=== PATIENT | female | born 1930 | race Caucasian/White ===

== ENCOUNTER 2017-12-16 20:01 | Inpatient (IN) | payer OTHER, MEDICARE ==
[~2017-12-16] VITALS: Ht 157.5 cm; Wt 76.9 kg
--- NOTE | 2017-12-16 20:19 | ED GENERAL ADULT ---
History of Present Illness General Chief Complaint: General Adult Stated Complaint: BIBA WEAKNESS Source: patient, family, EMS Exam Limitations: no limitations Vital Signs & Intake/Output Vital Signs & Intake/Output Vital Signs Date Time Temp Pulse Resp B/P B/P Pulse O2 O2 Flow FiO2 Mean Ox Delivery Rate 12/16 2130 62 113/60 12/16 2021 97 Room Air 12/16 2010 98.1 62 18 119/56 97 Room Air Allergies Coded Allergies: No Known Allergies (12/16/17) Triage Note: 87F BIBA FOR GENERAL MALAISE AND WEAKNESS MOSTLY TO LEGS. FAMILY REPORTS PT HAD A HEADACHE THIS MORNING AND WAS OBSERVED USING WALKING AND WEAK TO RIGHT SIDE WITH DRIFTING. PT STATES BOTH LEGS FELT WEAK AND IF THEY DIDN'T WANT TO WORK. ON ARRIVAL STRENGTH 5/5 AND NIHSS 0. SPEECH CLEAR, NO FACIAL DROOP AND AAOX4. ABLE TO FOLLOW COMMANDS. FOCAL NEUROS INTACT AND EOM INTACT. FTN INTACT. ACCUCHECK 193 ON ARRIVAL. SLIGHT FOOT TREMOR TO RIGHT. CONTINUES TO ENDORSE HEADACHE TO OCCIPUT AREA AND NECK. STATES "EVERYTHING HURTS" BUT DENIES SIGNIFICANT CP/SOB/PALPITATIONS Triage Nurses Notes Reviewed? yes HPI: Shortly after waking up this morning patient noticed a pressure sensation in the upper portion of her neck and lower portion of her head. Throughout the day the pain has waxed and waned in intensity but has not gone away entirely. Patient states his times a day feels like that area is very heavy and other times it feels like it is very light. Patient cannot rate the pain other than to say if it is moderate at worst and mild at best. There are no aggravating or mitigating factors. There is no radiation. This evening after dinner she got up to walk to the bathroom when all of a sudden in both of her legs felt very weak and she began to lean towards the right. Patient ambulates with a walker. Her family was able to catch her before she fell on a chair oh for her to sit in. After a few minutes patient was able to finish getting to the bathroom and with her daughter's health was able to use the facilities. Her daughter noticed that she was very shaky and appeared weak all over so she helped her in the bathroom. While walking out of the bathroom again she began to lean towards the right and was very weak and her family at her and again Sunday chair. EMS was contacted. Patient is currently feeling better from a weakness standpoint however she still has that pressure sensation in the back of her head. Past History Medical History Any Pertinent Medical History? see below for history Cardiovascular: CAD, hypertension, hyperlipidemia, mitral regurgitation Endocrine: diabetes Surgical History Surgical History: PACEMAKER Psychosocial History What is your primary language Guyanese Tobacco Use: Quit >30 days ago ETOH Use: denies use Illicit Drug Use: denies illicit drug use Family History Hx Contributory? No Review of Systems Review of Systems Constitutional: Reports: no symptoms. EENTM: Reports: no symptoms. Respiratory: Reports: no symptoms. Cardiovascular: Reports: no symptoms. GI: Reports: no symptoms. Genitourinary: Reports: no symptoms. Musculoskeletal: Reports: no symptoms. Skin: Reports: no symptoms. Neurological/Psychological: Reports: see HPI. Hematologic/Endocrine: Reports: no symptoms. Immunologic/Allergic: Reports: no symptoms. All Other Systems: Reviewed and Negative Physical Exam Physical Exam General Appearance: well developed/nourished, alert, awake, anxious, mild distress Head: atraumatic, normal appearance Eyes: Bilateral: PERRL, EOMI. Ears, Nose, Throat: normal pharynx, normal ENT inspection, hearing grossly normal, NO FACIAL DROOP Neck: normal inspection, supple, full range of motion, no midline tenderness Respiratory: normal breath sounds, chest non-tender, no respiratory distress, lungs clear Cardiovascular: regular rate/rhythm, normal peripheral pulses Gastrointestinal: normal bowel sounds, soft, non-tender, no organomegaly Back: normal inspection, normal range of motion Extremities: normal inspection, normal capillary refill, normal range of motion, no edema Neurologic/Psych: no motor/sensory deficits, awake, alert, oriented x 3, normal mood/affect, clinical administrative coordinator II-XII nml as tested Skin: intact, normal color, warm/dry Comments: NO PRONATOR DRIFT MOTOR 5/5 B/L AND SYMETRICAL NORMAL FINGER TO NOSE VISUAL MACK INTACT NORMAL SPEECH Core Measures ACS in differential dx? No CVA/TIA Diagnosis: No Sepsis Present: No Sepsis Focused Exam Completed? No Progress Differential Diagnoses I considered the following diagnoses in my evaluation of the patient: [CVA, ICH, CERVICAL INJURY, ELECTROLYTE ABNOMALITY, AMI, UTI, PNEUMONIA] Plan of Care: Orders Procedure Date/time Status Heart Healthy Diet 12/17 B Active ED Holding Orders 12/17 2207 Active Admit to inpatient 12/17 2207 Active Vital Signs 12/17 2207 Active Desouza, Insertion/Removal/Asses 12/17 2207 Active CULTURE,URINE 12/17 2207 Active Code Status 12/17 2207 Active Telemetry/Elevator Dispatcher 12/17 2011 Active URINALYSIS 12/17 2011 Active TROPONIN LEVEL 12/17 2011 Complete PARTIAL THROMBOPLASTIN TIME 12/17 2011 Complete PROTHROMBIN TIME 12/17 2011 Complete COMPREHENSIVE METABOLIC PANEL 12/17 2011 Complete CBC WITHOUT DIFFERENTIAL 12/17 2011 Complete EKG 12/17 2007 Active Current Medications Sig/Lucia Start time Last Medication Dose Stop Time Status Admin Aspirin 325 MG ONCE ONE 12/16 2144 UNVr 12/16 (Aspirin) 12/16 Sodium Chloride 1,000 ML Q6H 12/16 2044 AC 12/16 (Normal Saline 0.9%) 2034 Laboratory Tests 12/16/172021: Anion Gap 15, Estimated GFR 25 L, BUN/Creatinine Ratio 23.7, Glucose 178 H, Calcium 9.5, Total Bilirubin 0.8, AST 23, ALT 34, Alkaline Phosphatase 62, Troponin I 0.12 *H, Total Protein 7.3, Albumin 4.2, Globulin 3.1, Albumin/ Globulin Ratio 1.4, PT 13.0 H, INR 1.19, APTT 28, CBC w Diff NO MAN DIFF REQ, RBC 4.18 L, MCV 90.2, MCH 30.4, MCHC 33.7, RDW 13.1, MPV 8.7, Gran % 83.8 H, Lymphocytes % 8.9 L, Monocytes % 6.2, Eosinophils % 1.0, Basophils % 0.1, Absolute Granulocytes 7.9 H, Absolute Lymphocytes 0.8 L, Absolute Monocytes 0.6, Absolute Eosinophils 0.1, Absolute Basophils 0 Microbiology 12/17 2207 URINE ROUT: Urine Culture - ORD Diagnostic Imaging: Viewed by Me: Radiology Read, CT Scan. Discussed w/RAD: Radiology Read, CT Scan. Radiology Impression: PATIENT: EROS MCGOWAN PRESENT AGE : 87 PATIENT ACCOUNT NO: [id number] : [birth year] LOCATION: [facility] ORDERING PHYSICIAN: Andreas Villanueva MD SERVICE DATE: 12/16/17 EXAM TYPE: CAT - CT CERV SPINE WO IV CONTRAST; CT HEAD WO IV CONTRAST EXAMINATION: CT HEAD WITHOUT CONTRAST CT CERVICAL SPINE WITHOUT CONTRAST CLINICAL INFORMATION: Bilateral lower extremity weakness which has resolved. Posterior scalp headache all day. Neck pain all day. COMPARISON: Head and cervical spine CT 10/10/2008. TECHNIQUE: Axial images of the head and cervical spine were obtained without contrast. Reformatted images were reviewed. DLP 903. FINDINGS: Head CT: No intracranial hemorrhage or territorial infarction. No extra-axial fluid collection. No mass effect or midline shift. There is periventricular and subcortical white matter hypoattenuation which is consistent with sequela of ischemic microangiopathy. Ventricles and sulcal spaces are proportionate without hydrocephalus. No subgaleal hematoma. No calvarial fracture. Mastoid air cells and paranasal sinuses are aerated. Cervical spine CT: No fracture or dislocation. There is chronic appearing grade 1 anterolisthesis of C7 on T1. No other spondylolisthesis. No prevertebral soft tissue swelling. No widening of the atlantoaxial interval. There is a crowned dens appearance. Multilevel degenerative endplate changes and disc space narrowing with anterior and posterior osteophyte formation. There is a degree of ossification along the anterior and posterior longitudinal ligaments. Multilevel facet arthropathy. There is mild multilevel canal stenosis. Partially visualized left pectoral cardiac device. IMPRESSION: 1. No acute intracranial pathology. Chronic changes as above. 2. No acute cervical spine pathology. At least moderate multilevel degenerative changes of the cervical spine, which have progressed since 2007. DICTATED BY: Fausto Templeton MD DATE/TIME DICTATED:12/16/172034 CORPORATE MEETING PLANNER:JERRY DATE/TIME TRANSCRIBED:12/16/172034 CONFIDENTIAL, DO NOT COPY WITHOUT APPROPRIATE AUTHORIZATION. <Electronically signed in Other Vendor System> SIGNED BY: Fausto Templeton MD 12/16/172045 CXR Impression: PATIENT: EROS MCGOWAN PRESENT AGE: 87 PATIENT ACCOUNT NO: [id number] : [birth year] LOCATION: [facility] ORDERING PHYSICIAN: Andreas Villanueva MD SERVICE DATE: 12/16/17 EXAM TYPE: RAD - XRY- PORTABLE CHEST XRAY EXAMINATION: XR PORTABLE CHEST CLINICAL INFORMATION: Weakness and pneumonia. COMPARISON: None TECHNIQUE: Portable frontal view of the chest was obtained. FINDINGS: Left pectoral cardiac device with leads terminating over the right atrium and right ventricle. The lungs are well expanded. There is mild left midlung opacification. The right lung is clear. No overt pulmonary edema or pleural effusion. The cardiac contour is mildly enlarged. No acute osseous abnormalities. IMPRESSION: Mild left midlung opacification, consider subtle pneumonia or atelectasis. DICTATED BY: Fausto Templeton MD DATE/TIME DICTATED:12/16/172050 CORPORATE MEETING PLANNER:JERRY DATE/TIME TRANSCRIBED:12/16/172050 CONFIDENTIAL, DO NOT COPY WITHOUT APPROPRIATE AUTHORIZATION. <Electronically signed in Other Vendor System> SIGNED BY: Fausto Templeton MD 12/16/172056 Initial ED EKG: pacemaker rhythm Rhythm Strip: PACED Comments: Family states that the patient had very similar symptoms approximately 1 year ago when she had a urinary tract infection and her symptoms resolved after she received antibiotics. No fevers, chills or coughing. No signs of pneumonia. Unknown what her baseline creatinine is however family states that they have not heard that she has had any kidney problems. Departure Departure Disposition: STILL A PATIENT Condition: Fair Clinical Impression Primary Impression: Acute renal injury Secondary Impressions: Elevated troponin Referrals: Patient Has No Primary Care Dr Departure Forms: Customer Survey General Discharge Information Admission Note [facility]: [facility] Documentation of Exam: Documentation of any treatments & extenuating circumstances including Concerns Regarding Discharge (functional status, medication knowledge or non-compliance, living conditions, etc.) that warrant an admission rather than observation: [IV FLUIDS, ASA, CARDIOLOGY CONSULTATION, NEPHROLOGY CONSULTATION, STRICT I&O'S, FOLLOW UP UA FOR POSSIBLE UTI REQUIRING IV ABX.] Critical Care Note Critical Care Note Critical Care Time: non-applicable
[2017-12-16 20:37] LABS: ABSOLUTE BASOPHIL COUNT 0 /CUMM (0.0-0.2); ABSOLUTE EOSINOPHIL COUNT 0.1 /CUMM (0.0-0.7); ABSOLUTE GRANULOCYTE CT 7.9 /CUMM (1.4-6.5); ABSOLUTE LYMPH COUNT 0.8 /CUMM (1.2-3.4); ABSOLUTE MONOCYTE COUNT 0.6 /CUMM (0.10-0.60); BASOPHIL % 0.1 % (0.0-2.0); GRANULOCYTE % 83.8 % (42.2-75.2); HEMATOCRIT 37.7 % (37-47); MEAN CORPUSCULAR HGB 30.4 PG (27.0-31.0); MEAN CORPUSCULAR HGB CONC 33.7 G/DL (33.0-37.0); MEAN CORPUSCULAR VOLUME 90.2 FL (81.0-99.0); MEAN PLATELET VOLUME 8.7 FL (7.4-10.4); PLATELET COUNT 175 /CUMM (130-400); RBC DISTRIBUTION WIDTH 13.1 % (11.5-14.5); RED BLOOD CELL CT 4.18 /CUMM (4.20-5.40); WHITE BLOOD CELL COUNT 9.4 /CUMM (4.8-10.8)
[2017-12-16 20:42] LABS: PTT 28 SEC (25-37)
--- NOTE | 2017-12-16 20:46 | CT SCAN REPORT ---
EXAMINATION: CT HEAD WITHOUT CONTRAST CT CERVICAL SPINE WITHOUT CONTRAST CLINICAL INFORMATION: Bilateral lower extremity weakness which has resolved. Posterior scalp headache all day. Neck pain all day. COMPARISON: Head and cervical spine CT 10/10/2008. TECHNIQUE: Axial images of the head and cervical spine were obtained without contrast. Reformatted images were reviewed. DLP 903. FINDINGS: Head CT: No intracranial hemorrhage or territorial infarction. No extra-axial fluid collection. No mass effect or midline shift. There is periventricular and subcortical white matter hypoattenuation which is consistent with sequela of ischemic microangiopathy. Ventricles and sulcal spaces are proportionate without hydrocephalus. No subgaleal hematoma. No calvarial fracture. Mastoid air cells and paranasal sinuses are aerated. Cervical spine CT: No fracture or dislocation. There is chronic appearing grade 1 anterolisthesis of C7 on T1. No other spondylolisthesis. No prevertebral soft tissue swelling. No widening of the atlantoaxial interval. There is a crowned dens appearance. Multilevel degenerative endplate changes and disc space narrowing with anterior and posterior osteophyte formation. There is a degree of ossification along the anterior and posterior longitudinal ligaments. Multilevel facet arthropathy. There is mild multilevel canal stenosis. Partially visualized left pectoral cardiac device. IMPRESSION: 1. No acute intracranial pathology. Chronic changes as above. 2. No acute cervical spine pathology. At least moderate multilevel degenerative changes of the cervical spine, which have progressed since 2007.
--- NOTE | 2017-12-16 20:57 | RADIOLOGY REPORT ---
EXAMINATION: XR PORTABLE CHEST CLINICAL INFORMATION: Weakness and pneumonia. COMPARISON: None TECHNIQUE: Portable frontal view of the chest was obtained. FINDINGS: Left pectoral cardiac device with leads terminating over the right atrium and right ventricle. The lungs are well expanded. There is mild left midlung opacification. The right lung is clear. No overt pulmonary edema or pleural effusion. The cardiac contour is mildly enlarged. No acute osseous abnormalities. IMPRESSION: Mild left midlung opacification, consider subtle pneumonia or atelectasis.
--- NOTE | 2017-12-16 22:14 | History & Physical ---
Eriberto Harper MD 12/16/17 6884: General Information and HPI MD Statement: I have seen and personally examined EROS SANFORD and documented this H&P. The patient is a 87 year old F who presented with a patient stated chief complaint of [malaise and weakness]. Source of Information: patient, family History of Present Illness: Patient is 87-year-old female with past medical history of CAD status post CO and stent in 2009, status post pacemaker, mitral regurgitation hyperlipidemia, hypertension, diabetes presenting this admission after being brought in by ambulance due to generalized weakness mostly in the lower extremities. Patient's son and [id number] were at bedside and supplied much of the history. Reported that patient has been feeling weak over the past few days. Patient reports that her legs have been hurting and she occasionally feels numbness in both her legs. Patient's family reports that the reason for this admission is that the patient had eaten dinner at approximately 7 PM. At which point patient tried to stand up and walk with her walker however within a few minutes the patient started to collapse towards the floor favoring her right side. This was witnessed by the family will report that they were able to catch the patient before she could fall or hit her head. Patient denies any dizziness , lightheadedness, chest pain, palpitations, feeling of warmth, or numbness and tingling at the time of this event. Patient reports seeing white blotches prior to the event. Patient denies any physical trauma or loss of consciousness. Patient reports a decrease in appetite and reports trouble swallowing due to a fear of choking and reports feeling as though she has food stuck in her throat. Patient also reports early satiety. Denies odynophagia, abdominal pain, nausea/ vomitting, diarrhea/constipation, melena or hematochezia, fever/chills, or cough. Patient reports occasional burning on urination. Has urinary incontinence. Denies increased frequency. Denies hematuria. Patient reports dyspnea on exertion and orthopnea. Denies dyspnea at rest or bilateral lower extremity edema. Patient also reports headache around her occipital region, neck pain and shoulder pain for the past few days. Denies any decrease in range of motion. Denies any recent trauma or falls. Patient has had similar symptoms in the past. At that time she was admitted to [facility] and treated for a UTI. Deny any sick contacts or recent travel. Patient's PCP is Dr. Kyle and mixer operator raw salt is Dr. Ramirez ([place]). PMH: as above PSH: Angioplasty with stent placement, left sided knee replacement, carpal tunnel syndrome, back surgery, hysterectomy SH: Denies alochol, illicit drug or tobacco use. Lives with family (son and [id number]). Uses a rolling walker to assist in ambulation FH: Dad at age 91 of natural causes, mother at age 43 ( is unsure of reason, however denies cardiac problems) Allergies: Denies any drug allergies Allergies/Medications Allergies: Coded Allergies: No Known Allergies (12/16/17) Past History Travel History Traveled to [facility] past 21 day No Medical History Neurological: NONE EENT: NONE Cardiovascular: CAD, hypertension, hyperlipidemia, mitral regurgitation Respiratory: NONE Gastrointestinal: NONE Hepatic: NONE Renal: NONE Musculoskeletal: NONE Psychiatric: NONE Endocrine: diabetes Blood Disorders: NONE Surgical History Surgical History: PACEMAKER Past Family/Social History Psychosocial History ETOH Use: denies use Illicit Drug Use: denies illicit drug use Review of Systems Review of Systems Constitutional: Reports: see HPI. Cardiovascular: Reports: see HPI. Respiratory: Reports: see HPI. GI: Reports: no symptoms. Genitourinary: Reports: see HPI. Musculoskeletal: Reports: see HPI. Skin: Reports: no symptoms. Neurological/Psychological: Reports: see HPI, anxiety. Hematologic/Endocrine: Reports: no symptoms. Immunologic/Allergic: Reports: no symptoms. All Other Systems: Reviewed and Negative Exam & Diagnostic Data Last 24 Hrs of Vital Signs/I&O Vital Signs Date Time Temp Pulse Resp B/P B/P Pulse O2 O2 Flow FiO2 Mean Ox Delivery Rate 12/17 1151 61 110/60 03/05 1149 61 110/60 /05 0641 97.8 65 20 104/58 98 Room Air /05 0001 Room Air / 0001 98.2 66 18 104/56 96 Room Air /6 98.0 71 18 118/64 98 Room Air / 2131 62 113/60 /2021 97 Room Air 12/16 2010 98.1 62 18 119/56 97 Room Air Intake & Output / 1600 /05 0800 03/ 0000 Intake Total 1120 300 Output Total 500 100 Balance 620 200 Intake, IV 1000 300 Intake, Oral 120 Output, Urine 500 100 Patient 165 lb Weight Weight Bed scale Measurement Method Physical Exam General Appearance Alert, Oriented X3, Cooperative, No Acute Distress Skin Temp/Moisture Exam: Warm/Dry HEENT Atraumatic, PERRLA, EOMI, Mucous Membr. moist/pink Cardiovascular Regular Rate, Normal S1, Normal S2 Lungs Clear to Auscultation, Normal Air Movement Abdomen Normal Bowel Sounds, Soft, No Tenderness Neurological Normal Speech, Normal Tone, Sensation Intact, Cranial Nerves 3-12 NL, Reflexes 2+, strength decreased on left lower extremtiy 4/5, pronator drift of RUE Extremities No Clubbing, No Cyanosis, No Edema, Normal Pulses, No Tenderness/ Swelling Last 24 Hrs of Labs/Jose Juan: Laboratory Tests 12/16/172222: Urinalysis LIGHT H, Urine Color YEL, Urine Clarity HAZY H, Urine pH 6.0, Ur Specific [place] 1.015, Urine Protein TRACE H, Urine Ketones NEG, Urine Nitrite POS H, Urine Bilirubin NEG, Urine Urobilinogen 0.2, Ur Leukocyte Esterase NEG, Ur Microscopic SEDIMENT EXAMINED, Ur Epithelial Cells FEW, Urine Bacteria MANY H, Urine Hemoglobin TRACE-INTACT, Urine Glucose NEG 12/16/172021: Anion Gap 15, Estimated GFR 25 L, BUN/Creatinine Ratio 23.7, Glucose 178 H, Calcium 9.5, Total Bilirubin 0.8, AST 23, ALT 34, Alkaline Phosphatase 62, Creatine Kinase Pending, Troponin I 0.12 *H, Total Protein 7.3, Albumin 4.2, Globulin 3.1, Albumin/Globulin Ratio 1.4, PT 13.0 H, INR 1.19, APTT 28, CBC w Diff NO MAN DIFF REQ, RBC 4.18 L, MCV 90.2, MCH 30.4, MCHC 33.7, RDW 13.1, MPV 8.7, Gran % 83.8 H, Lymphocytes % 8.9 L, Monocytes % 6.2, Eosinophils % 1.0, Basophils % 0.1, Absolute Granulocytes 7.9 H, Absolute Lymphocytes 0.8 L, Absolute Monocytes 0.6, Absolute Eosinophils 0.1, Absolute Basophils 0 12/16/172011: Ur Random Creatinine 59.9, Ur Random Sodium 75, Ur Random Potassium 45.0, Fraction Sodium Excret 1.6 H Microbiology 12/16 2316 BLOOD: Blood Culture - CAN Cancelled: Cancelled via OE: Error 12/16 2316 BLOOD: Blood Culture - CAN Cancelled: Cancelled via OE: Error 12/16 2255 BLOOD: Blood Culture - RES 12/16 2222 URINE ROUT: Urine Culture - RES GRAM NEGATIVE RODS Assessment/Plan Assessment: Patient is 87-year-old female with past medical history of CAD status post CO and stent in 2009, status post pacemaker, mitral regurgitation hyperlipidemia, hypertension, diabetes presenting this admission after being brought in by ambulance due to generalized weakness mostly in the lower extremities. Assessment and Plan: Patient is an 87 y/o female with signficant cardiac history presenting with generalized weakness and signs of focal neurologic deficits with pronator drift and lower extremity weakness greater on the left side. Patient reports dysuria and on UA patient has nitrites and bacteria. Patient's weakness may be attributed to UTI however due to neurologic deficits patient should be further evaluated for possible stroke. Patient's CXR shows mid left lung opacification which may be indicative of pneumonia vs atelectasis however with no fever, respiratory distress, or leukocytosis it is unlikely that patient has pneumonia. Patient's creatinine was 1.9. Patient reports decreased appetite. Per records from [place] patient's creatinine is around 1.5. Patient's acute renal failure is likey prerenal due to poor oral intake. Patient's head, neck and shoulder pain is likely secondary to arthritic changes seen on cervical spine CT. No acute finds seen on cervical spine CT or head CT. Patient also had elevated troponin with no EKG changes. Due to patient's signficant cardiac history and mildly elevated trops she will be admitted to telemetry. Patient's elevated troponin is likley secondary to demand ischemia, however will need to rule out ACS. Problems: 1. Generalized weakness 2. Rule out stroke 3. UTI 4. Elevated Troponin 5. OTILIO on CKD 6. CAD s/p pacemaker and stent Plan: Admit to telemetry Neurochecks q4h Serial EKG and troponin ECHO Cardiology consult placed with Dr. Epperson MRI (if compatible with stent and pacemaker) Aspirin Continue Plavix Atorvastatin Ceftriaxone for UTI Follow up urine culture and blood cultures x 2 Repeat CBC and BEP in AM Consider pacemaker interrogation Obtain records from [place] mixer operator raw salt and [facility] PT/OT consult Insulin SS with Accuchecks Gentle IV hydration Avoid nephrotoxic agents Hold lasix and losartan at this time Continue pepcid ac Code: Full code Diet: Diabetic diet DVT PPx: ALPS, Heparin SC As Ranked By This Provider Problem List: 1. Acute renal injury 2. Elevated troponin Core Measures/Misc (07/01) Acute Coronary Syndrome ACS Diagnosis: No Congestive Heart Failure Congestive Heart Failure Diagnosis No Cerebrovascular Accident CVA/TIA Diagnosis: Yes VTE (View Protocol) VTE Risk Factors Age>40 No Mechanical VTE Prophylaxis d/t N/A MechProphylax Ordered No VTE Pharm Prophylaxis d/t NA PharmProphylax ordered Sepsis (View protocol) Sepsis Present: No Caleb Connoroswaldo 12/17/17 0223: General Information and HPI Allergies/Medications Home Med list Carvedilol 6.25 MG TABLET 1 TAB PO BID HEART (Reported) Clopidogrel Bisulfate (Clopidogrel) 75 MG TABLET 1 TAB PO DAILY HEART ( Reported) Furosemide 40 MG TABLET 1 TAB PO DAILY HEART (Reported) Linagliptin (Tradjenta) 5 MG TABLET 1 TAB PO DAILY DIABETES (Reported) Losartan Potassium 100 MG TABLET 1 TAB PO DAILY HEART (Reported) Potassium Chloride 10 MEQ TAB.ER.PRT 1 TAB PO DAILY HEART (Reported) Rosuvastatin Calcium (Crestor) 40 MG TABLET 1 TAB PO DAILY HEART (Reported) Resident Review Statement Resident Statement: examined this patient, discussed with accounting intern, agreed with accounting intern, amended to note Other Findings: Ms Sanford is an 87 year old woman w/ a PMHx of CAD s/p PCI ( LAD stent, type unclear ), ishcemic dilated cardiomyopathy, HFrEF, bradyarrythmis s/p pacemaker ( follows w/ Dr. Ramirez ), MR who was brought in w/ a chief concern of occipital headache, bilateral lower extremity weakness, difficulty in ambulation with drifting to right side while walking 1 day. She started having occipital headache after she woke up which was not relieved, and felt weak in her lower extremities after she sat in a chair for a few hours. After she got out of her chair, she had difficulty ambulating and was drifting to the right side upon walking. She did not have any neurological weakness, tingling numbness sensation, loss of bladder bowel function, seizures, loss of consciousness, vision changes. She did not have any chest pain, palpitations, shortness of breath. No nausea vomiting or diarrhea. Reported occasional dysuria. She also reported difficulty swallowing occasionally, but did not have any odynophagia. She was not evaluated by gold leaf laborer so far. At the time of admission, vitals-temperature 98.1, pulse rate 62, respiration 18 , blood pressure 119/56, pulse ox 97% on room air. On examination, she appeared euvolemic. And she was alert oriented 3. No pallor, lymphadenopathy noted. Heart and lung examination were within normal limits. Neurological examination- cranial nerve examination within normal limits, strength 4/5 right upper and lower extremities, reflexes 5/5 bilaterally, no sensory deficits. Pedal edema 2 +. Pertinent lab findings: WBC 9.4, hemoglobin 12.7 Sodium 140, potassium 4.8, carbonate 26 BUN 45, creatinine 1.9 (baseline unknown, history of chronic kidney disease) Troponin 0.16 Urinalysis revealed urine nitrite positive, leukocyte esterase negative. CT scan head revealed no acute pathology, or have any radiological signs suggestive of infarction or hemorrhage. Multilevel degenerative changes of cervical spine were noted. Chest x-ray revealed mild left mid lung opacification seen. Etiology in her case was likely multifactorial, with decreased by mouth intake causing increased weakness or lethargy. She also had UA suggestive of urinary tract infection which could have led to her weakness. Considering her history of bradycardia arrhythmias and pacemaker, TIA/CVA needs to be ruled out. Plan: 1. Weakness-likely multifactorial. - For UTI, she needs to be treated w/ ceftriaxone pending culture results. - In regards to dehydration, would replenish with IV fluids 1 bag. - For ruling out stroke, MRI could be obtained in the a.m. after evaluating the compatibility of pacemakers. 2. Elevated cardiac enzymes - Treat with aspirin, and trend EKG and cardiac enzymes. - Cardiac consult to be obtained - Defer the decision to the mixer operator raw salt, if a cardiac damage be done. -Continue beta donna and statin. 3. Hypertension -Would continue Coreg. 4. AKA on CKD - Unsure about the baseline of serum creatinine. - Obtain records from [facility] - Strict ins and outs - Hold Lasix and losartan for now. - Recheck BP in the a.m., and restart Lasix after serum creatinine is drifting down. 5. Rule out CVA/TIA - Was given statin, aspirin. - Continue Plavix. - MRI in the a.m. If it is abnormal, neurological evaluation to be obtained. - Check carotid Dopplers. - Swallow evaluation for history of difficulty swallowing. 6. Diabetes -Old all hypoglycemic drugs - Continue insulin sliding scale, Accu-Cheks for now. Housekeepin. DVT prophylaxis-heparin subcutaneous 2. GI prophylaxis-Pepcid 3. Lites-peripheral lines. 4. CODE STATUS-full code. Guilherme WALKER, [facility] 12/17/17 0353: Attending MD Review Statement Attending Statement Attending MD Statement: examined this patient, discuss w/resident/PA/WAREHOUSE INCENTIVE SELECTOR, agreed w/resident/PA/WAREHOUSE INCENTIVE SELECTOR, discussed with family, reviewed images, amended to note Attending Assessment/Plan: 87 yo F with h/o T2DM, HTN, CAD s/p LAD stent, ischemic dilated CMP, chronic systolic CHF, bradyarrhythmia s/p PPM, mitral regurgitation, who follows with Dr. Ramirez (Cardiology) and all specialists out of [facility], is brought in by family for evaluation of occipital headache, neck pain, generalized weakness, bilateral lower extremity weakness, difficulty ambulating with leaning towards the right side that occurred on the day of admission. Family was able to catch her preventing a fall. Patient states that her legs gave away and she felt as thought the legs were not there. She did need assistance to use the bathroom and was noticebly weak. At baseline, she ambulates with a walker. Patient does report intermittent dysuria, but no urinary frequency or hematuria. Her appetite is good, she keeps herself hydrated. She denies nausea, vomiting, abdominal pain , diarrhea. Her symptoms are similar to her last admission to [facility] (2017 ) for a UTI. She has no previous h/o TIA or stroke. She reports 3-4 week h/o food getting stuck in her chest, c/o early satiety. She has to give it some time or has to burp before she can take the next bite. She denies dysphagia or odynophagia. She has never seen a GI specialist or undergone an EGD. She takes pepcid for GERD. Vitals stable. Exam: AAO, lethargic but arousable and answer questions appropriately, PERRL, Neck supple, mucous membranes moist, Chest b/l clear, Neuro: no facial droop, speech clear, cranial nerves intact, plantar unequivocal on the left foot, pronator drift slightly to the right, power 4/5 right side, sensation intact. Abd soft, left lower quadrant tenderness on deep palpation, BS+. LE: 1+ edema. Labs: no leukocytosis, INR 1.19, BUN 45, creat 1.9 (no baseline known), glucose 178, trop 0.12. UA hazy, trace proteinuria, nitrite positive, many bacteria, no WBC. CT head/ cervical spine: no acute pathology, chronic multilevel degenerative changes of cervical spine that have progressed. CXR: mild left midlung opacification, ?atelectasis or pneumonia. EKG: paced, Qtc 492. Assessment and plan: 1. Weakness, lethargy, headache 2. Acute kidney injury vs. OTILIO on CKD 3. Symptomatic acute UTI 4. Rule out TIA/ stroke 5. Elevated troponin likely demand ischemia vs reduced clearance by kidneys 6. Chronic systolic heart failure, CAD 7. Type 2 diabetes - Admit to Telemetry - Neurochecks Q4 - Fall precautions - Hold lasix and losartan - Check urine lytes - Gentle hydration, follow renal functions in AM - Strict I/O's, guerrero placed in ER - Serial EKG and troponin - Obtain echo and Cardio consult - Continue aspirin, plavix, coreg and statin - Follow urine culture, treat with Ceftriaxone. If cultures are negative, can discontinue ceftriaxone. - Obtain records from patient's mixer operator raw salt and PCP baseline renal functions - Obtain MRI brain (if pacemaker and stent compatible) - PT/OT eval - Consider Neuro consult if no clinical improvement - Passed bedside swallow eval - Check carotid dopplers - Diabetes management check HbA1c, novolog SS, hold tradjenta DVT ppx Hep SC. Full code.
--- NOTE | 2017-12-16 22:42 | Admission Certification ---
Admission Certification Certification Statement - As attending physician, I certify that at the time of - admission, based on clinical presentation, severity of - symptoms, need for further diagnostic testing and - therapeutic interventions, and risk of adverse outcomes - without in-hospital treatment, in my clinical assessment, - this patient requires an acute hospital stay for a minimum - of two nights or longer. I have also considered psychsocial - factors such as support system, advanced age, financial - issues, cognitive issues, and failed out-patient treatments, - past re-admission history, safety of patient, and lack of - compliance as applicable. Specific rationale supporting this admission is: OTILIO, elevated troponin, lethargy, weakness, rule out TIA/ stroke.
[2017-12-16] MEDS ORDERED: TRADJENTA5 M1 PO (23:41)
[2017-12-16] MEDS ORDERED: FUROSEMIDE40 M1 PO (23:41)
[2017-12-16] MEDS ORDERED: CARVEDILOL6.25 M1 PO (23:41)
[2017-12-16] MEDS ORDERED: LOSARTAN POTAS100 M1 PO (23:41)
[2017-12-16] MEDS ORDERED: CLOPIDOGREL75 M1 PO (23:42)
[2017-12-16] MEDS ORDERED: CRESTOR40 M2 PO (23:42)
[2017-12-16] MEDS ORDERED: POTASSIUM CHLO10 ME5 PO (23:42)
[2017-12-17 00:01] VITALS: BP 104/56; BP 194/56
[2017-12-17 06:01] LABS: ABSOLUTE BASOPHIL COUNT 0 /CUMM (0.0-0.2); ABSOLUTE EOSINOPHIL COUNT 0.1 /CUMM (0.0-0.7); ABSOLUTE GRANULOCYTE CT 5.8 /CUMM (1.4-6.5); ABSOLUTE LYMPH COUNT 1.4 /CUMM (1.2-3.4); ABSOLUTE MONOCYTE COUNT 0.8 /CUMM (0.10-0.60); BASOPHIL % 0.2 % (0.0-2.0); EOSINOPHIL % 1.1 % (0-5); MEAN CORPUSCULAR HGB 30.5 PG (27.0-31.0); MEAN CORPUSCULAR HGB CONC 33.8 G/DL (33.0-37.0); MEAN CORPUSCULAR VOLUME 90.2 FL (81.0-99.0); MEAN PLATELET VOLUME 9.1 FL (7.4-10.4); PLATELET COUNT 149 /CUMM (130-400); RED BLOOD CELL CT 3.49 /CUMM (4.20-5.40); WHITE BLOOD CELL COUNT 8.2 /CUMM (4.8-10.8)
[2017-12-17 06:19] LABS: HEMATOCRIT 31.5 % (37-47)
[2017-12-17 06:41] VITALS: BP 104/58
--- NOTE | 2017-12-17 07:36 | PN- Housestaff ---
Hilton WALKER,[facility] 12/17/17 0735: Subjective Follow-up For: Headache and Bilateral leg weakness worse on left Right pronator drift concerning for TIA versus stroke Symptomatic UTI Elevated troponin Chronic systolic heart failure Complaints: bilateral leg weakness Tele-Events Since Last Visit: Sinus rhythm. Paced. Heart rate 60-61 bpm. Subjective: Patient complains of bilateral leg weakness worse on the left. She denies headaches, blurring of vision, neck stiffness. She denies weakness or numbness in any other part of the body. She however complains of intermittent burning on urination for the last few days but denies hematuria. She denies fevers, chills , nausea or vomiting or abdominal pain. She denies shortness of breath or cough. She denies chest pains, palpitations or lightheadedness. Review of Systems Constitutional: Reports: see HPI. Denies: chills, fever. Objective Last 24 Hrs of Vital Signs/I&O Vital Signs Date Time Temp Pulse Resp B/P B/P Pulse O2 O2 Flow FiO2 Mean Ox Delivery Rate 12/17 0641 97.8 65 20 104/58 98 Room Air 12/17 0001 Room Air 12/17 0001 98.2 66 18 104/56 96 Room Air 12/16 2226 98.0 71 18 118/64 98 Room Air 12/16 2131 62 113/60 12/16 2021 97 Room Air 12/16 2010 98.1 62 18 119/56 97 Room Air Intake & Output / 1600 /05 0800 03/ 0000 Intake Total 1120 300 Output Total 500 100 Balance 620 200 Intake, IV 1000 300 Intake, Oral 120 Output, Urine 500 100 Patient 165 lb Weight Weight Bed scale Measurement Method Physical Exam General Appearance: Alert, Oriented X3, Cooperative, No Acute Distress Skin: No Rashes Skin Temp/Moisture Exam: Warm/Dry Sepsis Skin Exam (color): Normal for Ethnicity HEENT: Atraumatic, PERRLA, EOMI, Mucous Membr. moist/pink Neck: Supple, No JVD, No thryomegaly, +2 Carotid Pulse wo Bruit Lymphatic: Cervical nl Cardiovascular: Regular Rate, Normal S1, Normal S2, No Murmurs Lungs: Clear to Auscultation, Normal Air Movement Abdomen: Normal Bowel Sounds, Soft, No Tenderness, No Hepatospenomegaly, No Masses Neurological: Normal Speech, Normal Tone, Sensation Intact, Cranial Nerves 3-12 NL, bilateral lower limb weakness with quadriceps: right 4+/5 strength, left 4/5 strength., no facial droop. Extremities: No Edema, Normal Pulses, No Tenderness/Swelling, Small right groin, abscess Vascular: Normal Pulses Current Medications: Current Medications Sig/Lucia Start time Last Medication Dose Route Stop Time Status Admin Acetaminophen 650 MG Q8P PRN 12/16 2345 AC PO Acetaminophen 0 .STK-MED ONE 12/16 2133 DC PO Acetaminophen 650 MG ONCE ONE 12/16 2129 DC 12/16 PO 12/16 Aspirin 81 MG DAILY 12/17 1000 AC PO Aspirin 0 .STK-MED ONE 12/16 2200 DC PO Aspirin 325 MG ONCE ONE 12/16 2144 DC 12/16 PO 12/16 Atorvastatin Calcium 80 MG 1700 12/17 1700 AC PO Carvedilol 6.25 MG BID 12/17 1000 AC PO Ceftriaxone Sodium 1,000 MG 2300 12/17 2300 AC IV Ceftriaxone Sodium 1,000 MG ONCE ONE 12/16 2315 DC 12/17 IV 12/16 2316 0310 Clopidogrel Bisulfate 75 MG DAILY 12/17 1000 AC PO Famotidine 20 MG DAILY 12/17 1000 AC PO Heparin Sodium 5,000 UNIT Q8 12/17 0600 AC 12/17 (Porcine) SC 0559 Insulin Aspart 0 TIDAC 12/17 0800 AC SC Morphine Sulfate 2 MG Q8P PRN 12/17 0430 DC IV Senna/Docusate Sodium 1 TAB AT BEDTIME 12/17 2200 AC PO Sodium Chloride 1,000 ML Q6H 12/16 2045 DC 12/17 IV 12/17 0244 0312 Tramadol HCl 50 MG Q8P PRN 12/17 0430 AC PO Last 24 Hrs of Lab/Jose Juan Results Last 24 Hrs of Labs/Mics: Laboratory Tests 12/17/17 0400: Troponin I 0.16 *H, Triglycerides 48, Cholesterol 83, LDL Cholesterol, Calc 22 L, HDL Cholesterol 52, Cholesterol/HDL Ratio 2 12/17/17 0400: Anion Gap 12, Estimated GFR 28 L, BUN/Creatinine Ratio 25.3 H, CBC w Diff NO MAN DIFF REQ, RBC 3.49 L, MCV 90.2, MCH 30.5, MCHC 33.8, RDW 13.0, MPV 9.1, Gran % 71.0, Lymphocytes % 17.6 L, Monocytes % 10.1 H, Eosinophils % 1.1, Basophils % 0.2, Absolute Granulocytes 5.8, Absolute Lymphocytes 1.4, Absolute Monocytes 0.8 H, Absolute Eosinophils 0.1, Absolute Basophils 0 12/16/172313: Lactic Acid Cancelled 12/16/172222: Urinalysis LIGHT H, Urine Color YEL, Urine Clarity HAZY H, Urine pH 6.0, Ur Specific [place] 1.015, Urine Protein TRACE H, Urine Ketones NEG, Urine Nitrite POS H, Urine Bilirubin NEG, Urine Urobilinogen 0.2, Ur Leukocyte Esterase NEG, Ur Microscopic SEDIMENT EXAMINED, Ur Epithelial Cells FEW, Urine Bacteria MANY H, Urine Hemoglobin TRACE-INTACT, Urine Glucose NEG 12/16/172021: Anion Gap 15, Estimated GFR 25 L, BUN/Creatinine Ratio 23.7, Glucose 178 H, Calcium 9.5, Total Bilirubin 0.8, AST 23, ALT 34, Alkaline Phosphatase 62, Troponin I 0.12 *H, Total Protein 7.3, Albumin 4.2, Globulin 3.1, Albumin/ Globulin Ratio 1.4, PT 13.0 H, INR 1.19, APTT 28, CBC w Diff NO MAN DIFF REQ, RBC 4.18 L, MCV 90.2, MCH 30.4, MCHC 33.7, RDW 13.1, MPV 8.7, Gran % 83.8 H, Lymphocytes % 8.9 L, Monocytes % 6.2, Eosinophils % 1.0, Basophils % 0.1, Absolute Granulocytes 7.9 H, Absolute Lymphocytes 0.8 L, Absolute Monocytes 0.6, Absolute Eosinophils 0.1, Absolute Basophils 0 12/16/172011: Ur Random Creatinine 59.9, Ur Random Sodium 75, Ur Random Potassium 45.0, Fraction Sodium Excret 1.6 H Microbiology 12/17 2315 BLOOD: Blood Culture - CAN Cancelled: Cancelled via OE: Error 12/17 2315 BLOOD: Blood Culture - CAN Cancelled: Cancelled via OE: Error 12/16 2254 BLOOD: Blood Culture - RECD 12/16 2222 URINE ROUT: Urine Culture - RES GRAM NEGATIVE RODS Assessment/Plan Assessment: Ms Sanford is an 87 year old woman w/ a PMHx of CAD s/p PCI ( LAD stent, type unclear ), ishcemic dilated cardiomyopathy, HFrEF, bradyarrythmis s/p pacemaker ( follows w/ Dr. Ramirez ), mitral regurgitation who presented with a chief concern of occipital headache, bilateral lower extremity weakness, difficulty in ambulation with drifting to right side while walking on the day of presentation. She does have some dysphagia with feeling of food stuck in her chest for the past month along with intermittent dysuria this week. She has had a similar presentation with weakness at [facility] when she had a UTI in 2017. CT of her head is negative for any acute intracranial lesion or bleed. And the CT cervical spine showed no acute lesion of the cervical spine. Chest x-ray showed midlung opacification on the left suspicious for subtle pneumonia or atelectasis. However she has no pulmonary symptoms. She is being evaluated for left leg weakness with concerns for evolving stroke, UTI and elevated troponin in setting of acute on chronic CKD. Problem 1. Left leg weakness, lethargy and headache, possible TIA or stroke * Neurology consult this morning * Obtain MRI if patient stents and pacer are compatible with MRI * Neurochecks with NIH stroke scale every 4 hours * Lipid panel this morning within acceptable limits with LDL 22 and HDL 52 * Continue Lipitor 80 mg daily and aspirin 81 mg daily * Patient already on Plavix 75 mg daily for CAD 2. Acute kidney injury on CKD * Patient had a prior creatinine of 1.44 in February 2017-from review of records from [place] * Creatinine has improved from 1.9 to 1.7 today after hydration with 1 L of normal saline * Discontinue IV fluids on account of her history of systolic heart failure * Urine lites shows Fena of 1.6 consistent with CKD * Continue to hold losartan and lasix * Follow nephrology recommendations 3. Symptomatic acute UTI * Urinalysis shows positive nitrites with no WBC * Urine culture is growing gram-negative rods * We'll continue IV ceftriaxone 1 g daily for total of 3 days 4. Elevated troponin likely demand ischemia vs reduced clearance by kidneys * Troponin trended from 0.12 on admission to 0.16, likely due to demand ischemia with no EKG changes * Continued monitoring serial EKGs and and trend troponin until peak * Cardiology consult * Echocardiogram 6. Chronic systolic heart failure, CAD * Continue albuterol 6.25 mg twice a day 7. Type 2 diabetes * Continue NovoLog sliding scale * Accu-Cheks 3 times a day before meals 8. Left groin abscess near vulva * Consult to general surgery for Incision and drainage 9. DVT prophylaxis Subcutaneous heparin 5000 units every 8 hours Status: Full code Problem List: 1. Elevated troponin 2. Acute renal injury Pain Ratin Pain Location: None Pain Goal: Remain pain free Pain Plan: Tylenol as needed Tomorrow's Labs & Rationales: CBC for anemia, BEP for electrolytes and creatinine monitoring. DVT/Prophylaxis: pharmacological Venkat Calix MD 12/17/17 1118: Attending MD Review Statement Attending Statement Attending MD Statement: examined this patient, discuss w/resident/PA/OUTBOUND SALES EXECUTIVE, agreed w/resident/PA/[employer] SALES EXECUTIVE, reviewed EMR data (avail), discussed with nursing, discussed with case mgmt, amended to note Attending Assessment/Plan: Patient seen and examined. Lying in bed and not in acute distress. Complains of lethargy. Denies chest pain or palpitations. Denies shortness of breath. On examination she is not in any acute distress. Heart sounds are regular. Lungs are clear bilaterally. Abdomen is soft and nontender. She has no peripheral edema. Power in the bilateral upper extremities is 5/5. In her lower extremities power is 3/5 in the left lower extremity. Cranial nerves II through XII are intact. Speech is intact. Patient reports that her weakness in her left lower extremity is chronic and has been going on for several months. She reports that because of this she ambulates with use of walker. She denies knowledge of any prior workup done to evaluate the weakness. Recommendations: -Obtain records from [facility] to determine a baseline renal function.-Also obtain records from her primary care provider. -Neurology consultation for her left lower extremity weakness. Chest x-ray raises concern for left -Lung pneumonia. Patient however has no respiratory symptoms. She is afebrile and hemodynamically stable. She has no leukocytosis. -Patient did have a drop in her hemoglobin compared to presentation. She denies any bright red blood per rectum. Repeat hemoglobin level this afternoon. Check stool guaiac. Check iron profile. Check baseline labs. -Troponin is rising up slowly. She has no cardiac complaints. No events of on telemetry monitoring. Please obtain cardiology consultation. Obtain echocardiogram. -Lasix and losartan are on hold pending review of her baseline labs. Monitor daily weight. Blood pressure and volume status closely.
--- NOTE | 2017-12-17 11:42 | Cons- Nephrology ---
General Information and HPI Consulting Request Date of Consult: 12/17/17 Requested By: Venkat Calix MD Reason for Consult: ?OTILIO vs CKD Source of Information: patient, old records Exam Limitations: no limitations History of Present Illness: The patient is an 87-year-old woman with a past medical history most significant for stage III chronic kidney disease with baseline creatinine approximately 1.2- 1.6, one-year history of diabetes, 50 year history of hypertension, ICM with LVEF 35% with moderate/severe MR with mildly reduced RV function who presents with a fall. Patient was in her usual state of health when she had a mechanical fall at home. No presyncopal symptoms. No loss of consciousness. In speaking with the patient, she said she had been having poor by mouth intake last couple weeks. She been combining of some dysphagia. Some nausea but no vomiting. No diarrhea. No fevers or chills. Continue to take her medications which include furosemide 40 mg daily and losartan 100 mg daily. Presentation, blood pressure 119/56 which is currently 104/58 - afebrile. Notable for white blood cell count 9.4, creatinine 1.9, troponin 0.12. Chest x- ray suggestive of subtle pneumonia or atelectasis in the left midlung without pulmonary edema. UA with positive nitrate, neg leuk esterase, many bacteria - trace protein. FENa 1.6%. Should note that the patient denies any NSAID use. She denies urinary urgency, difficulties, or gross hematuria. She does however note intermittent dysuria over the last couple weeks. Allergies/Medications Allergies: Coded Allergies: No Known Allergies (12/16/17) Home Med List: Carvedilol 6.25 MG TABLET 1 TAB PO BID HEART (Reported) Clopidogrel Bisulfate (Clopidogrel) 75 MG TABLET 1 TAB PO DAILY HEART ( Reported) Furosemide 40 MG TABLET 1 TAB PO DAILY HEART (Reported) Linagliptin (Tradjenta) 5 MG TABLET 1 TAB PO DAILY DIABETES (Reported) Losartan Potassium 100 MG TABLET 1 TAB PO DAILY HEART (Reported) Potassium Chloride 10 MEQ TAB.ER.PRT 1 TAB PO DAILY HEART (Reported) Rosuvastatin Calcium (Crestor) 40 MG TABLET 1 TAB PO DAILY HEART (Reported) Current Medications: Current Medications Sig/Lucia Start time Last Medication Dose Route Stop Time Status Admin Acetaminophen 650 MG Q8P PRN 12/16 2345 AC PO Acetaminophen 0 .STK-MED ONE 12/16 2133 DC PO Acetaminophen 650 MG ONCE ONE 12/16 2129 DC 12/16 PO 12/16 Aspirin 81 MG DAILY 12/17 1000 AC PO Aspirin 0 .STK-MED ONE 12/16 2200 DC PO Aspirin 325 MG ONCE ONE 12/16 2144 DC 12/16 PO 12/16 2145 2158 Atorvastatin Calcium 80 MG 1700 12/17 1700 AC PO Carvedilol 6.25 MG BID 12/17 1000 AC PO Ceftriaxone Sodium 1,000 MG 2300 12/17 2300 AC IV Ceftriaxone Sodium 1,000 MG ONCE ONE 12/16 2315 DC 12/17 IV 12/16 2316 0310 Clopidogrel Bisulfate 75 MG DAILY 12/17 1000 AC PO Famotidine 20 MG DAILY 12/17 1000 AC PO Heparin Sodium 5,000 UNIT Q8 12/17 06 AC 12/17 (Porcine) SC 0559 Insulin Aspart 0 TIDAC 12/17 0800 AC SC Morphine Sulfate 2 MG Q8P PRN 12/17 0430 DC IV Senna/Docusate Sodium 1 TAB AT BEDTIME 12/17 2199 AC PO Sodium Chloride 1,000 ML Q6H 12/16 2044 DC 12/17 IV 12/17 0244 0312 Tramadol HCl 50 MG Q8P PRN 12/17 0430 AC PO Review of Systems Review of Systems: Complete 14 point ROS neg except as per HPI. Past History Travel History Traveled to [place] past 21 day No Medical History Neurological: NONE EENT: NONE Cardiovascular: CAD, hypertension, hyperlipidemia, mitral regurgitation Respiratory: NONE Gastrointestinal: NONE Hepatic: NONE Renal: NONE Musculoskeletal: NONE Psychiatric: NONE Endocrine: diabetes Blood Disorders: NONE Surgical History Surgical History: PACEMAKER Psychosocial History Smoking Status: Never Smoked ETOH Use: denies use Illicit Drug Use: denies illicit drug use Exam & Diagnostic Data Vital Signs and I&O Vital Signs Date Time Temp Pulse Resp B/P B/P Pulse O2 O2 Flow FiO2 Mean Ox Delivery Rate 12/17 640 97.8 65 20 104/58 98 Room Air 12/17 2225 Room Air 12/17 2225 98.2 66 18 104/56 96 Room Air 12/16 2225 98.0 71 18 118/64 98 Room Air 12/16 2130 62 113/60 12/16 2021 97 Room Air 12/16 2010 98.1 62 18 119/56 97 Room Air Intake & Output 12/17 0400 Intake Total 1120 300 Output Total 500 100 Balance 620 200 Intake, IV 1000 300 Intake, Oral 120 Output, Urine 500 100 Patient 165 lb Weight Weight Bed scale Measurement Method Physical Exam: Gen - ok appearing, NAD Head - NCAT Eyes - anicteric sclera, EOMI Neck - supple, JVP up CV - RRR, no m/r/g Chest - L basilar crackles, no wheezes/rhonchi Abd - soft, NTND Upper ext - warm, no edema Lower ext- warm, no edema Skin - no rash or jaundice Neuro - AOX3, grossly nonfocal Results Pertinent Lab Results: Laboratory Tests 12/17 12/17 12/17 1100 0400 0400 Chemistry Sodium (137 - 145 mmol/L) 139 Potassium (3.5 - 5.1 mmol/L) 4.2 Chloride (98 - 107 mmol/L) 105 Carbon Dioxide (22 - 30 mmol/L) 22 Anion Gap (5 - 16) 12 BUN (7 - 17 mg/dL) 43 H Creatinine (0.5 - 1.0 mg/dL) 1.7 H Estimated GFR (>60 ml/min) 28 L BUN/Creatinine Ratio (7 - 25 %) 25.3 H Troponin I (< 0.11 ng/ml) Pending 0.16 *H Triglycerides (<150 mg/dL) 48 Cholesterol (<200 MG/DL) 83 LDL Cholesterol, Calc (65 - 129 mg/dL) 22 L HDL Cholesterol (40 - 60 mg/dL) 52 Cholesterol/HDL Ratio (0.00 - 4.23 %) 2 Hematology CBC w Diff NO MAN DIFF REQ WBC (4.8 - 10.8 /CUMM) 8.2 RBC (4.20 - 5.40 /CUMM) 3.49 L Hgb (12.0 - 16.0 G/DL) 10.7 L Hct (37 - 47 %) 31.5 L MCV (81.0 - 99.0 FL) 90.2 MCH (27.0 - 31.0 PG) 30.5 MCHC (33.0 - 37.0 G/DL) 33.8 RDW (11.5 - 14.5 %) 13.0 Plt Count (130 - 400 /CUMM) 149 MPV (7.4 - 10.4 FL) 9.1 Gran % (42.2 - 75.2 %) 71.0 Lymphocytes % (20.5 - 51.1 %) 17.6 L Monocytes % (1.7 - 9.3 %) 10.1 H Eosinophils % (0 - 5 %) 1.1 Basophils % (0.0 - 2.0 %) 0.2 Absolute Granulocytes (1.4 - 6.5 /CUMM) 5.8 Absolute Lymphocytes (1.2 - 3.4 /CUMM) 1.4 Absolute Monocytes (0.10 - 0.60 /CUMM) 0.8 H Absolute Eosinophils (0.0 - 0.7 /CUMM) 0.1 Absolute Basophils (0.0 - 0.2 /CUMM) 0 12/16 12/16 2314 2223 Chemistry Lactic Acid Cancelled Urines Urinalysis LIGHT H Urine Color (YEL,AMB,STR) YEL Urine Clarity (CLEAR) HAZY H Urine pH (5.0 - 8.0) 6.0 Ur Specific [place] (1.001 - 1.035) 1.015 Urine Protein (NEG,<30 MG/DL) TRACE H Urine Ketones (NEG) NEG Urine Nitrite (NEG) POS H Urine Bilirubin (NEG) NEG Urine Urobilinogen (0.1 - 1.0 EU/dl) 0.2 Ur Leukocyte Esterase (NEG) NEG Ur Microscopic SEDIMENT EXAMINED Ur Epithelial Cells (NONE,FEW) FEW Urine Bacteria (NEG/NONE) MANY H Urine Hemoglobin (NEG) TRACE-INTACT Urine Glucose (N MG/DL) NEG 12/16 Chemistry Sodium (137 - 145 mmol/L) 140 Potassium (3.5 - 5.1 mmol/L) 4.8 Chloride (98 - 107 mmol/L) 99 Carbon Dioxide (22 - 30 mmol/L) 26 Anion Gap (5 - 16) 15 BUN (7 - 17 mg/dL) 45 H Creatinine (0.5 - 1.0 mg/dL) 1.9 H Estimated GFR (>60 ml/min) 25 L BUN/Creatinine Ratio (7 - 25 %) 23.7 Glucose (65 - 99 mg/dL) 178 H Calcium (8.4 - 10.2 mg/dL) 9.5 Total Bilirubin (0.2 - 1.3 mg/dL) 0.8 AST (14 - 36 U/L) 23 ALT (9 - 52 U/L) 34 Alkaline Phosphatase (<127 U/L) 62 Troponin I (< 0.11 ng/ml) 0.12 *H Total Protein (6.3 - 8.2 g/dL) 7.3 Albumin (3.5 - 5.0 g/dL) 4.2 Globulin (1.9 - 4.2 gm/dL) 3.1 Albumin/Globulin Ratio (1.1 - 2.2 %) 1.4 Coagulation PT (9.4 - 12.5 SEC) 13.0 H INR (0.90 - 1.19) 1.19 APTT (25 - 37 SEC) 28 Hematology CBC w Diff NO MAN DIFF REQ WBC (4.8 - 10.8 /CUMM) 9.4 RBC (4.20 - 5.40 /CUMM) 4.18 L Hgb (12.0 - 16.0 G/DL) 12.7 Hct (37 - 47 %) 37.7 MCV (81.0 - 99.0 FL) 90.2 MCH (27.0 - 31.0 PG) 30.4 MCHC (33.0 - 37.0 G/DL) 33.7 RDW (11.5 - 14.5 %) 13.1 Plt Count (130 - 400 /CUMM) 175 MPV (7.4 - 10.4 FL) 8.7 Gran % (42.2 - 75.2 %) 83.8 H Lymphocytes % (20.5 - 51.1 %) 8.9 L Monocytes % (1.7 - 9.3 %) 6.2 Eosinophils % (0 - 5 %) 1.0 Basophils % (0.0 - 2.0 %) 0.1 Absolute Granulocytes (1.4 - 6.5 /CUMM) 7.9 H Absolute Lymphocytes (1.2 - 3.4 /CUMM) 0.8 L Absolute Monocytes (0.10 - 0.60 /CUMM) 0.6 Absolute Eosinophils (0.0 - 0.7 /CUMM) 0.1 Absolute Basophils (0.0 - 0.2 /CUMM) 0 Urines Ur Random Creatinine (mg/dL) 59.9 Ur Random Sodium (30 - 90 mmol/L) 75 Ur Random Potassium (mmol/L) 45.0 Fraction Sodium Excret (<1% %) 1.6 H Imaging/Other Studies: TTE 2016 reviewed Chest x-ray reviewed Assessment/Plan Assessment/Recommendations Assessment: Stage III CKD - Pt slightly above her baseline which has been approx 1.2-1.6. 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 Can screen for nonalbumin protein as well. OTILIO on CKD - ?2/2 pre-renal azotemia in the setting of taking diuretics while having poor PO intake. Perhaps some mild ATN compounded by relative hypotension while on RAAS inhibition. Has a guerrero catheter but should get renal imaging to rule out high grade urinary obstruction. No systemic s/s of sepsis (nor is there any leuk esterase to suggest a true urinary tract infection). CHF - Records in [facility] with Dr. Vera reviewed. Given cardiac disease, volume status appears relatively euvolemic (after reviewing chest x-ray). Recommendations: -Cont to hold lasix and losartan -Would check UProt, UCr - if >1g, would check SPEP, UPEP, KLFLC -Check CK level -Renal US -f/u UCx - ?colonization Please call [phone] with ?'s
[2017-12-17 11:49] VITALS: BP 110/60
--- NOTE | 2017-12-17 12:42 | Cons- Cardiology ---
General Information and HPI Consulting Request Date of Consult: 12/17/17 Requested By: Venkat Calix MD Reason for Consult: Weakness, elevated troponin isoenzymes Source of Information: patient, old records Exam Limitations: no limitations History of Present Illness: The patient is an 87-year-old woman with a past medical history of coronary artery disease (non-ST segment elevation myocardial infarction in 2010, status post bare metal stent to the LAD), mitral regurgitation, and ischemic, dilated cardiomyopathy (LVEF 35%), hyperlipidemia and chronic congestive heart failure secondary to systolic dysfunction she has well has a known [employer]tr[employer] pacemaker implant. She presented to our hospital with symptoms of weakness, difficulty ambulating and headache. The patient states having a sensation of pressure in the upper portion of her neck and head. Symptoms were waxing and waning throughout the day, and had no clear association with physical activity. She had a sudden onset of lower extremity weakness when attempting to ambulate following dinner however without symptoms of vertigo or other palpitations. The patient otherwise denied symptoms of chest pain nor pressure while at rest or with physical activity. She describes performing a proximally 4 METs of physical activity on a regular basis without difficulty. An initial head CT demonstrated no acute events. She subsequently however was demonstrated to have a UTI, and troponin isoenzymes were overall positive, albeit with low levels and an overall plateau fashion. An initial EKG demonstrated no acute changes. Allergies/Medications Allergies: Coded Allergies: No Known Allergies (12/16/17) Home Med List: Carvedilol 6.25 MG TABLET 1 TAB PO BID HEART (Reported) Clopidogrel Bisulfate (Clopidogrel) 75 MG TABLET 1 TAB PO DAILY HEART ( Reported) Furosemide 40 MG TABLET 1 TAB PO DAILY HEART (Reported) Linagliptin (Tradjenta) 5 MG TABLET 1 TAB PO DAILY DIABETES (Reported) Losartan Potassium 100 MG TABLET 1 TAB PO DAILY HEART (Reported) Potassium Chloride 10 MEQ TAB.ER.PRT 1 TAB PO DAILY HEART (Reported) Rosuvastatin Calcium (Crestor) 40 MG TABLET 1 TAB PO DAILY HEART (Reported) Current Medications: Current Medications Sig/Lucia Start time Last Medication Dose Route Stop Time Status Admin Acetaminophen 650 MG Q8P PRN 12/16 2345 AC PO Acetaminophen 0 .STK-MED ONE 12/16 2133 DC PO Acetaminophen 650 MG ONCE ONE 12/16 2129 DC 12/16 PO 03/04 2131 2133 Aspirin 81 MG DAILY 12/17 1000 AC 12/17 PO 1151 Aspirin 0 .STK-MED ONE 12/16 2200 DC PO Aspirin 325 MG ONCE ONE 12/16 2144 DC 12/16 PO 12/16 2145 215 Atorvastatin Calcium 80 MG 1700 12/17 1700 AC PO Carvedilol 6.25 MG BID 12/17 1000 AC 12/17 PO 1151 Ceftriaxone Sodium 1,000 MG 2300 12/17 2300 AC IV Ceftriaxone Sodium 1,000 MG ONCE ONE 12/16 2315 DC 12/17 IV 12/16 2316 0310 Clopidogrel Bisulfate 75 MG DAILY 12/17 1000 AC 12/17 PO 1151 Famotidine 20 MG DAILY 12/17 1000 AC 12/17 PO 1151 Heparin Sodium 5,000 UNIT Q8 12/17 06 AC 12/17 (Porcine) SC 0559 Insulin Aspart 0 TIDAC 12/17 0800 AC SC Morphine Sulfate 2 MG Q8P PRN 12/17 0430 DC IV Senna/Docusate Sodium 1 TAB AT BEDTIME 12/17 2199 AC PO Sodium Chloride 1,000 ML Q6H 12/16 2044 DC 12/17 IV 12/17 0244 0312 Tramadol HCl 50 MG Q8P PRN 12/17 0430 AC PO Review of Systems Review of Systems: The review of systems is negative for chest pains, palpitations nor lightheadedness. The remainder of the 14 point review of systems is noncontributory with the exception of above. Past History Travel History Traveled to [place] past 21 day No Medical History Neurological: NONE EENT: NONE Cardiovascular: CAD, hypertension, hyperlipidemia, mitral regurgitation Respiratory: NONE Gastrointestinal: NONE Hepatic: NONE Renal: NONE Musculoskeletal: NONE Psychiatric: NONE Endocrine: diabetes Blood Disorders: NONE Surgical History Surgical History: PACEMAKER Psychosocial History Smoking Status: Never Smoked ETOH Use: denies use Illicit Drug Use: denies illicit drug use Exam & Diagnostic Data Vital Signs and I&O Vital Signs Date Time Temp Pulse Resp B/P B/P Pulse O2 O2 Flow FiO2 Mean Ox Delivery Rate 12/17 1151 61 110/60 12/17 1149 61 110/60 12/17 0641 97.8 65 20 104/58 98 Room Air 12/17 0001 Room Air 12/17 0001 98.2 66 18 104/56 96 Room Air 12/166 98.0 71 18 118/64 98 Room Air 12/161 62 113/60 12/16 2021 97 Room Air 12/16 2010 98.1 62 18 119/56 97 Room Air Intake & Output 12/17 0812/17 0000 12/16 0812/16 0000 Intake Total 1120 300 Output Total 500 100 Balance 620 200 Intake, IV 1000 300 Intake, Oral 120 Output, Urine 500 100 Patient 165 lb Weight Weight Bed scale Measurement Method Physical Exam: General: Nontoxic, no apparent distress. HEENT: Sclera and conjunctiva within normal limits, without xanthelasmas. Neck: Carotids 2+ without bruits. Respiratory: Scattered rhonchi, air movement is good, without accessory respiratory muscle use. Heart: Regular rate and rhythm, 2/6 systolic ejection murmur at left sternal border, without JVD. Abdomen: Soft, nontender, no masses, normoactive bowel sounds. Extremities: Without clubbing, cyanosis, without edema. Neuro: Nonfocal exam, strength, 5 out of 5 Skin: Within normal limits without lesions. Psych: Mood and affect: Normal Labs/Jose Juan Results: Laboratory Tests 12/17 12/17 12/17 1100 0400 0400 Chemistry Sodium (137 - 145 mmol/L) 139 Potassium (3.5 - 5.1 mmol/L) 4.2 Chloride (98 - 107 mmol/L) 105 Carbon Dioxide (22 - 30 mmol/L) 22 Anion Gap (5 - 16) 12 BUN (7 - 17 mg/dL) 43 H Creatinine (0.5 - 1.0 mg/dL) 1.7 H Estimated GFR (>60 ml/min) 28 L BUN/Creatinine Ratio (7 - 25 %) 25.3 H Troponin I (< 0.11 ng/ml) 0.15 *H 0.16 *H Triglycerides (<150 mg/dL) 48 Cholesterol (<200 MG/DL) 83 LDL Cholesterol, Calc (65 - 129 mg/dL) 22 L HDL Cholesterol (40 - 60 mg/dL) 52 Cholesterol/HDL Ratio (0.00 - 4.23 %) 2 Hematology CBC w Diff NO MAN DIFF REQ WBC (4.8 - 10.8 /CUMM) 8.2 RBC (4.20 - 5.40 /CUMM) 3.49 L Hgb (12.0 - 16.0 G/DL) 10.7 L Hct (37 - 47 %) 31.5 L MCV (81.0 - 99.0 FL) 90.2 MCH (27.0 - 31.0 PG) 30.5 MCHC (33.0 - 37.0 G/DL) 33.8 RDW (11.5 - 14.5 %) 13.0 Plt Count (130 - 400 /CUMM) 149 MPV (7.4 - 10.4 FL) 9.1 Gran % (42.2 - 75.2 %) 71.0 Lymphocytes % (20.5 - 51.1 %) 17.6 L Monocytes % (1.7 - 9.3 %) 10.1 H Eosinophils % (0 - 5 %) 1.1 Basophils % (0.0 - 2.0 %) 0.2 Absolute Granulocytes (1.4 - 6.5 /CUMM) 5.8 Absolute Lymphocytes (1.2 - 3.4 /CUMM) 1.4 Absolute Monocytes (0.10 - 0.60 /CUMM) 0.8 H Absolute Eosinophils (0.0 - 0.7 /CUMM) 0.1 Absolute Basophils (0.0 - 0.2 /CUMM) 0 12/164 3 Chemistry Lactic Acid Cancelled Urines Urinalysis LIGHT H Urine Color (YEL,AMB,STR) YEL Urine Clarity (CLEAR) HAZY H Urine pH (5.0 - 8.0) 6.0 Ur Specific [place] (1.001 - 1.035) 1.015 Urine Protein (NEG,<30 MG/DL) TRACE H Urine Ketones (NEG) NEG Urine Nitrite (NEG) POS H Urine Bilirubin (NEG) NEG Urine Urobilinogen (0.1 - 1.0 EU/dl) 0.2 Ur Leukocyte Esterase (NEG) NEG Ur Microscopic SEDIMENT EXAMINED Ur Epithelial Cells (NONE,FEW) FEW Urine Bacteria (NEG/NONE) MANY H Urine Hemoglobin (NEG) TRACE-INTACT Urine Glucose (N MG/DL) NEG 12/16 Chemistry Sodium (137 - 145 mmol/L) 140 Potassium (3.5 - 5.1 mmol/L) 4.8 Chloride (98 - 107 mmol/L) 99 Carbon Dioxide (22 - 30 mmol/L) 26 Anion Gap (5 - 16) 15 BUN (7 - 17 mg/dL) 45 H Creatinine (0.5 - 1.0 mg/dL) 1.9 H Estimated GFR (>60 ml/min) 25 L BUN/Creatinine Ratio (7 - 25 %) 23.7 Glucose (65 - 99 mg/dL) 178 H Calcium (8.4 - 10.2 mg/dL) 9.5 Total Bilirubin (0.2 - 1.3 mg/dL) 0.8 AST (14 - 36 U/L) 23 ALT (9 - 52 U/L) 34 Alkaline Phosphatase (<127 U/L) 62 Creatine Kinase (30 - 135 U/L) Pending Troponin I (< 0.11 ng/ml) 0.12 *H Total Protein (6.3 - 8.2 g/dL) 7.3 Albumin (3.5 - 5.0 g/dL) 4.2 Globulin (1.9 - 4.2 gm/dL) 3.1 Albumin/Globulin Ratio (1.1 - 2.2 %) 1.4 Coagulation PT (9.4 - 12.5 SEC) 13.0 H INR (0.90 - 1.19) 1.19 APTT (25 - 37 SEC) 28 Hematology CBC w Diff NO MAN DIFF REQ WBC (4.8 - 10.8 /CUMM) 9.4 RBC (4.20 - 5.40 /CUMM) 4.18 L Hgb (12.0 - 16.0 G/DL) 12.7 Hct (37 - 47 %) 37.7 MCV (81.0 - 99.0 FL) 90.2 MCH (27.0 - 31.0 PG) 30.4 MCHC (33.0 - 37.0 G/DL) 33.7 RDW (11.5 - 14.5 %) 13.1 Plt Count (130 - 400 /CUMM) 175 MPV (7.4 - 10.4 FL) 8.7 Gran % (42.2 - 75.2 %) 83.8 H Lymphocytes % (20.5 - 51.1 %) 8.9 L Monocytes % (1.7 - 9.3 %) 6.2 Eosinophils % (0 - 5 %) 1.0 Basophils % (0.0 - 2.0 %) 0.1 Absolute Granulocytes (1.4 - 6.5 /CUMM) 7.9 H Absolute Lymphocytes (1.2 - 3.4 /CUMM) 0.8 L Absolute Monocytes (0.10 - 0.60 /CUMM) 0.6 Absolute Eosinophils (0.0 - 0.7 /CUMM) 0.1 Absolute Basophils (0.0 - 0.2 /CUMM) 0 Urines Ur Random Creatinine (mg/dL) 59.9 Ur Random Sodium (30 - 90 mmol/L) 75 Ur Random Potassium (mmol/L) 45.0 Fraction Sodium Excret (<1% %) 1.6 H Assessment/Plan Assessment/Plan 87-year-old woman with a past medical history of coronary artery disease (non-ST segment elevation myocardial infarction in 2010, status post bare metal stent to the LAD), mitral regurgitation, and ischemic, dilated cardiomyopathy (LVEF 35%), hyperlipidemia and chronic congestive heart failure secondary to systolic dysfunction she has well has a known [employer]tr[employer] pacemaker implant. She presented to our hospital with symptoms of weakness, difficulty ambulating and headache. She subsequently noted to have a UTI as well as elevated troponin isoenzymes. Elevated troponin isoenzymes: The patient presents with minimal enzyme elevation and a plateau fashion. This is not consistent with an acute coronary syndrome; rather, likely exacerbated by her underlying renal dysfunction. We will continue an overall conservative approach to management. Aspirin and carvedilol will be continued. We will consider evaluating an underlying burden of ischemia as an outpatient. Acute UTI: Continue treatment as per the medical team Acute on chronic kidney disease: Appreciated nephrology input. We will continue to follow and hold diuretics as well as losartan. Lower extremity weakness: The patient will continue on dual antiplatelet therapy at this point. Pacemaker checks do not demonstrate small atrial fibrillation. Neurology input will be appreciated. Thank you for allowing us to participate in the care of your patient. Please do not hesitate to contact us further with any questions. Sincerely, Kodi Singh MD [facility] Consult Acknowledgment - Thank you for your consult request.
--- NOTE | 2017-12-17 13:44 | Cons- General Surgery ---
General Information and HPI Consulting Request Date of Consult: 12/17/17 Requested By: Venkat Calix MD Reason for Consult: perineal abscess History of Present Illness: Patient admitted to hospital for unrelated issue. Noted to have pain and drainage in perineum over the past three weeks. Allergies/Medications Allergies: Coded Allergies: No Known Allergies (12/16/17) Home Med List: Carvedilol 6.25 MG TABLET 1 TAB PO BID HEART (Reported) Clopidogrel Bisulfate (Clopidogrel) 75 MG TABLET 1 TAB PO DAILY HEART ( Reported) Furosemide 40 MG TABLET 1 TAB PO DAILY HEART (Reported) Linagliptin (Tradjenta) 5 MG TABLET 1 TAB PO DAILY DIABETES (Reported) Losartan Potassium 100 MG TABLET 1 TAB PO DAILY HEART (Reported) Potassium Chloride 10 MEQ TAB.ER.PRT 1 TAB PO DAILY HEART (Reported) Rosuvastatin Calcium (Crestor) 40 MG TABLET 1 TAB PO DAILY HEART (Reported) Current Medications: Current Medications Sig/Lucia Start time Last Medication Dose Route Stop Time Status Admin Acetaminophen 650 MG Q8P PRN 12/16 2345 AC PO Acetaminophen 0 .STK-MED ONE 12/164 DC PO Acetaminophen 650 MG ONCE ONE 12/16 2130 DC 12/16 PO 12/16 2131 2133 Aspirin 81 MG DAILY 12/17 1000 AC 12/17 PO 1151 Aspirin 0 .STK-MED ONE 12/16 2201 DC PO Aspirin 325 MG ONCE ONE 12/16 2145 DC 12/16 PO 12/16 2146 2158 Atorvastatin Calcium 80 MG 1700 12/17 1700 AC PO Carvedilol 6.25 MG BID 12/17 1000 AC 12/17 PO 1151 Ceftriaxone Sodium 1,000 MG 2300 12/17 2300 AC IV Ceftriaxone Sodium 1,000 MG ONCE ONE 12/16 2315 DC 12/17 IV 12/16 2316 0310 Clopidogrel Bisulfate 75 MG DAILY 12/17 1000 AC 12/17 PO 1151 Famotidine 20 MG DAILY 12/17 1000 AC 12/17 PO 1151 Heparin Sodium 5,000 UNIT Q8 12/17 0600 AC 12/17 (Porcine) SC 1332 Insulin Aspart 0 TIDAC 12/17 0800 AC SC Morphine Sulfate 2 MG Q8P PRN 12/17 0430 DC IV Senna/Docusate Sodium 1 TAB AT BEDTIME 12/17 2200 AC PO Sodium Chloride 1,000 ML Q6H 12/16 2044 DC 12/17 IV 12/17 0244 0312 Tramadol HCl 50 MG Q8P PRN 12/17 0430 AC PO Past History Medical History Neurological: NONE EENT: NONE Cardiovascular: CAD, hypertension, hyperlipidemia, mitral regurgitation Respiratory: NONE Gastrointestinal: NONE Hepatic: NONE Renal: NONE Musculoskeletal: NONE Psychiatric: NONE Endocrine: diabetes Blood Disorders: NONE Surgical History Pertinent Surgical History: hysterectomy, PACEMAKER Psychosocial History Smoking Status: Never Smoked ETOH Use: denies use Illicit Drug Use: denies illicit drug use Review of Systems Review of Systems: perineal pain. no dysuria, no change in bowel funciton. +LE weakness. remainder 6 points neg Exam & Diagnostic Data Vital Signs and I&O Vital Signs Date Time Temp Pulse Resp B/P B/P Pulse O2 O2 Flow FiO2 Mean Ox Delivery Rate 12/17 1151 61 110/60 12/17 1149 61 110/60 12/17 0641 97.8 65 20 104/58 98 Room Air 12/17 0001 Room Air 12/17 0001 98.2 66 18 104/56 96 Room Air 12/16 2225 98.0 71 18 118/64 98 Room Air 12/16 2131 62 113/60 12/16 2021 97 Room Air 12/16 2010 98.1 62 18 119/56 97 Room Air Intake & Output 12/17 1600 12/17 0800 12/17 0000 12/16 1600 12/16 0800 12/16 0000 Intake Total 1120 300 Output Total 500 100 Balance 620 200 Intake, IV 1000 300 Intake, Oral 120 Output, Urine 500 100 Patient 165 lb Weight Weight Bed scale Measurement Method Physical Exam: gen; looks age. temporal wasting. nad. abd; soft, nt, nd vulva with scant drainage. open area deep crease right side without active drainage. Last 24 Hours of Labs: Laboratory Tests 12/17 12/17 12/17 1100 0400 0400 Chemistry Sodium (137 - 145 mmol/L) 139 Potassium (3.5 - 5.1 mmol/L) 4.2 Chloride (98 - 107 mmol/L) 105 Carbon Dioxide (22 - 30 mmol/L) 22 Anion Gap (5 - 16) 12 BUN (7 - 17 mg/dL) 43 H Creatinine (0.5 - 1.0 mg/dL) 1.7 H Estimated GFR (>60 ml/min) 28 L BUN/Creatinine Ratio (7 - 25 %) 25.3 H Iron (37 - 170 ug/dL) 34 L TIBC (265 - 497 ug/dL) 242 L Ferritin (11.1 - 264 ng/mL) Pending Troponin I (< 0.11 ng/ml) 0.15 *H 0.16 *H Triglycerides (<150 mg/dL) 48 Cholesterol (<200 MG/DL) 83 LDL Cholesterol, Calc (65 - 129 mg/dL) 22 L HDL Cholesterol (40 - 60 mg/dL) 52 Cholesterol/HDL Ratio (0.00 - 4.23 %) 2 Hematology CBC w Diff NO MAN DIFF REQ WBC (4.8 - 10.8 /CUMM) 8.2 RBC (4.20 - 5.40 /CUMM) 3.49 L Hgb (12.0 - 16.0 G/DL) 10.7 L Hct (37 - 47 %) 31.5 L MCV (81.0 - 99.0 FL) 90.2 MCH (27.0 - 31.0 PG) 30.5 MCHC (33.0 - 37.0 G/DL) 33.8 RDW (11.5 - 14.5 %) 13.0 Plt Count (130 - 400 /CUMM) 149 MPV (7.4 - 10.4 FL) 9.1 Gran % (42.2 - 75.2 %) 71.0 Lymphocytes % (20.5 - 51.1 %) 17.6 L Monocytes % (1.7 - 9.3 %) 10.1 H Eosinophils % (0 - 5 %) 1.1 Basophils % (0.0 - 2.0 %) 0.2 Absolute Granulocytes (1.4 - 6.5 /CUMM) 5.8 Absolute Lymphocytes (1.2 - 3.4 /CUMM) 1.4 Absolute Monocytes (0.10 - 0.60 /CUMM) 0.8 H Absolute Eosinophils (0.0 - 0.7 /CUMM) 0.1 Absolute Basophils (0.0 - 0.2 /CUMM) 0 /12/16 4648 2223 Chemistry Lactic Acid Cancelled Urines Urinalysis LIGHT H Urine Color (YEL,AMB,STR) YEL Urine Clarity (CLEAR) HAZY H Urine pH (5.0 - 8.0) 6.0 Ur Specific [place] (1.001 - 1.035) 1.015 Urine Protein (NEG,<30 MG/DL) TRACE H Urine Ketones (NEG) NEG Urine Nitrite (NEG) POS H Urine Bilirubin (NEG) NEG Urine Urobilinogen (0.1 - 1.0 EU/dl) 0.2 Ur Leukocyte Esterase (NEG) NEG Ur Microscopic SEDIMENT EXAMINED Ur Epithelial Cells (NONE,FEW) FEW Urine Bacteria (NEG/NONE) MANY H Urine Hemoglobin (NEG) TRACE-INTACT Urine Glucose (N MG/DL) NEG 12/16 Chemistry Sodium (137 - 145 mmol/L) 140 Potassium (3.5 - 5.1 mmol/L) 4.8 Chloride (98 - 107 mmol/L) 99 Carbon Dioxide (22 - 30 mmol/L) 26 Anion Gap (5 - 16) 15 BUN (7 - 17 mg/dL) 45 H Creatinine (0.5 - 1.0 mg/dL) 1.9 H Estimated GFR (>60 ml/min) 25 L BUN/Creatinine Ratio (7 - 25 %) 23.7 Glucose (65 - 99 mg/dL) 178 H Calcium (8.4 - 10.2 mg/dL) 9.5 Total Bilirubin (0.2 - 1.3 mg/dL) 0.8 AST (14 - 36 U/L) 23 ALT (9 - 52 U/L) 34 Alkaline Phosphatase (<127 U/L) 62 Creatine Kinase (30 - 135 U/L) Pending Troponin I (< 0.11 ng/ml) 0.12 *H Total Protein (6.3 - 8.2 g/dL) 7.3 Albumin (3.5 - 5.0 g/dL) 4.2 Globulin (1.9 - 4.2 gm/dL) 3.1 Albumin/Globulin Ratio (1.1 - 2.2 %) 1.4 Coagulation PT (9.4 - 12.5 SEC) 13.0 H INR (0.90 - 1.19) 1.19 APTT (25 - 37 SEC) 28 Hematology CBC w Diff NO MAN DIFF REQ WBC (4.8 - 10.8 /CUMM) 9.4 RBC (4.20 - 5.40 /CUMM) 4.18 L Hgb (12.0 - 16.0 G/DL) 12.7 Hct (37 - 47 %) 37.7 MCV (81.0 - 99.0 FL) 90.2 MCH (27.0 - 31.0 PG) 30.4 MCHC (33.0 - 37.0 G/DL) 33.7 RDW (11.5 - 14.5 %) 13.1 Plt Count (130 - 400 /CUMM) 175 MPV (7.4 - 10.4 FL) 8.7 Gran % (42.2 - 75.2 %) 83.8 H Lymphocytes % (20.5 - 51.1 %) 8.9 L Monocytes % (1.7 - 9.3 %) 6.2 Eosinophils % (0 - 5 %) 1.0 Basophils % (0.0 - 2.0 %) 0.1 Absolute Granulocytes (1.4 - 6.5 /CUMM) 7.9 H Absolute Lymphocytes (1.2 - 3.4 /CUMM) 0.8 L Absolute Monocytes (0.10 - 0.60 /CUMM) 0.6 Absolute Eosinophils (0.0 - 0.7 /CUMM) 0.1 Absolute Basophils (0.0 - 0.2 /CUMM) 0 Urines Ur Random Creatinine (mg/dL) 59.9 Ur Random Sodium (30 - 90 mmol/L) 75 Ur Random Potassium (mmol/L) 45.0 Fraction Sodium Excret (<1% %) 1.6 H Assessment/Plan Assessment/Plan folliculitis with abscess. it is draining spontaneously now. No need for incision and drainage. Recommend warm compresses and abx. Patient currently on Cefriaxone. Keflex will suffice. Consult Acknowledgment - Thank you for your consult request.
[2017-12-17 14:10] VITALS: BP 92/46
--- NOTE | 2017-12-17 14:54 | Patient Discharge Instructions ---
Discharge Instructions General Discharge Information You were seen/treated for: Leg weakness, urinary tract infection Watch for these problems: Lightheadedness, fainting, chest discomfort, fevers or chills Special Instructions: 1. Follow up with your primary care provider within 1 week of discharge. 2. Follow up with your hay rake operator, Dr. Guevara within 1 week of discharge. 3. Follow up with your english language learner tutor, Dr. Singh within 1 week of discharge. 4. Follow up with your neurologist, Dr. Napier within 1 week of discharge 5. Complete 5 more days of antibiotics for your urinary tract infection 6. Apply warm compress to your right groin abscess/boil daily Diet Continue normal diet: No Recommended Diet: Heart Healthy Activity Full Activity/No Limits: No Activity Self Limited: Yes Acute Coronary Syndrome Inclusion Criteria At DC or during hospital stay patient has or had the following: ACS DIAGNOSIS No Discharge Core Measures Meds if any: Prescribed or Continued at Discharge Meds if any: NOT Prescribed or Continued at Discharge Congestive Heart Failure Inclusion Criteria At DC or during hospital stay patient has or had the following: CHF DIAGNOSIS No Discharge Core Measures Meds if any: Prescribed or Continued at Discharge Meds if any: NOT Prescribed or Continued at Discharge Cerebrovascular accident Inclusion Criteria At DC or during hospital stay patient has or had the following: CVA/TIA Diagnosis No Discharge Core Measures Meds if any: Prescribed or Continued at Discharge Antithrombotic Yes Statin (required if LDL =>70) Yes Anticoagulant No Meds if any: NOT Prescribed or Continued at Discharge Venous thromboembolism Inclusion Criteria VTE Diagnosis No VTE Type NONE VTE Confirmed by (Test) NONE Discharge Core Measures - Per Current guidelines, there needs to be overlap - treatment for the first 5 days of Warfarin therapy. - If discharged on Warfarin prior to 5 days of - overlap therapy, the patient will need to be - assessed for post discharge needs including - *Post discharge parental anticoagulation - *Warfarin and/or parental anticoagulation education - *Follow up date to check INR post discharge At least 5 days overlap therapy as Inpatient No Meds if any: Prescribed or Continued at Discharge Note: Overlap Therapy is Warfarin and Anticoagulant Meds if any: NOT Prescribed or Continued at Discharge
--- NOTE | 2017-12-17 16:18 | ULTRASOUND REPORT ---
EXAMINATION: US DUPLEX CAROTID AND VERTEBRAL CLINICAL INFORMATION: 87-year-old female with lower extremity weakness and possible CVA. COMPARISON: None TECHNIQUE: Real-time ultrasound and Doppler techniques (integrating B-mode 2D vascular images, Doppler spectral analysis and color flow Doppler imaging) were utilized to interrogate the extracranial carotid and vertebral arteries bilaterally. The degree of stenosis determined by criteria similar to NASCET. FINDINGS: 1. On the right: Small amount of plaque is present at the carotid bifurcation but velocity measurements are normal and do not suggest a stenosis of greater than 50% diameter reduction in the right ICA. The vertebral artery is patent demonstrating antegrade flow. The common carotid artery velocity is 63 cm/s. The internal carotid artery velocities are 50 cm/s systolic and 11 cm/s diastolic. The external carotid artery velocity is 85 cm/s. 2. On the left: Small amount of plaque is present at the carotid bifurcation but velocity measurements are normal and do not suggest a stenosis of greater than 50% diameter reduction in the left ICA. The vertebral artery is patent demonstrating antegrade flow. The common carotid artery velocity is 66 cm/s. The internal carotid artery velocities are 74 cm/s systolic and 18 cm/s diastolic. The external carotid artery velocity is 94 cm/s. The external carotid arteries appear unremarkable. IMPRESSION: Plaque is present in the internal carotid arteries but velocity measurements are normal and there is no evidence to suggest a hemodynamically significant stenosis of greater than 50% diameter reduction.
[2017-12-17 16:43] LABS: ABSOLUTE BASOPHIL COUNT 0.1 /CUMM (0.0-0.2); ABSOLUTE EOSINOPHIL COUNT 0.2 /CUMM (0.0-0.7); ABSOLUTE GRANULOCYTE CT 4.6 /CUMM (1.4-6.5); ABSOLUTE LYMPH COUNT 1.1 /CUMM (1.2-3.4); ABSOLUTE MONOCYTE COUNT 0.6 /CUMM (0.10-0.60); BASOPHIL % 0.8 % (0.0-2.0); GRANULOCYTE % 70.9 % (42.2-75.2); HEMATOCRIT 31.5 % (37-47); MEAN CORPUSCULAR HGB 30.9 PG (27.0-31.0); MEAN CORPUSCULAR HGB CONC 34.4 G/DL (33.0-37.0); MEAN CORPUSCULAR VOLUME 89.8 FL (81.0-99.0); MEAN PLATELET VOLUME 8.9 FL (7.4-10.4); PLATELET COUNT 149 /CUMM (130-400); RBC DISTRIBUTION WIDTH 13.2 % (11.5-14.5); RED BLOOD CELL CT 3.52 /CUMM (4.20-5.40); WHITE BLOOD CELL COUNT 6.5 /CUMM (4.8-10.8)
--- NOTE | 2017-12-17 16:49 | ULTRASOUND REPORT ---
EXAMINATION: US RETROPERITONEAL COMPLETE (RENAL) CLINICAL INFORMATION: Acute kidney injury on chronic kidney disease. Assess for ureteral obstruction or hydronephrosis. COMPARISON: None TECHNIQUE: Real-time imaging of the kidneys and bladder. FINDINGS: RIGHT KIDNEY: 9.2 x 4.5 x 4.5 cm (SAG x AP x TRV). The kidney is normal in size, contour, and echogenicity. Renal cortical thickness is normal. No calculi or focal parenchymal lesions. No hydronephrosis. LEFT KIDNEY: 9.7 x 4.8 x 4.3 cm (SAG x AP x TRV). The kidney is normal in size, contour, and echogenicity. Renal cortical thickness is normal. No calculi or focal parenchymal lesions. No hydronephrosis. BLADDER: Completely decompressed by a Desouza catheter and not visualized. IMPRESSION: 1. Kidneys bilaterally are unremarkable with no evidence of hydronephrosis, nephrolithiasis or focal renal lesion seen. 2. Bladder completely decompressed by a Desouza catheter and not visualized.
--- NOTE | 2017-12-17 17:09 | Cons- Neurology ---
General Information and HPI Consulting Request Date of Consult: 12/17/17 Requested By: Venkat Calix MD Reason for Consult: Bilateral leg weakness Source of Information: patient Exam Limitations: no limitations History of Present Illness: 87 year old right handed woman who at baseline admits to bilateral leg issues ( walks with walker), who the other day tried to get out of a chair and struggled. Family members helped her up but as she was getting up she felt that her legs "were not there" and that they were very weak. In fact she felt achy throughout her body and weak. She was therefore helped to sitting and brought to the hospital. In the hospital she had mildly elevated troponins that Dr. Singh had felt were related to poor clearance, and a flaring UTI for which she got Ceftriaxone. She denies ever having a stroke but has had an UT before. On exam she has trouble raising her right arm as it is "stiff" and she attributes it to a rotator cuff issues. Denies significant neck pain at any point. Point to the fact that she had right knee surgery that failed and that her right ankle is twisted. Also, has had sciatic pain in her left leg that bothers her even when she is supine. Allergies/Medications Allergies: Coded Allergies: No Known Allergies (12/16/17) Home Med List: Carvedilol 6.25 MG TABLET 1 TAB PO BID HEART (Reported) Clopidogrel Bisulfate (Clopidogrel) 75 MG TABLET 1 TAB PO DAILY HEART ( Reported) Furosemide 40 MG TABLET 1 TAB PO DAILY HEART (Reported) Linagliptin (Tradjenta) 5 MG TABLET 1 TAB PO DAILY DIABETES (Reported) Losartan Potassium 100 MG TABLET 1 TAB PO DAILY HEART (Reported) Potassium Chloride 10 MEQ TAB.ER.PRT 1 TAB PO DAILY HEART (Reported) Rosuvastatin Calcium (Crestor) 40 MG TABLET 1 TAB PO DAILY HEART (Reported) Current Medications: Current Medications Sig/Lucia Start time Last Medication Dose Route Stop Time Status Admin Acetaminophen 650 MG Q8P PRN 12/16 2345 AC PO Acetaminophen 0 .STK-MED ONE 12/164 DC PO Acetaminophen 650 MG ONCE ONE 12/16 2129 DC 12/16 PO 12/16 2130 213 Aspirin 81 MG DAILY 12/17 1000 AC 12/17 PO 1151 Aspirin 0 .STK-MED ONE 12/161 DC PO Aspirin 325 MG ONCE ONE 12/16 2144 DC 12/16 PO 12/16 2146 2158 Atorvastatin Calcium 80 MG 1700 12/17 1700 AC PO Carvedilol 6.25 MG BID 12/17 1000 AC 12/17 PO 1151 Ceftriaxone Sodium 1,000 MG 2300 12/17 2300 AC IV Ceftriaxone Sodium 1,000 MG ONCE ONE 12/16 2315 DC 12/17 IV 12/16 2316 0310 Clopidogrel Bisulfate 75 MG DAILY 12/17 1000 AC 12/17 PO 1151 Famotidine 20 MG DAILY 12/17 1000 AC 12/17 PO 1151 Heparin Sodium 5,000 UNIT Q8 12/17 0600 AC 12/17 (Porcine) SC 1332 Insulin Aspart 0 TIDAC 12/17 0800 AC SC Morphine Sulfate 2 MG Q8P PRN 12/17 0430 DC IV Patient Medication 1 ED ONE ONE 12/17 1415 DC Teaching ED 12/17 1416 Senna/Docusate Sodium 1 TAB AT BEDTIME 12/17 2200 AC PO Sodium Chloride 1,000 ML Q6H 12/16 2045 DC 12/17 IV 12/17 0244 0312 Tramadol HCl 50 MG Q8P PRN 12/17 0430 AC PO Review of Systems Review of Systems: As per HPI. Past History Travel History Traveled to [place] past 21 day No Medical History Neurological: NONE EENT: NONE Cardiovascular: CAD, hypertension, hyperlipidemia, mitral regurgitation Respiratory: NONE Gastrointestinal: NONE Hepatic: NONE Renal: NONE Musculoskeletal: NONE Psychiatric: NONE Endocrine: diabetes Blood Disorders: NONE Surgical History Surgical History: hysterectomy, PACEMAKER Psychosocial History Smoking Status: Never Smoked ETOH Use: denies use Illicit Drug Use: denies illicit drug use Exam & Diagnostic Data Vital Signs and I&O Vital Signs Date Time Temp Pulse Resp B/P B/P Pulse O2 O2 Flow FiO2 Mean Ox Delivery Rate 12/17 1410 98.0 61 20 92/46 91 Room Air 12/17 1151 61 110/60 12/17 1149 61 110/60 12/17 0641 97.8 65 20 104/58 98 Room Air 12/17 0001 Room Air 12/17 0001 98.2 66 18 104/56 96 Room Air 12/16 2225 98.0 71 18 118/64 98 Room Air 12/16 2130 62 113/60 12/16 2021 97 Room Air 12/16 2010 98.1 62 18 119/56 97 Room Air Intake & Output 12/17 1600 12/17 0800 12/17 0000 Intake Total 1120 300 Output Total 400 500 100 Balance -400 620 200 Intake, IV 1000 300 Intake, Oral 120 Output, Urine 400 500 100 Patient 165 lb Weight Weight Bed scale Measurement Method Physical Exam: Alert and oriented x 3 S1 and S2 normal, RRR EOMI, YADY, no nystagmus. Tongue midline. Uvula midline. V1-V3 normal. TPZ strong. VF - patchy field cut on the right side?? Strength exam- limited ROM in right arm, although when arm raised passively she can sustain it. No pain. Weak tap on right>left. HF +4/5, distal portions strong. Left TOE UP. FNF normal.Gait deferred. Last 48 Hours of Lab Results: Laboratory Tests 12/17 12/17 12/17 12/17 1614 1100 UNK 0400 Chemistry Iron (37 - 170 ug/dL) 34 L TIBC (265 - 497 ug/dL) 242 L Ferritin (11.1 - 264 ng/mL) 172.0 Troponin I (< 0.11 ng/ml) 0.15 *H 0.16 *H Triglycerides (<150 mg/dL) 48 Cholesterol (<200 MG/DL) 83 LDL Cholesterol, Calc (65 - 129 mg/dL) 22 L HDL Cholesterol (40 - 60 mg/dL) 52 Cholesterol/HDL Ratio (0.00 - 4.23 %) 2 Hematology CBC w Diff Pending WBC Pending RBC Pending Hgb Pending Hct Pending MCV Pending MCH Pending MCHC Pending RDW Pending Plt Count Pending MPV Pending Urines Urine Total Volume Cancelled Ur Total Protein 24 Hr Cancelled 12/17 12/16 0400 2314 Chemistry Sodium (137 - 145 mmol/L) 139 Potassium (3.5 - 5.1 mmol/L) 4.2 Chloride (98 - 107 mmol/L) 105 Carbon Dioxide (22 - 30 mmol/L) 22 Anion Gap (5 - 16) 12 BUN (7 - 17 mg/dL) 43 H Creatinine (0.5 - 1.0 mg/dL) 1.7 H Estimated GFR (>60 ml/min) 28 L BUN/Creatinine Ratio (7 - 25 %) 25.3 H Lactic Acid Cancelled Hematology CBC w Diff NO MAN DIFF REQ WBC (4.8 - 10.8 /CUMM) 8.2 RBC (4.20 - 5.40 /CUMM) 3.49 L Hgb (12.0 - 16.0 G/DL) 10.7 L Hct (37 - 47 %) 31.5 L MCV (81.0 - 99.0 FL) 90.2 MCH (27.0 - 31.0 PG) 30.5 MCHC (33.0 - 37.0 G/DL) 33.8 RDW (11.5 - 14.5 %) 13.0 Plt Count (130 - 400 /CUMM) 149 MPV (7.4 - 10.4 FL) 9.1 Gran % (42.2 - 75.2 %) 71.0 Lymphocytes % (20.5 - 51.1 %) 17.6 L Monocytes % (1.7 - 9.3 %) 10.1 H Eosinophils % (0 - 5 %) 1.1 Basophils % (0.0 - 2.0 %) 0.2 Absolute Granulocytes (1.4 - 6.5 /CUMM) 5.8 Absolute Lymphocytes (1.2 - 3.4 /CUMM) 1.4 Absolute Monocytes (0.10 - 0.60 /CUMM) 0.8 H Absolute Eosinophils (0.0 - 0.7 /CUMM) 0.1 Absolute Basophils (0.0 - 0.2 /CUMM) 0 03/04 /2222 Chemistry Sodium (137 - 145 mmol/L) 140 Potassium (3.5 - 5.1 mmol/L) 4.8 Chloride (98 - 107 mmol/L) 99 Carbon Dioxide (22 - 30 mmol/L) 26 Anion Gap (5 - 16) 15 BUN (7 - 17 mg/dL) 45 H Creatinine (0.5 - 1.0 mg/dL) 1.9 H Estimated GFR (>60 ml/min) 25 L BUN/Creatinine Ratio (7 - 25 %) 23.7 Glucose (65 - 99 mg/dL) 178 H Calcium (8.4 - 10.2 mg/dL) 9.5 Total Bilirubin (0.2 - 1.3 mg/dL) 0.8 AST (14 - 36 U/L) 23 ALT (9 - 52 U/L) 34 Alkaline Phosphatase (<127 U/L) 62 Creatine Kinase (30 - 135 U/L) 46 Troponin I (< 0.11 ng/ml) 0.12 *H Total Protein (6.3 - 8.2 g/dL) 7.3 Albumin (3.5 - 5.0 g/dL) 4.2 Globulin (1.9 - 4.2 gm/dL) 3.1 Albumin/Globulin Ratio (1.1 - 2.2 %) 1.4 Coagulation PT (9.4 - 12.5 SEC) 13.0 H INR (0.90 - 1.19) 1.19 APTT (25 - 37 SEC) 28 Hematology CBC w Diff NO MAN DIFF REQ WBC (4.8 - 10.8 /CUMM) 9.4 RBC (4.20 - 5.40 /CUMM) 4.18 L Hgb (12.0 - 16.0 G/DL) 12.7 Hct (37 - 47 %) 37.7 MCV (81.0 - 99.0 FL) 90.2 MCH (27.0 - 31.0 PG) 30.4 MCHC (33.0 - 37.0 G/DL) 33.7 RDW (11.5 - 14.5 %) 13.1 Plt Count (130 - 400 /CUMM) 175 MPV (7.4 - 10.4 FL) 8.7 Gran % (42.2 - 75.2 %) 83.8 H Lymphocytes % (20.5 - 51.1 %) 8.9 L Monocytes % (1.7 - 9.3 %) 6.2 Eosinophils % (0 - 5 %) 1.0 Basophils % (0.0 - 2.0 %) 0.1 Absolute Granulocytes (1.4 - 6.5 /CUMM) 7.9 H Absolute Lymphocytes (1.2 - 3.4 /CUMM) 0.8 L Absolute Monocytes (0.10 - 0.60 /CUMM) 0.6 Absolute Eosinophils (0.0 - 0.7 /CUMM) 0.1 Absolute Basophils (0.0 - 0.2 /CUMM) 0 Urines Urinalysis LIGHT H Urine Color (YEL,AMB,STR) YEL Urine Clarity (CLEAR) HAZY H Urine pH (5.0 - 8.0) 6.0 Ur Specific [place] (1.001 - 1.035) 1.015 Urine Protein (NEG,<30 MG/DL) TRACE H Urine Ketones (NEG) NEG Urine Nitrite (NEG) POS H Urine Bilirubin (NEG) NEG Urine Urobilinogen (0.1 - 1.0 EU/dl) 0.2 Ur Leukocyte Esterase (NEG) NEG Ur Microscopic SEDIMENT EXAMINED Ur Epithelial Cells (NONE,FEW) FEW Urine Bacteria (NEG/NONE) MANY H Urine Hemoglobin (NEG) TRACE-INTACT Urine Glucose (N MG/DL) NEG 12/17 2011 Urines Ur Random Creatinine (mg/dL) 59.9 Ur Random Sodium (30 - 90 mmol/L) 75 Ur Random Potassium (mmol/L) 45.0 Fraction Sodium Excret (<1% %) 1.6 H Imaging/Other Studies: FINDINGS: Head CT: No intracranial hemorrhage or territorial infarction. No extra-axial fluid collection. No mass effect or midline shift. There is periventricular and subcortical white matter hypoattenuation which is consistent with sequela of ischemic microangiopathy. Ventricles and sulcal spaces are proportionate without hydrocephalus. No subgaleal hematoma. No calvarial fracture. Mastoid air cells and paranasal sinuses are aerated. Cervical spine CT: No fracture or dislocation. There is chronic appearing grade 1 anterolisthesis of C7 on T1. No other spondylolisthesis. No prevertebral soft tissue swelling. No widening of the atlantoaxial interval. There is a crowned dens appearance. Multilevel degenerative endplate changes and disc space narrowing with anterior and posterior osteophyte formation. There is a degree of ossification along the anterior and posterior longitudinal ligaments. Multilevel facet arthropathy. There is mild multilevel canal stenosis. Partially visualized left pectoral cardiac device. IMPRESSION: 1. No acute intracranial pathology. Chronic changes as above. 2. No acute cervical spine pathology. At least moderate multilevel degenerative changes of the cervical spine, which have progressed since 2008. Assessment/Plan Assessment: This is an 87 year old woman who has chronic bilateral leg issues including sciatica on the left and orhtopedic issues on the right and that ambulates at baseline with walker. 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 There was no focality to it. Most likely this is all due to the UTI. However, she does have right arm weakness that is poorly accounted for and an upgoing toe on the left. Without an MRI , which she cannot have it would be very hard to tease out whether there are tiny posterior circulation strokes or whether her canal stenosis is impinging on her cord. Although, she is 87, and I feel that if she can return to baseline after treating the UTI and with some home PT, that this is all that should be done in this case. Recommendations: 1. C/w treat UTI. 2. PT/OT for leg strengthening and to reduce sciatic pain.(and arrange home PT) 3. Consider small doses of gabapentin for her nocturnal sciatic pain. Cannot have MRIs due to PPM. 4. C/w baby aspirin, plavix and blood pressure control with an ARB. 5. Consider holding Rosuvastatin if proximal leg weakness continues, Consult Acknowledgment - Thank you for your consult request.
[2017-12-17 20:00] VITALS: BP 96/62
[2017-12-17 22:00] VITALS: BP 112/60
[2017-12-18 07:01] VITALS: BP 112/72
[2017-12-18 07:53] LABS: ABSOLUTE BASOPHIL COUNT 0 /CUMM (0.0-0.2); ABSOLUTE EOSINOPHIL COUNT 0.2 /CUMM (0.0-0.7); ABSOLUTE GRANULOCYTE CT 5.1 /CUMM (1.4-6.5); BASOPHIL % 0.5 % (0.0-2.0); GRANULOCYTE % 69.1 % (42.2-75.2); HEMATOCRIT 30.8 % (37-47); MEAN CORPUSCULAR HGB 30.3 PG (27.0-31.0); MEAN CORPUSCULAR HGB CONC 33.8 G/DL (33.0-37.0); MEAN CORPUSCULAR VOLUME 89.9 FL (81.0-99.0); MEAN PLATELET VOLUME 9.1 FL (7.4-10.4); PLATELET COUNT 155 /CUMM (130-400); RBC DISTRIBUTION WIDTH 13.1 % (11.5-14.5); RED BLOOD CELL CT 3.42 /CUMM (4.20-5.40); WHITE BLOOD CELL COUNT 7.3 /CUMM (4.8-10.8)
--- NOTE | 2017-12-18 10:14 | ECHOCARDIOGRAM REPORT ---
EROS MCGOWAN Age: 87 : 1930 Gender: F Exam Date: 12/17/2017 18:47 Exam Location: [facility] Ht (in): 62 Wt (lb): 165 BSA: 1.84 BP: 104 / 58 Ordering Physician: Charles Connor MD Referring Physician: Kodi Singh M.D. Technologist: Marya Scherer JEFFERY Room Number: [id number] Indications: HEART FAILURE Rhythm: Technical Quality: FINDINGS Left Ventricle Normal LV chamber size with moderate concentric LVH. The estimated LVEF is 45%. There is global hypokinesis. Right Ventricle Normal appearing right ventricle Right Atrium Normal appearing right atrium Left Atrium Normal appearing left atrium Mitral Valve Mildly calcified mitral valve leaflets and annulus. There is normal leaflet opening. There is mild to moderate mitral regurgitation without prolapse. Aortic Valve Mildly calcified trileaflet aortic valve with adequate leaflet opening. There is mild aortic insufficiency. Tricuspid Valve Grossly normal appearing tricuspid valvular leaflets. There is moderate tricuspid regurgitation. The estimated PA systolic pressure is 45 mmHg. Pulmonic Valve Normal appearing pulmonic valve Pericardium Normal pericardium without effusion Great Vessels Normal great vessels CONCLUSIONS Normal LV chamber size with moderate concentric LVH. The estimated LVEF is 45%. There is global hypokinesis. Mildly calcified mitral valve leaflets and annulus. There is normal leaflet opening. There is mild to moderate mitral regurgitation without prolapse. There is mild aortic insufficiency. There is moderate tricuspid regurgitation. The estimated PA systolic pressure is 45 mmHg. Kodi Singh M.D. (Electronically Signed) Final Date: 18 December 2017 10:14 MEASUREMENTS (Male / Female) Normal Values 2D ECHO LV Diastolic Diameter PLAX 4.6 cm 4.2 - 5.9 / 3.9 - 5.3 cm LV Systolic Diameter PLAX 3.3 cm 2.1 - 4.0 cm LV Fractional Shortening PLAX 28.3 % 25 - 46 % LV Ejection Fraction 2D Teich 54.7 % IVS Diastolic Thickness 1.7 cm LVPW Diastolic Thickness 1.7 cm LV Relative Wall Thickness 0.7 RV Internal Dim ED PLAX 3.4 cm 1.9 - 3.8 cm LVOT Diameter 2.0 cm Aortic Root Diameter 3.0 cm LA Systolic Diameter LX 4.1 cm 3.0 - 4.0 / 2.7 - 3.8 cm LA Volume 114.0 cm 18 - 58 / 22 - 52 cm Ascending Aorta Diameter 3.1 cm DOPPLER AV Peak Velocity 151.0 cm/s AV Peak Gradient 9.1 mmHg AV Mean Velocity 97.5 cm/s AV Mean Gradient 5.0 mmHg AV Velocity Time Integral 26.5 cm LVOT Peak Velocity 78.2 cm/s LVOT Peak Gradient 2.4 mmHg LVOT Mean Velocity 55.4 cm/s LVOT Mean Gradient 1.0 mmHg LVOT Velocity Time Integral 18.3 cm LVOT Stroke Volume 57.5 cm AV Area Cont Eq vti 2.2 cm AV Area Cont Eq pk 1.6 cm MV Peak Velocity 98.3 cm/s MV Peak Gradient 3.9 mmHg MV Mean Velocity 54.9 cm/s MV Mean Gradient 1.0 mmHg Mitral E Point Velocity 100.5 cm/s Mitral A Point Velocity 76.0 cm/s Mitral E to A Ratio 1.3 MV PHT Velocity 104.0 cm/s MV Deceleration [place] 511.0 cm/s MV Pressure Half Time 61.1 ms MV Area PHT 3.6 cm MV Deceleration Time 161.0 ms TR Peak Velocity 286.0 cm/s TR Peak Gradient 32.7 mmHg Right Atrial Pressure 10.0 mmHg Pulmonary Artery Systolic Pressu 42.7 mmHg Right Ventricular Systolic Press 42.7 mmHg PV Peak Velocity 95.1 cm/s PV Peak Gradient 3.6 mmHg PV Mean Velocity 64.5 cm/s PV Mean Gradient 2.0 mmHg PV Velocity Time Integral 19.5 cm LV E' Lateral Velocity 4.0 cm/s Mitral E to LV E' Lateral Ratio 25.1 LV E' Septal Velocity 2.9 cm/s Mitral E to LV E' Septal Ratio 34.4
--- NOTE | 2017-12-18 10:54 | PN- Cardiology ---
Subjective Subjective: The patient is awake, alert The events of the last 24 hours as well as telemetry were reviewed. Review of Systems: The review of systems is negative for chest pains, palpitations nor lightheadedness. The remainder of the 14 point review of systems is noncontributory with the exception of above. Objective Vital Signs and I&Os Vital Signs Date Time Temp Pulse Resp B/P B/P Pulse O2 O2 Flow FiO2 Mean Ox Delivery Rate 12/18 0955 68 112/72 / 0701 98.9 68 20 112/72 96 Room Air / 0000 Room Air /05 2200 112/60 / 2154 98.7 66 20 96 Room Air / 2141 67 112/60 /05 2000 67 96/62 /05 1600 Room Air / 1410 98.0 61 20 92/46 91 Room Air 03/05 1151 61 110/60 /05 1149 61 110/60 Intake & Output 12/18 1600 12/18 0800 / 0000 12/17 1600 12/17 0800 12/17 0000 Intake Total 349 955 9100 300 Output Total 450 400 500 100 Balance 110 30 -400 620 200 Intake, IV 10 0 1000 300 Intake, Oral 100 480 120 Number 3 Bowel Movements Output, Urine 450 400 500 100 Patient 170 lb 165 lb Weight Weight Bed scale Bed scale Measurement Method Physical Exam: General: Nontoxic, no apparent distress. HEENT: Sclera and conjunctiva within normal limits, without xanthelasmas. Neck: Carotids 2+ without bruits. Respiratory: Scattered rhonchi, air movement is good, without accessory respiratory muscle use. Heart: Regular rate and rhythm, without murmurs, without JVD. Abdomen: Soft, nontender, no masses, normoactive bowel sounds. Extremities: Without clubbing, cyanosis, without edema. Neuro: Nonfocal exam, strength, 5 out of 5 Skin: Within normal limits without lesions. Psych: Mood and affect: Normal Current Medications: Current Medications Sig/Lucia Start time Last Medication Dose Route Stop Time Status Admin Acetaminophen 650 MG Q8P PRN 12/16 2345 AC PO Aspirin 81 MG DAILY 12/17 1000 AC / PO 0955 Atorvastatin Calcium 80 MG 1700 12/17 1700 AC 12/17 PO 1702 Carvedilol 6.25 MG BID 12/17 1000 AC 12/18 PO 0955 Ceftriaxone Sodium 1,000 MG 2300 12/17 2300 AC 12/18 IV 0045 Clopidogrel Bisulfate 75 MG DAILY 12/17 1000 AC 12/18 PO 0956 Famotidine 20 MG DAILY 12/17 1000 AC 12/18 PO 0956 Heparin Sodium 5,000 UNIT Q8 12/17 0600 AC 12/18 (Porcine) SC 0608 Insulin Aspart 0 TIDAC 12/17 0800 AC SC Patient Medication 1 ED ONE ONE 12/17 1415 DC Teaching ED 12/17 1416 Senna/Docusate Sodium 1 TAB AT BEDTIME 12/17 2200 AC PO Tramadol HCl 50 MG Q8P PRN 12/17 0430 AC PO Results Last 48 Hrs of Labs/Mics: Laboratory Tests 12/18/17 0615: Anion Gap 12, Estimated GFR 35 L, BUN/Creatinine Ratio 25.7 H, CBC w Diff NO MAN DIFF REQ, RBC 3.42 L, MCV 89.9, MCH 30.3, MCHC 33.8, RDW 13.1, MPV 9.1, Gran % 69.1, Lymphocytes % 18.4 L, Monocytes % 9.0, Eosinophils % 3.0, Basophils % 0.5, Absolute Granulocytes 5.1, Absolute Eosinophils 0.2, Absolute Basophils 0 12/17/17 1614: CBC w Diff NO MAN DIFF REQ, RBC 3.52 L, MCV 89.8, MCH 30.9, MCHC 34.4, RDW 13.2 , MPV 8.9, Gran % 70.9, Lymphocytes % 16.5 L, Monocytes % 8.8, Eosinophils % 3.0, Basophils % 0.8, Absolute Granulocytes 4.6, Absolute Lymphocytes 1.1 L, Absolute Monocytes 0.6, Absolute Eosinophils 0.2, Absolute Basophils 0.1 12/17/17 1100: Iron 34 L, TIBC 242 L, Ferritin 172.0, Troponin I 0.15 *H 12/17/17 1000: Urine Total Volume Cancelled, Ur Total Protein 24 Hr Cancelled 12/17/17 0400: Troponin I 0.16 *H, Triglycerides 48, Cholesterol 83, LDL Cholesterol, Calc 22 L, HDL Cholesterol 52, Cholesterol/HDL Ratio 2 12/17/17 0400: Anion Gap 12, Estimated GFR 28 L, BUN/Creatinine Ratio 25.3 H, CBC w Diff NO MAN DIFF REQ, RBC 3.49 L, MCV 90.2, MCH 30.5, MCHC 33.8, RDW 13.0, MPV 9.1, Gran % 71.0, Lymphocytes % 17.6 L, Monocytes % 10.1 H, Eosinophils % 1.1, Basophils % 0.2, Absolute Granulocytes 5.8, Absolute Lymphocytes 1.4, Absolute Monocytes 0.8 H, Absolute Eosinophils 0.1, Absolute Basophils 0 12/16/172313: Lactic Acid Cancelled 12/16/172222: Urinalysis LIGHT H, Urine Color YEL, Urine Clarity HAZY H, Urine pH 6.0, Ur Specific [place] 1.015, Urine Protein TRACE H, Urine Ketones NEG, Urine Nitrite POS H, Urine Bilirubin NEG, Urine Urobilinogen 0.2, Ur Leukocyte Esterase NEG, Ur Microscopic SEDIMENT EXAMINED, Ur Epithelial Cells FEW, Urine Bacteria MANY H, Urine Hemoglobin TRACE-INTACT, Urine Glucose NEG 12/16/172021: Anion Gap 15, Estimated GFR 25 L, BUN/Creatinine Ratio 23.7, Glucose 178 H, Calcium 9.5, Total Bilirubin 0.8, AST 23, ALT 34, Alkaline Phosphatase 62, Creatine Kinase 46, Troponin I 0.12 *H, Total Protein 7.3, Albumin 4.2, Globulin 3.1, Albumin/Globulin Ratio 1.4, PT 13.0 H, INR 1.19, APTT 28, CBC w Diff NO MAN DIFF REQ, RBC 4.18 L, MCV 90.2, MCH 30.4, MCHC 33.7, RDW 13.1, MPV 8.7, Gran % 83.8 H, Lymphocytes % 8.9 L, Monocytes % 6.2, Eosinophils % 1.0, Basophils % 0.1, Absolute Granulocytes 7.9 H, Absolute Lymphocytes 0.8 L, Absolute Monocytes 0.6, Absolute Eosinophils 0.1, Absolute Basophils 0 12/16/172011: Ur Random Creatinine 59.9, Ur Random Sodium 75, Ur Random Potassium 45.0, Fraction Sodium Excret 1.6 H Microbiology 12/16 2222 URINE ROUT: Urine Culture - COMP CITROBACTER FREUNDII Assessment/Plan Assessment/Plan 87-year-old woman with a past medical history of coronary artery disease (non-ST segment elevation myocardial infarction in 2010, status post bare metal stent to the LAD), mitral regurgitation, and ischemic, dilated cardiomyopathy (LVEF 35%), hyperlipidemia and chronic congestive heart failure secondary to systolic dysfunction she has well has a known [employer] pacemaker implant. She presented to our hospital with symptoms of weakness, difficulty ambulating and headache. She subsequently noted to have a UTI as well as elevated troponin isoenzymes. Elevated troponin isoenzymes: The patient presents with minimal enzyme elevation (peak: 0.16), and a plateau fashion. This is not consistent with an acute coronary syndrome; rather, likely exacerbated by her underlying renal dysfunction. We will continue an overall conservative approach to management. Aspirin and carvedilol will be continued. We will consider evaluating an underlying burden of ischemia as an outpatient. Acute UTI: Continue treatment as per the medical team Acute on chronic kidney disease: Appreciated nephrology input. We will continue to follow and hold diuretics as well as losartan. Lower extremity weakness: The patient will continue on dual antiplatelet therapy at this point. Pacemaker checks do not demonstrate atrial fibrillation. Neurology input will be appreciated. Continue telemetry? No
--- NOTE | 2017-12-18 12:20 | PN- Nephrology ---
Assessment/Plan Nephrology Assessment: Stage III CKD - SCr back to baseline (1.2-1.6) - Likely 2/2 hypertensive nephrosclerosis and age related changes. Can screen for nonalbumin protein as well. OTILIO on CKD - ?2/2 pre-renal azotemia in the setting of taking diuretics while having poor PO intake. Perhaps some mild ATN compounded by relative hypotension while on RAAS inhibition. No evidence of obstruction on UA. Resolved. Was on a diuretic and ARB at home - BP is a bit low so not sure she necessarily needs the ARB unless her BP comes up (understanding that this was likely for afterload reduction given her MR). No fluid at all on chest x-ray done on 12/16 - seems like the lasix can be restarted on discharge when she is taking in adequate PO. CHF - Records in [facility] with Dr. Vera reviewed. Given cardiac disease, volume status appears relatively euvolemic (after reviewing chest x-ray) and no clear need today to restart diuretic. Suggestion: -Cont to hold lasix and losartan for now - may be able to restart diuretic on discharge once taking in PO; would hold off on restarting losartan until BP comes up (understanding that it's more for afterload reduction) -Would check UProt, UCr - if >1g, would check SPEP, UPEP, KLFLC Will see PRN Please call [phone] with ?'s Subjective Subjective: SCr down to 1.4 Renal US without hydro Citrobacter UTI Objective Vital Signs and I&Os Vital Signs Date Time Temp Pulse Resp B/P B/P Pulse O2 O2 Flow FiO2 Mean Ox Delivery Rate 12/18 0955 68 112/72 12/18 0701 98.9 68 20 112/72 96 Room Air / 0000 Room Air / 2200 112/60 / 2154 98.7 66 20 96 Room Air / 2141 67 112/60 03/05 2000 67 96/62 /05 1600 Room Air / 1410 98.0 61 20 92/46 91 Room Air Intake & Output 12/18 1600 12/18 0400 12/17 1600 12/17 0400 12/16 1600 12/16 0400 Intake Total 885 067 2948 300 Output Total 450 900 100 Balance 110 30 220 200 Intake, IV 10 0 1000 300 Intake, Oral 100 480 120 Number 3 Bowel Movements Output, Urine 450 900 100 Patient 170 lb 165 lb Weight Weight Bed scale Bed scale Measurement Method Physical Exam: Gen - OK appearing HEENT - supple CV - RRR, no m/r/g Chest - poor inspiratory effort - decreased BS throughout Abd - soft, NTND Ext - warm, no edema Neuro - confused Current Medications: Current Medications Sig/Lucia Start time Last Medication Dose Route Stop Time Status Admin Acetaminophen 650 MG Q8P PRN 12/16 2345 AC PO Aspirin 81 MG DAILY 12/17 1000 AC 12/18 PO 0955 Atorvastatin Calcium 80 MG 1700 12/17 1700 AC 12/17 PO 1702 Carvedilol 6.25 MG BID 12/17 1000 AC 12/18 PO 0955 Ceftriaxone Sodium 1,000 MG 2300 12/17 2300 AC 12/18 IV 0045 Clopidogrel Bisulfate 75 MG DAILY 12/17 1000 AC 12/18 PO 0956 Famotidine 20 MG DAILY 12/17 1000 AC 12/18 PO 0956 Heparin Sodium 5,000 UNIT Q8 12/17 0600 AC 12/18 (Porcine) SC 0608 Insulin Aspart 0 TIDAC 12/17 0800 AC MS Patient Medication 1 ED ONE ONE 12/17 1415 DC Teaching ED 12/17 1416 Senna/Docusate Sodium 1 TAB AT BEDTIME 12/17 2200 AC PO Tramadol HCl 50 MG Q8P PRN 12/17 0430 AC PO Results Pertinent Lab Results: Laboratory Tests 12/18 12/17 0615 1614 Chemistry Sodium (137 - 145 mmol/L) 142 Potassium (3.5 - 5.1 mmol/L) 4.4 Chloride (98 - 107 mmol/L) 109 H Carbon Dioxide (22 - 30 mmol/L) 21 L Anion Gap (5 - 16) 12 BUN (7 - 17 mg/dL) 36 H Creatinine (0.5 - 1.0 mg/dL) 1.4 H Estimated GFR (>60 ml/min) 35 L BUN/Creatinine Ratio (7 - 25 %) 25.7 H Hematology CBC w Diff NO MAN DIFF REQ NO MAN DIFF REQ WBC (4.8 - 10.8 /CUMM) 7.3 6.5 RBC (4.20 - 5.40 /CUMM) 3.42 L 3.52 L Hgb (12.0 - 16.0 G/DL) 10.4 L 10.8 L Hct (37 - 47 %) 30.8 L 31.5 L MCV (81.0 - 99.0 FL) 89.9 89.8 MCH (27.0 - 31.0 PG) 30.3 30.9 MCHC (33.0 - 37.0 G/DL) 33.8 34.4 RDW (11.5 - 14.5 %) 13.1 13.2 Plt Count (130 - 400 /CUMM) 155 149 MPV (7.4 - 10.4 FL) 9.1 8.9 Gran % (42.2 - 75.2 %) 69.1 70.9 Lymphocytes % (20.5 - 51.1 %) 18.4 L 16.5 L Monocytes % (1.7 - 9.3 %) 9.0 8.8 Eosinophils % (0 - 5 %) 3.0 3.0 Basophils % (0.0 - 2.0 %) 0.5 0.8 Absolute Granulocytes (1.4 - 6.5 /CUMM) 5.1 4.6 Absolute Lymphocytes (1.2 - 3.4 /CUMM) 1.1 L Absolute Monocytes (0.10 - 0.60 /CUMM) 0.6 Absolute Eosinophils (0.0 - 0.7 /CUMM) 0.2 0.2 Absolute Basophils (0.0 - 0.2 /CUMM) 0 0.1 12/17 12/17 12/17 1100 UNK 0400 Chemistry Iron (37 - 170 ug/dL) 34 L TIBC (265 - 497 ug/dL) 242 L Ferritin (11.1 - 264 ng/mL) 172.0 Troponin I (< 0.11 ng/ml) 0.15 *H 0.16 *H Triglycerides (<150 mg/dL) 48 Cholesterol (<200 MG/DL) 83 LDL Cholesterol, Calc (65 - 129 mg/dL) 22 L HDL Cholesterol (40 - 60 mg/dL) 52 Cholesterol/HDL Ratio (0.00 - 4.23 %) 2 Urines Urine Total Volume Cancelled Ur Total Protein 24 Hr Cancelled 12/17 12/16 0400 2314 Chemistry Sodium (137 - 145 mmol/L) 139 Potassium (3.5 - 5.1 mmol/L) 4.2 Chloride (98 - 107 mmol/L) 105 Carbon Dioxide (22 - 30 mmol/L) 22 Anion Gap (5 - 16) 12 BUN (7 - 17 mg/dL) 43 H Creatinine (0.5 - 1.0 mg/dL) 1.7 H Estimated GFR (>60 ml/min) 28 L BUN/Creatinine Ratio (7 - 25 %) 25.3 H Lactic Acid Cancelled Hematology CBC w Diff NO MAN DIFF REQ WBC (4.8 - 10.8 /CUMM) 8.2 RBC (4.20 - 5.40 /CUMM) 3.49 L Hgb (12.0 - 16.0 G/DL) 10.7 L Hct (37 - 47 %) 31.5 L MCV (81.0 - 99.0 FL) 90.2 MCH (27.0 - 31.0 PG) 30.5 MCHC (33.0 - 37.0 G/DL) 33.8 RDW (11.5 - 14.5 %) 13.0 Plt Count (130 - 400 /CUMM) 149 MPV (7.4 - 10.4 FL) 9.1 Gran % (42.2 - 75.2 %) 71.0 Lymphocytes % (20.5 - 51.1 %) 17.6 L Monocytes % (1.7 - 9.3 %) 10.1 H Eosinophils % (0 - 5 %) 1.1 Basophils % (0.0 - 2.0 %) 0.2 Absolute Granulocytes (1.4 - 6.5 /CUMM) 5.8 Absolute Lymphocytes (1.2 - 3.4 /CUMM) 1.4 Absolute Monocytes (0.10 - 0.60 /CUMM) 0.8 H Absolute Eosinophils (0.0 - 0.7 /CUMM) 0.1 Absolute Basophils (0.0 - 0.2 /CUMM) 0 03/04 12/16 Chemistry Sodium (137 - 145 mmol/L) 140 Potassium (3.5 - 5.1 mmol/L) 4.8 Chloride (98 - 107 mmol/L) 99 Carbon Dioxide (22 - 30 mmol/L) 26 Anion Gap (5 - 16) 15 BUN (7 - 17 mg/dL) 45 H Creatinine (0.5 - 1.0 mg/dL) 1.9 H Estimated GFR (>60 ml/min) 25 L BUN/Creatinine Ratio (7 - 25 %) 23.7 Glucose (65 - 99 mg/dL) 178 H Calcium (8.4 - 10.2 mg/dL) 9.5 Total Bilirubin (0.2 - 1.3 mg/dL) 0.8 AST (14 - 36 U/L) 23 ALT (9 - 52 U/L) 34 Alkaline Phosphatase (<127 U/L) 62 Creatine Kinase (30 - 135 U/L) 46 Troponin I (< 0.11 ng/ml) 0.12 *H Total Protein (6.3 - 8.2 g/dL) 7.3 Albumin (3.5 - 5.0 g/dL) 4.2 Globulin (1.9 - 4.2 gm/dL) 3.1 Albumin/Globulin Ratio (1.1 - 2.2 %) 1.4 Coagulation PT (9.4 - 12.5 SEC) 13.0 H INR (0.90 - 1.19) 1.19 APTT (25 - 37 SEC) 28 Hematology CBC w Diff NO MAN DIFF REQ WBC (4.8 - 10.8 /CUMM) 9.4 RBC (4.20 - 5.40 /CUMM) 4.18 L Hgb (12.0 - 16.0 G/DL) 12.7 Hct (37 - 47 %) 37.7 MCV (81.0 - 99.0 FL) 90.2 MCH (27.0 - 31.0 PG) 30.4 MCHC (33.0 - 37.0 G/DL) 33.7 RDW (11.5 - 14.5 %) 13.1 Plt Count (130 - 400 /CUMM) 175 MPV (7.4 - 10.4 FL) 8.7 Gran % (42.2 - 75.2 %) 83.8 H Lymphocytes % (20.5 - 51.1 %) 8.9 L Monocytes % (1.7 - 9.3 %) 6.2 Eosinophils % (0 - 5 %) 1.0 Basophils % (0.0 - 2.0 %) 0.1 Absolute Granulocytes (1.4 - 6.5 /CUMM) 7.9 H Absolute Lymphocytes (1.2 - 3.4 /CUMM) 0.8 L Absolute Monocytes (0.10 - 0.60 /CUMM) 0.6 Absolute Eosinophils (0.0 - 0.7 /CUMM) 0.1 Absolute Basophils (0.0 - 0.2 /CUMM) 0 Urines Urinalysis LIGHT H Urine Color (YEL,AMB,STR) YEL Urine Clarity (CLEAR) HAZY H Urine pH (5.0 - 8.0) 6.0 Ur Specific Acton (1.001 - 1.035) 1.015 Urine Protein (NEG,<30 MG/DL) TRACE H Urine Ketones (NEG) NEG Urine Nitrite (NEG) POS H Urine Bilirubin (NEG) NEG Urine Urobilinogen (0.1 - 1.0 EU/dl) 0.2 Ur Leukocyte Esterase (NEG) NEG Ur Microscopic SEDIMENT EXAMINED Ur Epithelial Cells (NONE,FEW) FEW Urine Bacteria (NEG/NONE) MANY H Urine Hemoglobin (NEG) TRACE-INTACT Urine Glucose (N MG/DL) NEG 12/17 2011 Urines Ur Random Creatinine (mg/dL) 59.9 Ur Random Sodium (30 - 90 mmol/L) 75 Ur Random Potassium (mmol/L) 45.0 Fraction Sodium Excret (<1% %) 1.6 H Imaging/Other Studies: EXAM TYPE: US - US-RENAL/KIDNEY EXAMINATION: US RETROPERITONEAL COMPLETE (RENAL) CLINICAL INFORMATION: Acute kidney injury on chronic kidney disease. Assess for ureteral obstruction or hydronephrosis. COMPARISON: None TECHNIQUE: Real-time imaging of the kidneys and bladder. FINDINGS: RIGHT KIDNEY: 9.2 x 4.5 x 4.5 cm (SAG x AP x TRV). The kidney is normal in size, contour, and echogenicity. Renal cortical thickness is normal. No calculi or focal parenchymal lesions. No hydronephrosis. LEFT KIDNEY: 9.7 x 4.8 x 4.3 cm (SAG x AP x TRV). The kidney is normal in size, contour, and echogenicity. Renal cortical thickness is normal. No calculi or focal parenchymal lesions. No hydronephrosis. BLADDER: Completely decompressed by a Desouza catheter and not visualized. IMPRESSION: 1. Kidneys bilaterally are unremarkable with no evidence of hydronephrosis, nephrolithiasis or focal renal lesion seen. 2. Bladder completely decompressed by a Desouza catheter and not visualized. TTE CONCLUSIONS Normal LV chamber size with moderate concentric LVH. The estimated LVEF is 45%. There is global hypokinesis. Mildly calcified mitral valve leaflets and annulus. There is normal leaflet opening. There is mild to moderate mitral regurgitation without prolapse. There is mild aortic insufficiency. There is moderate tricuspid regurgitation. The estimated PA systolic pressure is 45 mmHg.
--- NOTE | 2017-12-18 13:04 | PN- Housestaff ---
Hilton WALKER,[facility] 12/18/17 1303: Subjective Follow-up For: 1. Headache and Bilateral leg weakness Left > Right 2. Right pronator drift concerning for TIA 3. Symptomatic UTI 4. Elevated troponin 5. History of chronic systolic heart failure Complaints: Generalized weakness, Right groin pain Tele-Events Since Last Visit: Sinus rhythm. Paced. HR 61-72 BPM. No events overnight. Subjective: Patient still has bilateral leg weakness worse on the left. She was seen by physical therapy who recommend short term rehab but the patient does not want to do this and prefers to go home where her son is her 24 hour field care coordinator. She denies headaches, blurring of vision, neck stiffness. She denies numbness in any other part of the body. She denies fevers, chills, nausea or vomiting or abdominal pain. She denies shortness of breath or cough. She denies chest pains , palpitations or lightheadedness. Review of Systems Constitutional: Reports: see HPI. Denies: chills, fever. Objective Last 24 Hrs of Vital Signs/I&O Vital Signs Date Time Temp Pulse Resp B/P B/P Pulse O2 O2 Flow FiO2 Mean Ox Delivery Rate 12/18 1452 98.2 62 20 108/64 98 Room Air /06 0955 68 112/72 03/06 0701 98.9 68 20 112/72 96 Room Air 03/06 0000 Room Air 03/05 2200 112/60 03/05 2154 98.7 66 20 96 Room Air 03/05 2141 67 112/60 03/05 2000 67 96/62 Intake & Output /06 1600 /06 0800 03/06 0000 Intake Total 400 110 480 Output Total 450 450 Balance -50 110 30 Intake, IV 10 0 Intake, Oral 400 100 480 Number 1 3 Bowel Movements Output, Urine 450 450 Patient 170 lb 170 lb Weight Weight Bed scale Measurement Method Physical Exam General Appearance: Alert, Oriented X3, Cooperative, No Acute Distress Skin: Right groin abscess resolving Skin Temp/Moisture Exam: Warm/Dry Sepsis Skin Exam (color): Normal for Ethnicity HEENT: Atraumatic, PERRLA, EOMI, Mucous Membr. moist/pink Neck: Supple, No JVD, No thryomegaly, +2 Carotid Pulse wo Bruit Lymphatic: Cervical nl Cardiovascular: Regular Rate, Normal S1, Normal S2, No Murmurs Lungs: Clear to Auscultation, Normal Air Movement Abdomen: Normal Bowel Sounds, Soft, No Tenderness, No Hepatospenomegaly, No Masses, Stool guaiac is negative Neurological: Normal Speech, Normal Tone, Sensation Intact, Cranial Nerves 3-12 NL Extremities: No Edema, Normal Pulses Current Medications: Current Medications Sig/Lucia Start time Last Medication Dose Route Stop Time Status Admin Acetaminophen 650 MG Q8P PRN 12/16 2345 DCD PO Aspirin 81 MG DAILY 12/17 1000 DCD 03/ PO 0955 Atorvastatin Calcium 80 MG 1700 12/17 1700 DCD 03/ PO 1702 Carvedilol 6.25 MG BID 12/17 1000 DCD 12/18 PO 0955 Ceftriaxone Sodium 1,000 MG 2300 12/17 2300 DCD 12/18 IV 0045 Clopidogrel Bisulfate 75 MG DAILY 12/17 1000 DCD 12/18 PO 0956 Famotidine 20 MG DAILY 12/17 1000 DCD 12/18 PO 0956 Heparin Sodium 5,000 UNIT Q8 12/17 0600 DCD 12/18 (Porcine) SC 0608 Insulin Aspart 0 TIDAC 12/17 0800 DCD SC Patient Medication 1 ED ONE ONE 12/18 1515 DC Teaching ED 12/18 1516 Senna/Docusate Sodium 1 TAB AT BEDTIME 12/17 2200 DCD PO Tramadol HCl 50 MG Q8P PRN 12/17 0430 DCD PO Last 24 Hrs of Lab/Jose Juan Results Last 24 Hrs of Labs/Mics: Laboratory Tests 12/18/17 0615: Anion Gap 12, Estimated GFR 35 L, BUN/Creatinine Ratio 25.7 H, CBC w Diff NO MAN DIFF REQ, RBC 3.42 L, MCV 89.9, MCH 30.3, MCHC 33.8, RDW 13.1, MPV 9.1, Gran % 69.1, Lymphocytes % 18.4 L, Monocytes % 9.0, Eosinophils % 3.0, Basophils % 0.5, Absolute Granulocytes 5.1, Absolute Eosinophils 0.2, Absolute Basophils 0 Assessment/Plan Assessment: Ms Sanford is an 87 year old woman w/ a PMHx of CAD (non-ST segment elevation myocardial infarction in 2010, status post bare metal stent to the LAD), dilated cardiomyopathy (LVEF 35%), HFrEF, bradyarrythmisMedtronic pacemaker implantr ( follows w/ Dr. Vera ), mitral regurgitation who presented with a chief concern of occipital headache, bilateral lower extremity weakness, difficulty in ambulation with drifting to right side while walking on the day of presentation. She does have some intermittent dysuria of about 1 week duration. She has had a similar presentation with weakness at [facility] when she had a UTI in 2017. CT of her head was negative for an acute intracranial lesion or bleed. CT cervical spine showed no acute lesion of the cervical spine. Chest x-ray showed a midlung opacification on the left suspicious for subtle pneumonia or atelectasis. However she had no pulmonary symptoms. She was evaluated for left leg weakness with concerns for a TIA, UTI and elevated troponin in setting of acute on chronic CKD. Problem 1. Bilateral leg weakness, worse on the left, lethargy and headache * Neurology consultation appreciated * Bilateral leg weakness likely due to UTI rather than TIA or stroke * Carotid doppler shows no significant arterial stenosis * MRI brain could not be done as patient's bare metal stents and pacer are not compatible with MRI * Lipid panel this morning within acceptable limits * Can discharge on home crestor 40 mg daily and * Start aspirin 81 mg daily for 30 days * Patient already on Plavix 75 mg daily for CAD * Stool guaiac is negative 2. Acute kidney injury on CKD * Patient had a prior creatinine of 1.44 in February 2017-from review of records from [place] * Creatinine has improved from 1.9 to 1.4 today * Urine lites shows Fena of 1.6 consistent with CKD * Discontinue losartan on discharge as her blood pressure is normal * Restart PO lasix 40 mg daily * Follow up with nephrology on discharge 3. Symptomatic acute UTI * Urinalysis shows positive nitrites with no WBC * Urine culture is growing Citrobacter this morning * Switch IV ceftriaxone to PO ciprofloxacin 500 mg BID for additional 5 days 4. Elevated troponin likely demand ischemia plus reduced clearance by kidneys * Troponin trended from 0.12 on admission to 0.16, likely due to demand ischemia with no EKG changes * Echocardiogram shows normal LV chamber size with moderate concentric LVH. The estimated LVEF was 45% with global hypokinesia. 6. Chronic systolic heart failure, CAD * Continue carvedilol 6.25 mg twice a day 7. Type 2 diabetes * Continue NovoLog sliding scale * Accu-Cheks 3 times a day before meals * Change back to tradjenta on discharge 8. Left groin abscess near vulva * General surgery input appreciated * Apply daily warm compress 9. DVT prophylaxis Subcutaneous heparin 5000 units every 8 hours Code Status: Full code Problem List: 1. Leg weakness, bilateral 2. Generalized weakness 3. Acute renal injury Pain Ratin Pain Location: Right groin Pain Goal: Pain 4 or less Pain Plan: Tylenol prn Tomorrow's Labs & Rationales: None needed Discharge Plan Stable for Discharge? Yes Anticipated Discharge (Day): tomorrow Venkat Calix MD 12/18/17 1305: Attending MD Review Statement Attending Statement Attending MD Statement: examined this patient, discuss w/resident/PA/[employer] [facility], agreed w/resident/PA/[employer] [facility], reviewed EMR data (avail), discussed with nursing, discussed with case mgmt, amended to note Attending Assessment/Plan: Patient seen and examined. Resting comfortably not in any acute distress. No issues overnight on cafeteria monitor. Patient offers no new complaints today. Continues complain of generalized weakness. She was seen by the physical therapy service recommendations for discharge to halfway facility however patient and family are adamant about not going to a halfway facility. On examination patient has no neurologic deficits in her upper extremities. She continues to have weakness of her left lower extremity. According to the patient this is chronic. No acute pathology was noted on CT scan of the brain. She is unable to undergo MRI. Problems: 1. Left leg weakness 2. Acute kidney injury 3. Urinary tract infection 4. Elevated troponins Plan: -Unable to determine if her left leg weakness is due to cerebrovascular event. Head CT shows no evidence of stroke. She is unable to undergo MRI. Given her advanced age will focus on physical therapy as tolerated. Patient and family adamantly refused to go to halfway facility. She will be discharged home with home PT services. -She is currently growing Citrobacter in the urine. Patient admitted to burning urination on presentation. She remains afebrile. She remains without leukocytosis. Continue antibiotic therapy to complete 5 days of therapy for her cystitis. -Elevated troponins likely due to demand ischemia. Echo shows EF of 45% and global hypokinesis. Please follow-up with her primary care provider regarding baseline echocardiogram results. -Renal function has improved. Nephrology consultation appreciated. She is due to complete 24-hour urine collection today. -Anticipate discharge home tomorrow if patient remains clinically stable. She will continue to benefit from physical therapy services while in the hospital. She reports that she feels too weak to go home today but declines to go to a halfway facility.
--- NOTE | 2017-12-18 14:04 | Discharge Summary ---
Visit Information Visit Dates Admission Date: 12/16/17 Discharge Date: 12/18/17 Hospital Course Course Attending Physician: Venkat Calix MD Primary Care Physician: Melvin Kyle MD Consulting Request: 1 Consulting Specialty: Cardiology Consulting Physician: Dr. Singh Reason for Consult: Elevated troponins Consulting Request: 2 Consulting Specialty: Neurology Consulting Physician: Dr. Napier Reason for Consult: Bilateral leg weakness worse on left Consulting Request: 3 Consulting Specialty: Nephrology Consulting Physician: Dr. Johnson Reason for Consult: Acute kidney injury on CKD Consulting Request: 4 Consulting Specialty: General Surgery Consulting Physician: Dr. 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 She presented with a chief complaint of occipital headache, bilateral lower extremity weakness, and difficulty in ambulation with drifting to right side while walking on the day of presentation. In addition, she had been having intermittent dysuria for 1 week prior to presentation. She also reported difficulty swallowing occasionally, but did not have any odynophagia. She denied tingling, numbness, loss of bladder bowel function, seizures, loss of consciousness. At the time of admission, vitals-temperature 98.1, pulse rate 62, respiration 18 , blood pressure 119/56 mmhg, pulse ox 97% on room air. On examination, she appeared euvolemic. She was alert oriented 3. without pallor. Heart and lung examination were unremarkable. Neurological examination- cranial nerves were grossly normal. Strength 4/5 right upper and lower extremities, her left leg was slightly weaker than the right. Her reflexes were 5/5 bilaterally, with no sensory deficits. She had +2 pedal edema. Significant labs included a CBC with no leukocytosis, BUN 45, creatinine 1.9, glucose 178, troponins were 0.12. Urinalysis was hazy, with trace proteinuria, nitrite positive, many bacteria, but no WBC. CT of her head was negative for an acute intracranial lesion or bleed. CT cervical spine showed no acute lesion of the cervical spine. Chest x-ray showed a midlung opacification on the left suspicious for subtle pneumonia or atelectasis. However she had no pulmonary symptoms. She was admitted to the telemetry floor for management of a urinary tract infection, bilateral leg weakness and multifactorial gait disorder with concerns for a TIA, and elevated troponin in the setting of acute kidney injury on background CKD. She was started on IV ceftriaxone for a urinary tract infection. Her urine culture grew citrobacter and antibiotics were changed to PO ciprofloxacin 500 mg BID to complete 7 days of antibiotics. She was reviewed by owner manager Dr. lazo and her creatinine improved after gentle IV fluids hydration and returned to 1.4 mg/dl which was around her baseline. Her losartan home medication was stopped due to her elevated creatinine and the fact that her blood pressure was normal off this medication. Her serial troponins peaked at 0.16 and she had no EKG changes. She was reviewed by general passenger agent Dr. Singh and her troponin elevation was thought to be related to her chronic kidney disease. Echocardiogram showed normal LV chamber size with moderate concentric LVH. The estimated LVEF was 45%. There was global hypokinesis. A carotid doppler ultrasound small plaque in left carotid but no hemodynamically significant carotid stenosis. She was reviewed by neurologist Dr. Napier who felt that her symptoms were mainly due to a urinary tract infection. However, an MRI could not be done to conclusively rule out a posterior circulation stroke due to the patient's pacemaker and bare metal stents. However, he felt patient would benefit from physical therapy and recommended continuing the aspirin, plavix and ARB which were being given in the hospital. She was initially recommended to go to short-term rehabilitation, but the patient and her family refused. They strongly preferred her to go home with physical therapy where her son was her 24 hour care-medical social consultant. She was discharged home with physical therapy. She had a small right groin abscess which was already discharging while on admission. She was evaluated by the general surgeon and warm compress was recommended. Allergies: Coded Allergies: No Known Allergies (12/16/17) Disposition Summary Disposition Principal Diagnosis: 1. Bilateral leg weakness, worse on the left and lethargy 2. Multifactorial gait disorder 3. Acute kidney injury on CKD 4. Symptomatic acute UTI 5. Elevated troponin secondary to reduced clearance by kidneys Additional Diagnosis: 6. Chronic systolic heart failure, CAD 7. Type 2 diabetes 8. Left groin abscess near vulva Discharge Disposition: home health services Discharge Instructions General Discharge Information Code Status: Full Code Patient's Diet: Diabetic and heart healthy diet Patient's Activity: Self-limited activity Follow-Up Instructions/Appts: 1. Follow up with your primary care provider within 1 week of discharge. 2. Follow up with your owner manager, Dr. Johnson within 1 week of discharge. 3. Follow up with your general passenger agent, Dr. Singh within 1 week of discharge. 4. Follow up with your neurologist, Dr. Napier within 1 week of discharge 5. Complete 5 more days of antibiotics for your urinary tract infection Medications at Discharge Discharge Medications: Stop taking the following medications: Losartan Potassium (Losartan Potassium) 100 MG TABLET ORAL DAILY Qty = 30 Continue taking these medications: Furosemide (Furosemide) 40 MG TABLET 1 Tablet ORAL DAILY Qty = 30 Comments: NOT GIVEN IN HOSPITAL Carvedilol (Carvedilol) 6.25 MG TABLET 1 Tablet ORAL TWICE DAILY Qty = 60 Comments: Last Taken: 12/18/17 Time: 10:00 AM Linagliptin (Tradjenta) 5 MG TABLET 1 Tablet ORAL DAILY Qty = 30 Comments: NOT GIVEN IN HOSPITAL Potassium Chloride (Potassium Chloride) 10 MEQ TAB.ER.PRT 1 Tablet ORAL DAILY Qty = 30 Comments: NOT GIVEN IN HOSPITAL Rosuvastatin Calcium (Crestor) 40 MG TABLET 1 Tablet ORAL DAILY Qty = 90 Comments: Last Taken: 12/18/17 Time: 3:45 PM Clopidogrel Bisulfate (Clopidogrel) 75 MG TABLET 1 Tablet ORAL DAILY Qty = 90 Comments: Last Taken: 12/18/17 Time: 10:00 AM Start taking the following new medications: Ciprofloxacin HCl (Cipro) 500 MG TABLET 1 Tablet ORAL TWICE DAILY Qty = 10 No Refills Instructions: . Comments: NOT GIVEN IN HOSPITAL Aspirin (Ecotrin*) 81 MG TABLET. 1 Tablet ORAL DAILY Qty = 30 No Refills Instructions: . Comments: Last Taken: 12/18/17 Time: 10:00 AM Copies To: Alex WALKER,Andreas Hernandez; Quyen WALKER,Tee; Melvin Kyle MD; Francisco WALKER,Kodi Attending MD Review Statement Documenting Attending: Venkat Calix MD Other Findings: Discharged in stable condition.
[2017-12-18] MEDS ORDERED: CIPRO500 M1 PO ×2 (14:07→14:46)
[2017-12-18] MEDS ORDERED: ASPIRIN EC81 M1 PO ×2 (14:10→14:46)
[2017-12-18 14:52] VITALS: BP 108/64
== END 2017-12-18 16:05 | disposition home health service (06) | DRG 690 ==
LOC: ERH 20:01 → ERHI 22:08 → 1NO 22:08 → ENRESERV 22:58 → 1NO 23:53 → ENPENDDIS 12-18 15:54 → ENTRNSPT 12-18 15:57 → 1NO 12-18 16:05 → EDTRNSPTSTS 12-18 16:22 → CMPTRNSPT 12-18 16:23
PROVIDERS: Emergency Medicine; Internal Medicine; Internal Medicine Endocrinology, Diabetes & Metabolism
DX: N39.0 Urinary tract infection, site not specified (principal); N17.9 Acute kidney failure, unspecified; E11.22 Type 2 diabetes mellitus with diabetic chronic kidney disease; I24.8 Other forms of acute ischemic heart disease; I13.0 Hypertensive heart and chronic kidney disease with heart failure and stage 1 through stage 4 chronic kidney disease, or unspecified chronic kidney disease; I50.22 Chronic systolic (congestive) heart failure; L02.214 Cutaneous abscess of groin; N18.3 Chronic kidney disease, stage 3 (moderate); I25.5 Ischemic cardiomyopathy; I34.0 Nonrheumatic mitral (valve) insufficiency; L73.9 Follicular disorder, unspecified; I25.10 Atherosclerotic heart disease of native coronary artery without angina pectoris; E78.5 Hyperlipidemia, unspecified; I25.2 Old myocardial infarction; Z95.0 Presence of cardiac pacemaker; Z79.84 Long term (current) use of oral hypoglycemic drugs
CPT/HCPCS: 1NP; 84133; 84300; 36415; 36592; 71045; 76775; 81001; 82436; 82570; 87040; 87086; 93005; 93010; 93306; 97110-GO; 97161-GP; 97166-GO; 97530-GO; J0696; J1644; J3490

== ENCOUNTER 2018-02-03 19:27 | Emergency (ER) | payer OTHER, MEDICARE ==
[~2018-02-03] VITALS: Ht 160 cm; Wt 68.0 kg
[~2018-02-03 19:27] MED LIST: ASPIRIN EC81 M1 PO; CARVEDILOL6.25 M1 PO; CIPRO500 M1 PO; CLOPIDOGREL75 M1 PO; CRESTOR40 M2 PO; FUROSEMIDE40 M1 PO; LOSARTAN POTAS100 M1 PO; POTASSIUM CHLO10 ME5 PO; TRADJENTA5 M1 PO
--- NOTE | 2018-02-03 19:31 | ED DYSPNEA/ASTHMA COMPLAINT ---
History of Present Illness General Chief Complaint: Dyspnea (COPD, CHF, Other) Stated Complaint: BIBA SOB Source: patient, old records, EMS Exam Limitations: no limitations Vital Signs & Intake/Output Vital Signs & Intake/Output Vital Signs Date Time Temp Pulse Resp B/P B/P Pulse O2 O2 Flow FiO2 Mean Ox Delivery Rate 02/03 2225 98.5 57 18 134/66 95 Room Air Room Air 02/03 2025 98.2 61 18 136/68 97 Room Air Room Air 02/03 2006 96 Room Air Room Air 02/03 1949 98 02/03 1931 98.3 69 20 132/64 96 Room Air ED Intake and Output 02/04 0000 02/03 1200 Intake Total Output Total Balance Patient 150 lb Weight Weight Estimated Measurement Method Allergies Coded Allergies: No Known Allergies (12/16/17) Reconcile Medications Aspirin (Ecotrin*) 81 MG TABLET.DR 1 TAB PO DAILY STROKE PREVENTION . Carvedilol 6.25 MG TABLET 1 TAB PO BID HEART (Reported) Ciprofloxacin HCl (Cipro) 500 MG TABLET 1 TAB PO BID URINE INFECTION . Clopidogrel Bisulfate (Clopidogrel) 75 MG TABLET 1 TAB PO DAILY HEART ( Reported) Furosemide 40 MG TABLET 1 TAB PO DAILY HEART (Reported) Linagliptin (Tradjenta) 5 MG TABLET 1 TAB PO DAILY DIABETES (Reported) Potassium Chloride 10 MEQ TAB.ER.PRT 1 TAB PO DAILY HEART (Reported) Rosuvastatin Calcium (Crestor) 40 MG TABLET 1 TAB PO DAILY HEART (Reported) Triage Nurses Notes Reviewed? yes Onset: Gradual Duration: week(s):, waxing and waning Timing: recent history Severity: moderate Prior Episodes/Possible Cause: occasional episodes Associated Symptoms: cough HPI: 87 yo woman h/o cad, pacer, mitral valve disease presents with 2 weeks of cough, phlegm, weakness and fatigue. "I feel all this phlegm in my chest and I can't get it out." "I feel so weak... like I can't take care of myself." She notes mild chest pressure intermittent. She notes no syncopal type symptoms, nausea, vomiting, diarrhea. She is otherwise well. Past History Travel History Traveled to [place] past 21 day No Medical History Any Pertinent Medical History? see below for history Neurological: NONE EENT: NONE Cardiovascular: CAD, hypertension, hyperlipidemia, mitral regurgitation Respiratory: NONE Gastrointestinal: NONE Hepatic: NONE Renal: NONE Musculoskeletal: NONE Psychiatric: NONE Endocrine: diabetes Blood Disorders: NONE History of MRSA: No History of VRE: No History of CDIFF: No Influenza Vaccine: 07/15/17 Surgical History Surgical History: hysterectomy, PACEMAKER Psychosocial History Who do you live with Son What is your primary language [place] Family History Hx Contributory? No Review of Systems Review of Systems Constitutional: Reports: no symptoms. EENTM: Reports: no symptoms. Respiratory: Reports: no symptoms. Cardiovascular: Reports: no symptoms. GI: Reports: no symptoms. Genitourinary: Reports: no symptoms. Musculoskeletal: Reports: no symptoms. Skin: Reports: no symptoms. Neurological/Psychological: Reports: no symptoms. Hematologic/Endocrine: Reports: no symptoms. Immunologic/Allergic: Reports: no symptoms. All Other Systems: Reviewed and Negative Physical Exam Physical Exam General Appearance: well developed/nourished, mild distress Head: atraumatic, normal appearance Eyes: Bilateral: normal appearance. Ears, Nose, Throat: normal pharynx, normal ENT inspection Neck: normal inspection, supple, full range of motion Respiratory: rhonchi Cardiovascular: regular rate/rhythm Gastrointestinal: normal bowel sounds, soft, non-tender, no organomegaly Rectal: normal rectal tone, heme negative stool Extremities: trace edema bilaterally Neurologic/Psych: no motor/sensory deficits, awake, alert, oriented x 3 Skin: intact, normal color, warm/dry Core Measures ACS in differential dx? No CVA/TIA Diagnosis No Sepsis Present: No Sepsis Focused Exam Completed? No Progress Differential Diagnosis: asthma, bronchitis, CHF, COPD, pneumonia Plan of Care: Orders Procedure Date/time Status BLOOD CULTURE 02/03 1950 Active BLOOD CULTURE 02/03 1949 Active RAPID VIRAL INFLUENZA A 02/03 1943 Complete TROPONIN LEVEL 02/03 1931 Complete LIPASE 02/03 1931 Complete HEPATIC FUNCTION PANEL 02/03 1931 Complete D-DIMER 02/03 1931 Complete CBC WITHOUT DIFFERENTIAL 02/03 1931 Complete BASIC METABOLIC PANEL 02/03 1931 Complete AMYLASE 02/03 1931 Complete EKG 02/03 1929 Active Laboratory Tests 02/03/181958: Anion Gap 15, Estimated GFR 26 L, BUN/Creatinine Ratio 23.9, Glucose 111 H, Calcium 9.3, Total Bilirubin 0.8, Direct Bilirubin 0.6 H, AST 29, ALT 28, Alkaline Phosphatase 58, Troponin I 0.19 *H, Total Protein 7.7, Albumin 4.5, Amylase 71, Lipase 136, D-Dimer High Sensitivty 460 H, CBC w Diff NO MAN DIFF REQ, RBC 3.91 L, MCV 89.6, MCH 30.0, MCHC 33.5, RDW 14.2, MPV 8.8, Gran % 73.6, Lymphocytes % 13.9 L, Monocytes % 9.3, Eosinophils % 2.6, Basophils % 0.6, Absolute Granulocytes 4.6, Absolute Lymphocytes 0.9 L, Absolute Monocytes 0.6, Absolute Eosinophils 0.2, Absolute Basophils 0 Microbiology 02/03 2033 BLOOD: Blood Culture - RECD 02/03 2022 NASOPHARYN: Influenza Virus A & B Rapid Smear - COMP 02/04 2012 BLOOD: Blood Culture - RECD Diagnostic Imaging: Viewed by Me: Radiology Read. Discussed w/RAD: Radiology Read. CXR Impression: PATIENT: EROS MCGOWAN PRESENT AGE: 87 PATIENT ACCOUNT NO: [id number] : [birth year] LOCATION: [facility] ORDERING PHYSICIAN: Adilson Nelson MD SERVICE DATE: 02/03/18 EXAM TYPE: RAD - XRY- PORTABLE CHEST XRAY EXAMINATION: XR PORTABLE CHEST CLINICAL INFORMATION: Chest pain. COMPARISON: Chest radiograph 12/16/2017. TECHNIQUE: Portable frontal view of the chest was obtained. FINDINGS: Able dual-lead left-sided ICD with leads in the region of the right atrium and right ventricle. Stable cardiomegaly. Pulmonary vasculature is within normal limits. No focal airspace consolidation. No pleural effusion. Degenerative changes of both shoulders appear unchanged. IMPRESSION: Stable cardiomegaly. No focal airspace consolidation. DICTATED BY: Abilio Magdaleno MD DATE/TIME DICTATED:02/03/182106 JAVA LEAD:JERRY DATE/TIME TRANSCRIBED:02/03/182106 CONFIDENTIAL, DO NOT COPY WITHOUT APPROPRIATE AUTHORIZATION. <Electronically signed in Other Vendor System> SIGNED BY: Abilio Magdalneo MD 02/03/182110 Initial ED EKG: paced.no acute changes Departure Departure Disposition: STILL A PATIENT Condition: Stable Clinical Impression Primary Impression: Bronchitis Secondary Impressions: Dehydration, Elevated troponin, Generalized weakness Referrals: Melvin Kyle MD (PCP/Family) Departure Forms: Customer Survey General Discharge Information Comments 02/03/18, 21:51.... pt family request, pt wishes to go to [facility] where she receives her cardiac care with dr. hurst... discussed with dr. paredes, covering for dr. hurst, who accepts patient. 02/09/18, 22:06... Discussed with Dr. Harinder More, hospitalist, who accepts patient... pt to go to [facility] ED. Critical Care Note Critical Care Note Critical Care Time: 30-74 min
--- NOTE | 2018-02-03 19:31 | ED DYSPNEA/ASTHMA COMPLAINT ---
History of Present Illness General Chief Complaint: Dyspnea (COPD, CHF, Other) Stated Complaint: BIBA SOB Allergies Coded Allergies: No Known Allergies (12/16/17) Reconcile Medications Aspirin (Ecotrin*) 81 MG TABLET.DR 1 TAB PO DAILY STROKE PREVENTION . Carvedilol 6.25 MG TABLET 1 TAB PO BID HEART (Reported) Ciprofloxacin HCl (Cipro) 500 MG TABLET 1 TAB PO BID URINE INFECTION . Clopidogrel Bisulfate (Clopidogrel) 75 MG TABLET 1 TAB PO DAILY HEART ( Reported) Furosemide 40 MG TABLET 1 TAB PO DAILY HEART (Reported) Linagliptin (Tradjenta) 5 MG TABLET 1 TAB PO DAILY DIABETES (Reported) Potassium Chloride 10 MEQ TAB.ER.PRT 1 TAB PO DAILY HEART (Reported) Rosuvastatin Calcium (Crestor) 40 MG TABLET 1 TAB PO DAILY HEART (Reported) Triage Nurses Notes Reviewed? yes Past History Travel History Traveled to [place] past 21 day No Medical History Neurological: NONE EENT: NONE Cardiovascular: CAD, hypertension, hyperlipidemia, mitral regurgitation Respiratory: NONE Gastrointestinal: NONE Hepatic: NONE Renal: NONE Musculoskeletal: NONE Psychiatric: NONE Endocrine: diabetes Blood Disorders: NONE History of MRSA: No History of VRE: No History of CDIFF: No Influenza Vaccine: 07/15/17 Surgical History Surgical History: hysterectomy, PACEMAKER Psychosocial History Who do you live with Son What is your primary language Occitan Review of Systems Review of Systems Constitutional: Reports: no symptoms. EENTM: Reports: no symptoms. Respiratory: Reports: no symptoms. Cardiovascular: Reports: no symptoms. GI: Reports: no symptoms. Genitourinary: Reports: no symptoms. Musculoskeletal: Reports: no symptoms. Skin: Reports: no symptoms. Neurological/Psychological: Reports: no symptoms. Hematologic/Endocrine: Reports: no symptoms. Immunologic/Allergic: Reports: no symptoms. All Other Systems: Reviewed and Negative Progress Plan of Care: Orders Procedure Date/time Status EKG 02/03 1929 Active Departure Departure Condition: Stable Referrals: Saroj WALKER,Melvin Hernandez (PCP/Family) Departure Forms: Customer Survey General Discharge Information
[2018-02-03 20:06] LABS: ABSOLUTE BASOPHIL COUNT 0 /CUMM (0.0-0.2); ABSOLUTE EOSINOPHIL COUNT 0.2 /CUMM (0.0-0.7); ABSOLUTE GRANULOCYTE CT 4.6 /CUMM (1.4-6.5); ABSOLUTE LYMPH COUNT 0.9 /CUMM (1.2-3.4); ABSOLUTE MONOCYTE COUNT 0.6 /CUMM (0.10-0.60); BASOPHIL % 0.6 % (0.0-2.0); EOSINOPHIL % 2.6 % (0-5); GRANULOCYTE % 73.6 % (42.2-75.2); MEAN CORPUSCULAR HGB CONC 33.5 G/DL (33.0-37.0); MEAN CORPUSCULAR VOLUME 89.6 FL (81.0-99.0); MEAN PLATELET VOLUME 8.8 FL (7.4-10.4); PLATELET COUNT 184 /CUMM (130-400); RBC DISTRIBUTION WIDTH 14.2 % (11.5-14.5); RED BLOOD CELL CT 3.91 /CUMM (4.20-5.40); WHITE BLOOD CELL COUNT 6.3 /CUMM (4.8-10.8)
--- NOTE | 2018-02-03 21:11 | RADIOLOGY REPORT ---
EXAMINATION: XR PORTABLE CHEST CLINICAL INFORMATION: Chest pain. COMPARISON: Chest radiograph 12/16/2017. TECHNIQUE: Portable frontal view of the chest was obtained. FINDINGS: Able dual-lead left-sided ICD with leads in the region of the right atrium and right ventricle. Stable cardiomegaly. Pulmonary vasculature is within normal limits. No focal airspace consolidation. No pleural effusion. Degenerative changes of both shoulders appear unchanged. IMPRESSION: Stable cardiomegaly. No focal airspace consolidation.
[2018-02-03 22:25] VITALS: BP 134/66
== END 2018-02-03 22:48 | disposition short-term general hospital (02) ==
LOC: ERH 19:27
PROVIDERS: Pediatrics
DX: J40 Bronchitis, not specified as acute or chronic (principal); R07.89 Other chest pain; E86.0 Dehydration; R53.1 Weakness; R79.89 Other specified abnormal findings of blood chemistry; I25.10 Atherosclerotic heart disease of native coronary artery without angina pectoris; I10 Essential (primary) hypertension
CPT/HCPCS: 1263; 71045; 87040; 87804; 87804-59; 93005; 93010; 96374; 96375; 99291; J0696; J1644

== ENCOUNTER 2018-04-21 18:33 | Inpatient (IN) | payer OTHER, MEDICARE ==
[~2018-04-21] VITALS: Ht 157.5 cm; Wt 70.3 kg
[2018-04-21 18:55] LABS: ABSOLUTE BASOPHIL COUNT 0 /CUMM (0.0-0.2); ABSOLUTE EOSINOPHIL COUNT 0.1 /CUMM (0.0-0.7); ABSOLUTE GRANULOCYTE CT 3.8 /CUMM (1.4-6.5); ABSOLUTE LYMPH COUNT 0.9 /CUMM (1.2-3.4); ABSOLUTE MONOCYTE COUNT 0.7 /CUMM (0.10-0.60); BASOPHIL % 0.6 % (0.0-2.0); EOSINOPHIL % 2.1 % (0-5); GRANULOCYTE % 68.5 % (42.2-75.2); HEMATOCRIT 35.7 % (37-47); MEAN CORPUSCULAR HGB 29.3 PG (27.0-31.0); MEAN CORPUSCULAR HGB CONC 32.7 G/DL (33.0-37.0); MEAN CORPUSCULAR VOLUME 89.6 FL (81.0-99.0); MEAN PLATELET VOLUME 8.4 FL (7.4-10.4); PLATELET COUNT 194 /CUMM (130-400); RBC DISTRIBUTION WIDTH 16.8 % (11.5-14.5); RED BLOOD CELL CT 3.98 /CUMM (4.20-5.40); WHITE BLOOD CELL COUNT 5.6 /CUMM (4.8-10.8)
--- NOTE | 2018-04-21 19:14 | ED GENERAL ADULT ---
See Addendum History of Present Illness General Chief Complaint: Altered Mental Status Stated Complaint: BIBA FOR AMS Source: patient, family Exam Limitations: no limitations Vital Signs & Intake/Output Vital Signs & Intake/Output Vital Signs Date Time Temp Pulse Resp B/P B/P Pulse O2 O2 Flow FiO2 Mean Ox Delivery Rate 04/22 0047 Room Air 04/22 0000 93 Room Air 04/22 0000 98.2 70 22 123/60 93 Room Air 04/21 2312 98.3 68 18 130/74 98 Room Air 04/21 2135 96 Room Air Room Air 04/21 2135 98.0 67 18 132/72 98 Room Air Room Air 04/21 1838 97.8 67 18 130/74 97 Room Air ED Intake and Output 04/22 0000 04/21 1200 Intake Total Output Total 60 Balance -60 Output, Urine 60 Patient 170 lb Weight Weight Reported by Patient Measurement Method Allergies Coded Allergies: No Known Allergies (12/16/17) Triage Note: PT BIBA FROM HOME C/C CONFUSION X WEEKS. COUGH NOTED, STATES HAS HX OF ?BRONCHITIS. AFEBRILE. EMS REPORTS PT HAS BEEN HALLUCINATING. Triage Nurses Notes Reviewed? yes Onset: Abrupt Duration: week(s): (1), changing over time, continues in ED, getting worse Timing: single episode today Injury Environment: home Severity: moderate, severe No Modifying Factors: none LMP (ages 10-50): post menopausal : No Patient currently breastfeeds: No HPI: 87-year-old female history of coronary artery disease hypertension hyperlipidemia mitral regurgitation pacemaker present evaluation of altered mental status. According to the family over the past week patient has been confused and altered. She has been having conversations with people that aren't there. She's been hallucinating and seeing things that aren't there. Patient offers no complaints other than some cough and congestion. She has no pain. No chest pain or shortness of breath. Several weeks ago patient had fallen on her left knee and his been swollen ever since. No redness patient is able to move the knee. No numbness or tingling no hip pain. Patient does not walk. She hasn't walked since the past few months after she was admitted to the hospital and then a rehabilitation center. Spends most of her time in bed. Family reports patient has not been sleeping at night. She spends most of her time at night talking to herself. She has not been diagnosed with dementia previously. Patient is alert and oriented 2. History is limited secondary to mental status. Most of the history comes from family members (Jerel Farris) Reconcile Medications Aspirin (Ecotrin*) 81 MG TABLET.DR 1 TAB PO DAILY STROKE PREVENTION . Carvedilol 6.25 MG TABLET 1 TAB PO BID HEART (Reported) Clopidogrel Bisulfate (Clopidogrel) 75 MG TABLET 1 TAB PO DAILY HEART ( Reported) Furosemide 40 MG TABLET 1 TAB PO DAILY HEART (Reported) Linagliptin (Tradjenta) 5 MG TABLET 1 TAB PO DAILY DIABETES (Reported) Potassium Chloride 10 MEQ TAB.ER.PRT 1 TAB PO DAILY HEART (Reported) Rosuvastatin Calcium (Crestor) 40 MG TABLET 1 TAB PO DAILY HEART (Reported) (Omar WALKER,Adilson Orozco) Past History Travel History Traveled to [place] past 21 day No Medical History Any Pertinent Medical History? see below for history Neurological: NONE EENT: NONE Cardiovascular: CAD, hypertension, hyperlipidemia, mitral regurgitation Respiratory: NONE Gastrointestinal: NONE Hepatic: NONE Renal: NONE Musculoskeletal: NONE Psychiatric: NONE Endocrine: diabetes Blood Disorders: NONE History of MRSA: No History of VRE: No History of CDIFF: No Surgical History Surgical History: hysterectomy, PACEMAKER Psychosocial History Who do you live with Son What is your primary language Armenian Tobacco Use: Never used Family History Hx Contributory? No (Jerel Farris) Review of Systems Review of Systems Constitutional: Reports: no symptoms. EENTM: Reports: see HPI, nasal congestion. Respiratory: Reports: cough. Cardiovascular: Reports: no symptoms. GI: Reports: no symptoms. Genitourinary: Reports: no symptoms. Musculoskeletal: Reports: no symptoms. Skin: Reports: no symptoms. Neurological/Psychological: Reports: see HPI, anxiety, confusion. Hematologic/Endocrine: Reports: no symptoms. Immunologic/Allergic: Reports: no symptoms. All Other Systems: Reviewed and Negative (Jerel Farris) Physical Exam Physical Exam General Appearance: well developed/nourished, no apparent distress, alert, awake , obese Head: atraumatic, normal appearance Eyes: Bilateral: normal appearance, PERRL, EOMI. Ears, Nose, Throat: hearing grossly normal, nasal congestion Neck: normal inspection, supple, full range of motion Respiratory: normal breath sounds, chest non-tender, no respiratory distress, lungs clear Cardiovascular: regular rate/rhythm, normal peripheral pulses Peripheral Pulses: 2+ radial (R), 2+ radial (L) Gastrointestinal: soft, non-tender Back: normal inspection, normal range of motion, no vertebral tenderness Extremities: normal range of motion, no edema, THE RIGHT KNEE IS DIFFUSELY SWOLLEN. tHERE IS NO TENDERNESS TO PALPATION. tHERE IS SOME ANTERIOR ECCHYMOSIS. nO ERYTHEMA. fULL RANGE OF MOTION INTACT. Neurologic/Psych: no motor/sensory deficits, awake, alert, normal gait, PATIENT IS ALERT AND ORIENTED TO PERSON AND PLACE ONLY Skin: intact, normal color, warm/dry Lymphatic: no anterior cervical jose armando Core Measures ACS in differential dx? No CVA/TIA Diagnosis: No Sepsis Present: No Sepsis Focused Exam Completed? No (Vitaly WILSON,Jerel) Progress Differential Diagnoses I considered the following diagnoses in my evaluation of the patient: [Sepsis, UTI, pyelonephritis, pneumonia CHF, COPD, acute coronary syndrome, electrolyte abnormality, dehydration] Plan of Care: Orders Procedure Date/time Status Nothing by Mouth 04/22 B Active TROPONIN LEVEL 04/22 800 Active EKG 04/22 800 Active CBC WITHOUT DIFFERENTIAL 04/22 06 Active BASIC ELECTROLYTES PLUS BUN&CR 04/22 06 Active Wound Care/Dressing 04/22 015 Active Weight 04/22 015 Active VTE Mechanical Prophylaxis 04/22 015 Active Vital Signs 04/22 015 Active Turn and Reposition 04/22 015 Active Drains/Tubes 04/22 015 Active Teach/Educate 04/22 015 Active Skin Integrity Protocol 04/22 015 Active Skin/Pressure Ulcer Assess (Sk 04/22 155 Active Precautions 04/22 155 Active Pain Treatment and Response 04/22 155 Active Nutritional Intake, Monitor 04/22 155 Active Isolation 04/22 015 Active CIWA 04/22 015 Active Patient Care Conference 04/22 015 Active Activity/Ambulation 04/22 015 Active TROPONIN LEVEL 04/22 0100 Complete EKG 04/22 010 Active VRE ACTIVE SURVIELLANCE 04/21 2344 Active MRSA SCREENING 04/21 234 Active LOWER RESPIRATORY CULTURE 04/21 231 Active SWALLOW EVALUATION 04/21 2315 Active TRC EVALUATION (GEN) 04/21 2315 Active PT Evaluate & Treat 04/21 2315 Active Pathway - chart 04/21 2315 Active House Staff 07/08 2315 Active Code Status 07/08 2315 Active Add-on Test (ER Only) 04/21 2304 Active Patient Data 04/21 2157 Active Intake & Output 04/21 2135 Active Saline Lock 04/21 2133 Active Misc Message 04/21 2133 Active ED Holding Orders 04/21 2133 Active Admit to inpatient 04/21 2133 Active Vital Signs 04/21 2133 Active Code Status 04/21 2133 Complete URINE DRUGS OF ABUSE 04/21 2126 Complete Straight Cath 04/21 1949 Active Add-on Test (ER Only) 04/21 1938 Active Add-on Test (ER Only) 04/21 193 Active Add-on Test (ER Only) 04/21 185 Active URINALYSIS 04/21 185 Complete EKG 04/21 185 Active TROPONIN LEVEL 04/21 184 Complete PARTIAL THROMBOPLASTIN TIME 04/21 184 Complete PROTHROMBIN TIME 04/21 184 Complete LACTIC ACID 04/21 184 Complete B-TYPE NATRIURETIC PEP (BNP) 04/21 184 Complete COMPREHENSIVE METABOLIC PANEL 04/21 184 Complete CBC WITHOUT DIFFERENTIAL 04/21 184 Complete VTE Mechanical Prophylaxis 04/21 UNK Active Vital Signs 04/21 UNK Active Intake & Output 04/21 UNK Active Hemoccult 04/21 UNK Active FingerStick- Glucose 04/21 UNK Active Activity/Ambulation 04/21 UNK Active Current Medications Sig/Lucia Start time Last Medication Dose Stop Time Status Admin Atorvastatin Calcium 80 MG 1700 04/22 1700 AC (Lipitor) Aspirin Buffered 81 MG DAILY 04/22 900 AC (Ecotrin) Carvedilol 6.25 MG BID 04/22 900 AC (Coreg) Clopidogrel Bisulfate 75 MG DAILY 04/22 900 AC (Plavix) Furosemide 40 MG DAILY 04/22 900 CAN (Lasix) Furosemide 40 MG DAILY 04/22 900 UNVr (Lasix) Heparin Sodium 5,000 UNIT Q8 04/22 0600 AC (Porcine) Insulin Human Regular 0 Q6 04/21 2359 AC 04/22 (NovoLIN R) 0031 Laboratory Tests 04/22/18 0400: Sodium Pending, Potassium Pending, Chloride Pending, Carbon Dioxide Pending, Anion Gap Pending, BUN Pending, Creatinine Pending, BUN/Creatinine Ratio Pending , CBC w Diff Pending, WBC Pending, RBC Pending, Hgb Pending, Hct Pending, MCV Pending, MCH Pending, MCHC Pending, RDW Pending, Plt Count Pending, MPV Pending 04/22/18 0055: Troponin I 0.29 *H 04/21/18 2233: Methadone Screen Cancelled, Barbiturate Screen Cancelled, Ur Phencyclidine Scrn Cancelled, Amphetamines Screen Cancelled, U Benzodiazepines Scrn Cancelled, Urine Cocaine Screen Cancelled, Urine Cannabis Screen Cancelled 04/21/18 2126: Urine Opiates Screen > 4000.00 H, Methadone Screen 53, Barbiturate Screen < 60, Ur Phencyclidine Scrn 8.80, Amphetamines Screen < 100, U Benzodiazepines Scrn < 85, Urine Cocaine Screen < 50, Urine Cannabis Screen < 5.00, Urinalysis MANY H, Urine Color YEL, Urine Clarity CLDY H, Urine pH 6.0, Ur Specific [place] 1.025, Urine Protein 100 H, Urine Ketones NEG, Urine Nitrite NEG, Urine Bilirubin NEG, Urine Urobilinogen 0.2, Ur Leukocyte Esterase NEG, Ur Microscopic SEDIMENT EXAMINED, Urine RBC RARE, Urine WBC RARE, Ur Epithelial Cells FEW, Urine Bacteria FEW H, Hyaline Casts 1-3 H, Granular Casts 3-5 H, Urine Mucus FEW, Urine Hemoglobin TRACE-INTACT, Urine Glucose NEG 04/21/18 1846: Anion Gap 16, Estimated GFR 21 L, BUN/Creatinine Ratio 17.7, Glucose 127 H, Lactic Acid 1.2, Calcium 9.4, Total Bilirubin 0.6, AST 26, ALT 27, Alkaline Phosphatase 59, Troponin I 0.26 *H, Rqw-B-Prouaodhock Pept 56444 H, Total Protein 6.7, Albumin 3.9, Globulin 2.8, Albumin/Globulin Ratio 1.4, PT 15.9 H, INR 1.45 H, APTT 30, CBC w Diff NO MAN DIFF REQ, RBC 3.98 L, MCV 89.6, MCH 29.3, MCHC 32.7 L, RDW 16.8 H, MPV 8.4, Gran % 68.5, Lymphocytes % 16.5 L, Monocytes % 12.3 H, Eosinophils % 2.1, Basophils % 0.6, Absolute Granulocytes 3.8, Absolute Lymphocytes 0.9 L, Absolute Monocytes 0.7 H, Absolute Eosinophils 0.1, Absolute Basophils 0 Microbiology 07/08 2359 UPPER RESP: Surveillance Culture - RECD 04/21 2359 GI: Surveillance Culture - RECD 04/21 2319 LOWER RESP: Respiratory Culture - ORD 04/21 2319 LOWER RESP: Gram Stain - ORD Patient is here with altered mental status. According to the family she has been confused and hallucinating over the past week or so. Patient herself offers no complaints. She did report a fall with right knee strike. This occurred several weeks ago the knee is diffusely swollen. No signs of septic arthritis. Labs EKG head CT chest x-ray ordered. Patient has a positive troponin of 0.26. Her EKG shows a ventricular paced rhythm. There is not appear to be any acute changes on this EKG. Patient denies chest pain or shortness of breath. Chest x-ray is negative for pulmonary edema. Creatinine is 2.2 which is slightly higher than usual[place] [address]. Urine is not showing signs of infection but indicates the patient is very dry with hyaline casts and granular casts. A small fluid bolus was ordered. Family reports patient has not been eating or drinking. Attempted to call cardiology multiple times without a call back. Patient will be admitted to the hospital for further evaluation and treatment case discussed with Dr. Nelson he agrees. Dr. Nelson admitted the patient. Diagnostic Imaging: Viewed by Me: Radiology Read. Discussed w/RAD: Radiology Read. Radiology Impression: PATIENT: EROS MCGOWAN PRESENT AGE : 87 PATIENT ACCOUNT NO: [id number] : [birth year] LOCATION: [facility] ORDERING PHYSICIAN: Jerel WILSON SERVICE DATE: 04/21/18 EXAM TYPE: RAD - XRY- KNEE COMPLETE LEFT EXAMINATION: XR KNEE, LEFT CLINICAL INFORMATION: Left knee pain and swelling after fall. COMPARISON: None TECHNIQUE: Four views of the left knee. FINDINGS: There is severe narrowing of the medial and lateral knee joint spaces. Narrowing of the patellofemoral joint space. Chondrocalcinosis is noted. No evidence of subarticular cystic changes. Mild subarticular sclerosis. There is no evidence of acute fracture or dislocation. There is diffuse osseous demineralization is noted. There is small suprapatellar joint effusion. IMPRESSION: Diffuse osteopenia. No evidence of acute fracture or dislocation. Small suprapatellar joint effusion. 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 DICTATED BY: Jimenez Carpenter MD DATE/TIME DICTATED:04/21/182038 DRY KILN LOADER:JERRY DATE/TIME TRANSCRIBED:2038 CONFIDENTIAL, DO NOT COPY WITHOUT APPROPRIATE AUTHORIZATION. < Electronically signed in Other Vendor System> SIGNED BY: Jimenez Carpenter MD 06/01 CXR Impression: PATIENT: EROS MCGOWAN PRESENT AGE: 87 PATIENT ACCOUNT NO: [id number] : [birth year] LOCATION: [facility] ORDERING PHYSICIAN: Jerel WILSON SERVICE DATE: 04/21/18 EXAM TYPE: RAD - XRY-PORTABLE CHEST XRAY EXAMINATION: XR PORTABLE CHEST CLINICAL INFORMATION: Altered mental status. COMPARISON: 02/03/2018 TECHNIQUE: Portable frontal view of the chest was obtained. FINDINGS: Lung volumes are low. Pacemaker leads terminate in the right atrium and right ventricle. EKG leads overlie the chest. Cardiac silhouette remains enlarged. There is pulmonary venous congestion. Trace right pleural effusion No consolidation or pneumothorax are identified. No pulmonary edema. Osteoarthritis is present at the acromioclavicular and glenohumeral joints with chronic bilateral rotator cuff tears. IMPRESSION: Cardiomegaly with pulmonary venous congestion and trace right pleural effusion. No pulmonary edema. Low lung volumes. DICTATED BY: Frankie Cervantes MD DATE/TIME DICTATED:04/21/181957 DRY KILN LOADER:JERRY DATE/TIME TRANSCRIBED:04/21/181957 CONFIDENTIAL, DO NOT COPY WITHOUT APPROPRIATE AUTHORIZATION. Initial ED EKG: ventricle paced complexes, interventricular conduction delay minimal inferior ST depressions (Jerel Farris) Departure Departure Disposition: STILL A PATIENT Condition: Stable Clinical Impression Primary Impression: Elevated troponin Referrals: Melvin Kyle MD (PCP/Family) Departure Forms: Customer Survey General Discharge Information Admission Note Spoke With: Ish Funez MD Documentation of Exam: Documentation of any treatments & extenuating circumstances including Concerns Regarding Discharge (functional status, medication knowledge or non-compliance, living conditions, etc.) that warrant an admission rather than observation: [ Serial labs, still EKGs, cardiology, telemetry, critical care, gentle IV hydration/diuresis, echocardiogram] (Jerel Farris) PA/VICE PRESIDENT OF INSTRUCTION Co-Sign Statement Statement: ED Attending supervision documentation- [x] I saw and evaluated the patient. I have also reviewed all the pertinent lab results and diagnostic results. I agree with the findings and the plan of care as documented in the PA's/VICE PRESIDENT OF INSTRUCTION's documentation. 04/21/19, 20:43... pt with +troponin, persistent from prior studies.... no chest pain, but with recent onset of confusion/mental status change... pt presently comfortable. [] I have reviewed the ED Record and agree with the PA's/VICE PRESIDENT OF INSTRUCTION's documentation. [] Additions or exceptions (if any) to the PAs/VICE PRESIDENT OF INSTRUCTION's note and plan are summarized below: [] (Omar WALKER,Adilson Orozco) Critical Care Note Critical Care Note Critical Care Time: non-applicable (Jerel Farris)
--- NOTE | 2018-04-21 20:07 | RADIOLOGY REPORT ---
EXAMINATION: XR PORTABLE CHEST CLINICAL INFORMATION: Altered mental status. COMPARISON: 02/03/2018 TECHNIQUE: Portable frontal view of the chest was obtained. FINDINGS: Lung volumes are low. Pacemaker leads terminate in the right atrium and right ventricle. EKG leads overlie the chest. Cardiac silhouette remains enlarged. There is pulmonary venous congestion. Trace right pleural effusion No consolidation or pneumothorax are identified. No pulmonary edema. Osteoarthritis is present at the acromioclavicular and glenohumeral joints with chronic bilateral rotator cuff tears. IMPRESSION: Cardiomegaly with pulmonary venous congestion and trace right pleural effusion. No pulmonary edema. Low lung volumes.
[2018-04-21 20:08] LABS: PT 15.9 SEC (9.4-12.5); PTT 30 SEC (25-37)
--- NOTE | 2018-04-21 20:45 | RADIOLOGY REPORT ---
EXAMINATION: XR KNEE, LEFT CLINICAL INFORMATION: Left knee pain and swelling after fall. COMPARISON: None TECHNIQUE: Four views of the left knee. FINDINGS: There is severe narrowing of the medial and lateral knee joint spaces. Narrowing of the patellofemoral joint space. Chondrocalcinosis is noted. No evidence of subarticular cystic changes. Mild subarticular sclerosis. There is no evidence of acute fracture or dislocation. There is diffuse osseous demineralization is noted. There is small suprapatellar joint effusion. IMPRESSION: Diffuse osteopenia. No evidence of acute fracture or dislocation. Small suprapatellar joint effusion. 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
--- NOTE | 2018-04-21 22:18 | CT SCAN REPORT ---
EXAMINATION: CT HEAD WITHOUT CONTRAST CLINICAL INFORMATION: Altered mental status. Confusion. COMPARISON: CT head 12/16/2017 TECHNIQUE: Contiguous axial imaging was performed from the skull base to vertex without intravenous administration of contrast. DLP: 624.87 mGy-cm FINDINGS: There is no evidence of acute intracranial hemorrhage or territorial infarction. No abnormal mass effect or midline shift is seen. Brush to white matter differentiation is well preserved. No extra-axial fluid collections are identified. The ventricles and sulci are age appropriate. There is mild global volume loss. There are bilateral periventricular and subcortical white matter patchy low attenuation changes similar to that seen on the previous study representing sequela of chronic microangiopathy. The osseous structures and soft tissues are normal. The mastoid air cells and visualized portions of the paranasal sinuses are well aerated. IMPRESSION: No acute intracranial pathology. [id number] white matter changes of chronic microangiopathy.
--- NOTE | 2018-04-21 23:11 | History & Physical ---
Johnie Lowe 04/21/18 4267: General Information and HPI MD Statement: I have seen and personally examined YVETTE SANFORD and documented this H&P. The patient is a 87 year old F who presented with a patient stated chief complaint of []. 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 Patient's son states that she lives with him for the past year and that she has been experiencing hallucinations in which she frequently talks to individuals not present in the room. Patient was last normal about 3 weeks ago. Patient is also noted to experience anxiety and insomnia at night, on average only sleeping an hour per night. Patient is noted to mostly spend her time at home in her recliner. Patient is noted to have weight gain of about 20 pounds over 4 weeks, anxiety, and decreased appetite & thirst. Patient's son denies recollecting any symptoms of chest pain, dizziness, lightheadedness, weakness, and change in bowel movements in the patient. Patient is also noted to have a right-sided hand tremor that can involve more of her upper extremity on occasion. Patient also had been to rehab in January for a 2 week duration for which she left wheelchair dependent after first starting therapy with the use of a walker. Patient, however, is noted to have fallen in the past 4-5 weeks after losing balance with her walker and brusing her knees. Patient did not lose consciousness with this fall episode. Patient follows up with her PCP Dr. Melvin Kyle and Business Objects Consultant is Dr. Fredy Vera. Past History Travel History Traveled to [place] past 21 day No Medical History Neurological: NONE EENT: NONE Cardiovascular: CAD, hypertension, hyperlipidemia, mitral regurgitation Respiratory: NONE Gastrointestinal: NONE Hepatic: NONE Renal: NONE Musculoskeletal: NONE Psychiatric: NONE Endocrine: diabetes Blood Disorders: NONE History of MRSA: No History of VRE: No History of CDIFF: No Surgical History Surgical History: hysterectomy, PACEMAKER Past Family/Social History Psychosocial History Where do you live? Home (dependent on son) Who Do You Live With? child Functional Ability Ambulation: walker Review of Systems Review of Systems Constitutional: Denies: fever, malaise, weakness. EENTM: Denies: visual changes. Cardiovascular: Denies: chest pain, palpitations. Respiratory: Reports: cough. Denies: short of breath. GI: Denies: abdominal pain, diarrhea. Genitourinary: Denies: dysuria, frequency. Musculoskeletal: Reports: joint pain. Skin: Denies: no symptoms. Exam & Diagnostic Data Last 24 Hrs of Vital Signs/I&O Vital Signs Date Time Temp Pulse Resp B/P B/P Pulse O2 O2 Flow FiO2 Mean Ox Delivery Rate 04/21 2312 98.3 68 18 130/74 98 Room Air 04/21 2135 96 Room Air Room Air 04/21 2135 98.0 67 18 132/72 98 Room Air Room Air 04/21 1838 97.8 67 18 130/74 97 Room Air Intake & Output 04/22 0800 04/22 0000 04/21 1600 Intake Total Output Total 60 Balance -60 Output, Urine 60 Patient 170 lb Weight Weight Reported by Patient Measurement Method Physical Exam General Appearance somnolent for majority of exam however can be awakened; AA0x2 Skin No Rashes HEENT Atraumatic, PERRLA Neck Supple, No JVD Lymphatic Cervical nl Cardiovascular Normal S1, Normal S2 Lungs crackles in upper lung [place] Abdomen Normal Bowel Sounds, Soft Neurological Strength at 5/5 X4 Ext, Normal Tone Extremities 2+ pitting edema Vascular Normal Pulses Assessment/Plan Assessment: Assessment: * Unstable Angina, ACS * Acute on Chronic Congestive Heart Failure * Acute Encephalopathy, assoc. Hallucinations * h/o CAD * h/o Type 2 DM * h/o HLD Plan * Acute Encephalopathy - Acute, fluctuating change in mental status and altered level of awareness - Likely secondary to underlying psychiatric disturbances (hallucinations); fairly non-specific urinalysis to specifiy urinary tract infection as a cause * Unstable Angina - Admit to ICU for monitoring and assessment of vitals - AM Cardiology Consult - Recommendation for Heparin as anti-thrombotic therapy; ASA and Clopidogrel to prevent any subsequent cardiac ischemia complications - Head CT: No acute intracranial pathology. [id number] white matter changes of chronic microangiopathy. - DVT PPx. * Acute on Chronic Congestive Heart Failure - Awaiting on recommendation for ECHO to reevaluate functional and structural capacity of the heart muscle - Lasix IV 40 mg for management of fluid retention - CXR: Cardiomegaly with pulmonary venous congestion and trace right pleural effusion. No pulmonary edema. Low lung volumes. - Previous ECHO 12/17/17 Normal LV chamber size with moderate concentric LVH. The estimated LVEF is 45%. There is global hypokinesis. Mildly calcified mitral valve leaflets and annulus. There is normal leaflet opening. There is mild to moderate mitral regurgitation without prolapse. There is mild aortic insufficiency. There is moderate tricuspid regurgitation. The estimated PA systolic pressure is 45 mmHg As Ranked By This Provider Problem List: 1. Unstable angina 2. Altered mental status 3. CHF (congestive heart failure) 4. Coronary artery disease 5. Hyperlipidemia Core Measures/Misc (07/01) Acute Coronary Syndrome ACS Diagnosis: Yes Congestive Heart Failure Congestive Heart Failure Diagnosis Yes Cerebrovascular Accident CVA/TIA Diagnosis: No VTE (View Protocol) VTE Risk Factors Acute Medical Illness No Mechanical VTE Prophylaxis d/t N/A MechProphylax Ordered No VTE Pharm Prophylaxis d/t NA PharmProphylax ordered Sepsis (View protocol) Sepsis Present: No If YES complete Sepsis Event Note If YES complete Sepsis Event Note [place] 04/22/18 0145: General Information and HPI MD Statement: I have seen and personally examined YVETTE SANFORD and documented this H&P. The patient is a 87 year old F who presented with a patient stated chief complaint of []. Allergies/Medications Allergies: Coded Allergies: No Known Allergies (12/16/17) Home Med list Aspirin (Ecotrin*) 81 MG TABLET.DR 1 TAB PO DAILY STROKE PREVENTION . Carvedilol 6.25 MG TABLET 1 TAB PO BID HEART (Reported) Clopidogrel Bisulfate (Clopidogrel) 75 MG TABLET 1 TAB PO DAILY HEART ( Reported) Furosemide 40 MG TABLET 1 TAB PO DAILY HEART (Reported) Linagliptin (Tradjenta) 5 MG TABLET 1 TAB PO DAILY DIABETES (Reported) Potassium Chloride 10 MEQ TAB.ER.PRT 1 TAB PO DAILY HEART (Reported) Rosuvastatin Calcium (Crestor) 40 MG TABLET 1 TAB PO DAILY HEART (Reported) Past History Medical History Neurological: Hallucinations Cardiovascular: CAD, hypertension, hyperlipidemia, mitral regurgitation Endocrine: diabetes Surgical History Surgical History: hysterectomy, PACEMAKER Past Family/Social History Psychosocial History Smoking Status: Former Smoker ETOH Use: denies use Illicit Drug Use: denies illicit drug use Employment History Employment Retired Review of Systems Comments 12 point review of systems as noted by psychology intern. Exam & Diagnostic Data Last 24 Hrs of Vital Signs/I&O Vital Signs Date Time Temp Pulse Resp B/P B/P Pulse O2 O2 Flow FiO2 Mean Ox Delivery Rate 04/22 0047 Room Air 04/21 2312 98.3 68 18 130/74 98 Room Air 04/21 2135 96 Room Air Room Air 04/21 2135 98.0 67 18 132/72 98 Room Air Room Air 04/21 1838 97.8 67 18 130/74 97 Room Air Intake & Output 04/22 0800 04/22 0000 04/21 1600 Intake Total Output Total 60 Balance -60 Output, Urine 60 Patient 170 lb Weight Weight Reported by Patient Measurement Method Physical Exam General Appearance Alert, Oriented X3, No Acute Distress HEENT Atraumatic, PERRLA, EOMI Neck Supple, No JVD Lymphatic Axillary nl, Cervical nl Cardiovascular Regular Rate, Normal S1, Normal S2 Lungs crackles in upper lung [place] Abdomen Normal Bowel Sounds, Soft Extremities 2+ pitting edema Last 24 Hrs of Labs/Jose Juan: Laboratory Tests 04/22/18 0055: Troponin I Pending 04/21/18 2233: Methadone Screen Cancelled, Barbiturate Screen Cancelled, Ur Phencyclidine Scrn Cancelled, Amphetamines Screen Cancelled, U Benzodiazepines Scrn Cancelled, Urine Cocaine Screen Cancelled, Urine Cannabis Screen Cancelled 04/21/186: Urine Opiates Screen > 4000.00 H, Methadone Screen 53, Barbiturate Screen < 60, Ur Phencyclidine Scrn 8.80, Amphetamines Screen < 100, U Benzodiazepines Scrn < 85, Urine Cocaine Screen < 50, Urine Cannabis Screen < 5.00, Urinalysis MANY H, Urine Color YEL, Urine Clarity CLDY H, Urine pH 6.0, Ur Specific [place] 1.025, Urine Protein 100 H, Urine Ketones NEG, Urine Nitrite NEG, Urine Bilirubin NEG, Urine Urobilinogen 0.2, Ur Leukocyte Esterase NEG, Ur Microscopic SEDIMENT EXAMINED, Urine RBC RARE, Urine WBC RARE, Ur Epithelial Cells FEW, Urine Bacteria FEW H, Hyaline Casts 1-3 H, Granular Casts 3-5 H, Urine Mucus FEW, Urine Hemoglobin TRACE-INTACT, Urine Glucose NEG 04/21/18 1846: Anion Gap 16, Estimated GFR 21 L, BUN/Creatinine Ratio 17.7, Glucose 127 H, Lactic Acid 1.2, Calcium 9.4, Total Bilirubin 0.6, AST 26, ALT 27, Alkaline Phosphatase 59, Troponin I 0.26 *H, [id number]-H-Xczwsqpoess Pept 40129 H, Total Protein 6.7, Albumin 3.9, Globulin 2.8, Albumin/Globulin Ratio 1.4, PT 15.9 H, INR 1.45 H, APTT 30, CBC w Diff NO MAN DIFF REQ, RBC 3.98 L, MCV 89.6, MCH 29.3, MCHC 32.7 L, RDW 16.8 H, MPV 8.4, Gran % 68.5, Lymphocytes % 16.5 L, Monocytes % 12.3 H, Eosinophils % 2.1, Basophils % 0.6, Absolute Granulocytes 3.8, Absolute Lymphocytes 0.9 L, Absolute Monocytes 0.7 H, Absolute Eosinophils 0.1, Absolute Basophils 0 Microbiology 04/21 2359 UPPER RESP: Surveillance Culture - RECD 04/21 2359 GI: Surveillance Culture - RECD 04/21 2319 LOWER RESP: Respiratory Culture - ORD 04/21 2319 LOWER RESP: Gram Stain - ORD Core Measures/Misc (07/01) Sepsis (View protocol) If YES complete Sepsis Event Note If YES complete Sepsis Event Note Attending MD Review Statement Attending Statement Attending MD Statement: examined this patient, discuss w/resident/PA/ROLLER TURNER, agreed w/resident/PA/ROLLER TURNER, amended to note Attending Assessment/Plan: This patient is an 87-year-old white female with a past medical history for coronary artery disease (non-ST segment elevation myocardial infarction in 2010, status post bare metal stent to the LAD), mitral regurgitation, dilated cardiomyopathy (LVEF 45%), hyperlipidemia and chronic congestive heart failure secondary to systolic dysfunction, and 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 Patient was last normal about 3 weeks ago. Patient is noted to have weight gain of about 20 pounds over 4 weeks, anxiety, and decreased appetite & thirst. Patients BNP is over 16,000 and her troponin is 0.26. The patient is being treated for acute coronary syndrome. NikolasCaleboswaldo 04/22/18 0558: Core Measures/Misc (07/01) Sepsis (View protocol) If YES complete Sepsis Event Note If YES complete Sepsis Event Note Resident Review Statement Resident Statement: examined this patient, discussed with psychology intern, agreed with psychology intern Other Findings: Ms Sanford is an 87 year old woman w/ a PMHx of ? dementia(no formal diagnosis made ), type 2 diabetes, CAD (NSTEMI dx'ed 2010 s/p BMS to LAD), MR, and ischemic, dilated cardiomyopathy, HLD and HFpEF (LVEF 35%), bradycardia s/p Medtronic pacemaker implant was brought in with a chief concern apartment in mental status that started approximately 3 wks ago, which worsened in the last few days that brought the pt to the hospital. History was obtained from the pts son, and the ROS was obtained from the pt. The family reported hallucinations, and occassional periods of lucid intervals during the day. Reported occasional non productive cough. No chest pain, dyspnea. No palpitations. Reported a mechanical fall injuring her left knee. No neurological symptoms reported. The patient usually does not walk at baseline, and spends most of the time in the bed. Reported weight gain of dmitriy 20 pounds in the last few months, and the circular knitter helper was adjusting her furosemide dose. Reported no changes in medications, or use of opiates/benzos. At the time of admission heparin temperature 97.8, pulse rate 67, respiration 18 , blood pressure 1:30/74, pulse ox 97% on room air. General Appearance: well developed/nourished, no apparent distress, alert, awake , obese;Head: atraumatic, normal appearance, Eyes:Bilateral: normal appearance, PERRL, EOMI. Ears, Nose, Throat: hearing grossly normal, nasal congestionNeck: normal inspection, supple, full range of motion Respiratory: normal breath sounds, chest non-tender, no respiratory distress, lungs clearCardiovascular: regular rate/rhythm, normal peripheral pulsesPeripheral Pulses:2+ radial (R), 2+ radial (L)Gastrointestinal: soft, non- tenderBack: normal inspection, normal range of motion, no vertebral tendernessExtremities: normal range of motion, no edema, R knee swelling but no erythema, or tenderness. Echymoses from the fall ? Neurologic/Psych: no motor/ sensory deficits, awake, alert, normal gait, AAOx3. Skin: intact, normal color, warm/dry ; Lymphatic: no anterior cervical adenopathy. Pedal edema 3+. EKG reveals ventricular paced rhythm. Pertinent lab findings- W BC 5.6, hemoglobin 11.7, hematocrit 35.7, platelet count 194. Sodium 142, potassium 3.9, bicarbonate 24. Anion gap 16 BUN 39, creatinine 2.2 (baseline 1.8) Lactic acid 1.2, calcium 9.4 AST 26, ALT 27, alkaline phosphatase 59. Troponin I-0.26 ProBNP 54202. (No previous labs to compare) INR 1.45 Urinalysis protein 100, nitrite negative leukocyte esterase negative. CT scan head-No acute intracranial pathology. [id number]-qaillluy white matter changes of chronic microangiopathy.Diffuse osteopenia. No evidence of acute fracture or dislocation. Small suprapatellar joint effusion. 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 Chest i-myp-Znkptsuqqoob with pulmonary venous congestion and trace right pleural effusion. No pulmonary edema.ow lung volumes. Previous echocardiogram done in 12/2017- Normal LV chamber size with moderate concentric LVH. The estimated LVEF is 45%. There is global hypokinesis. Mildly calcified mitral valve leaflets and annulus. There is normal leaflet opening. There is mild to moderate mitral regurgitation without prolapse. There is mild aortic insufficiency. There is moderate tricuspid regurgitation. The estimated PA systolic pressure is 45 mmHg. Problem list: #1 altered mental status #2 cardiac and pulmonary edema #3 elevated troponin #4 history of diabetes #5 history of coronary artery disease #5 Abnormal toxicology profile w/ high opiates #7 Suprapatellar joint effusion w/ no s/s of infectious joint. Etiology in this case is likely elevated troponins with no clear symptoms of chest pain but has AMS w/ elevated cardiac enzymes with positive cardiac risk factors previous h/o of CAD could be type2 SD, but SD should be ruled out. She should be monitored closely given her CAD, and her increased troponins could be due to decreased perfusion. Acute decompensation of CHF could be playing a role, for which she needs diuresis. In regards to her high opiates in drug screen makes me think, that these could be playing into the AMS. She is not prescribed any opiates as per the family. She should be monitored for any fever, or erythema of knee to monitor for any septic joint. Plan: # admit to telemetry for cardiac monitoring of any arrythmias. # non enteric coated aspirin 325 mg stat and daily aspirin+plavix and Atorvastatin 80mg daily. # serial electrocardiograms, cardiac enzymes every 8 hours # 2D Echo # Continue carvedilol by mouth. # IV heparin after conferring with cardiology Dr Ingram. Giancarlo negative. # discuss early intervention with cardiac catheterization, if pt develops uncontrolled angina, dynamic EKG changes. # check thyroid function, utox, vitami B12. # Serial EKGs and trops. # Insulin slidng scale. Accuchecks. #Monitor for any fever, or erythema of knee. # Swallow eval. NPO # Consider starting ACEi ( discuss w/ the restaurant managing partner) Checklist: #1 Central line- none #2 Arterial line none #3 Desouza catheter-none #4 Rectal tube-none #5 NG tube-none #6 IV/peripheral line-04/21 #7 IV drips- IV heparin #8 Vent settings none. #9 pressors- none.
[2018-04-22] VITALS: BP 123/60
[2018-04-22 04:59] LABS: ABSOLUTE BASOPHIL COUNT 0.1 /CUMM (0.0-0.2); ABSOLUTE EOSINOPHIL COUNT 0.2 /CUMM (0.0-0.7); ABSOLUTE GRANULOCYTE CT 3.7 /CUMM (1.4-6.5); ABSOLUTE MONOCYTE COUNT 0.6 /CUMM (0.10-0.60); GRANULOCYTE % 66.5 % (42.2-75.2); HEMATOCRIT 34.4 % (37-47); MEAN CORPUSCULAR HGB 29.3 PG (27.0-31.0); MEAN CORPUSCULAR HGB CONC 32.6 G/DL (33.0-37.0); MEAN PLATELET VOLUME 8.7 FL (7.4-10.4); PLATELET COUNT 190 /CUMM (130-400); RBC DISTRIBUTION WIDTH 16.5 % (11.5-14.5); RED BLOOD CELL CT 3.83 /CUMM (4.20-5.40); WHITE BLOOD CELL COUNT 5.5 /CUMM (4.8-10.8)
--- NOTE | 2018-04-22 07:31 | PN- Housestaff ---
Paula WALKER,Thomas 04/22/1830: Subjective Follow-up For: NSTEMI altered mental status CKD CHF Subjective: patient was oriented to self and year, but not to place this morning offering no complaints vital signs stable in no apparent respiratory distress or supplemental oxygen requirement no overnight events troponins trending up started on heparin gtt Review of Systems Constitutional: Reports: see HPI. Objective Last 24 Hrs of Vital Signs/I&O Vital Signs Date Time Temp Pulse Resp B/P B/P Pulse O2 O2 Flow FiO2 Mean Ox Delivery Rate 04/22 1200 94 Room Air Room Air 04/22 1016 94 Room Air 04/22 1012 Room Air 04/22 1004 66 110/68 04/22 0800 97.1 84 24 132/70 93 Room Air Room Air 04/22 0800 93 Room Air Room Air 04/22 0047 Room Air 04/22 0000 93 Room Air 04/22 0000 98.2 70 22 123/60 93 Room Air 04/21 2312 98.3 68 18 130/74 98 Room Air 04/21 2135 96 Room Air Room Air 04/21 2135 98.0 67 18 132/72 98 Room Air Room Air 04/21 1838 97.8 67 18 130/74 97 Room Air Intake & Output 04/22 1600 07/ 0800 / 0000 Intake Total Output Total 125 60 Balance -125 -60 Output, Urine 125 60 Patient 86.183 kg Weight Weight Bed scale Measurement Method Physical Exam General Appearance: Alert, Cooperative, No Acute Distress Cardiovascular: Regular Rate, Normal S1, Normal S2 Lungs: diminished bibasilarly Abdomen: Normal Bowel Sounds, Soft, No Tenderness, No Masses Extremities: No Clubbing, No Cyanosis, Normal Pulses, 2+ bilateral lower extremity pitting edema Current Medications: Current Medications Sig/Lucia Start time Last Medication Dose Route Stop Time Status Admin Aspirin 0 .STK-MED ONE 04/21 2104 DC PO Aspirin 325 MG ONCE ONE 04/21 1945 DC 04/21 PO 04/21 1946 2100 Aspirin Buffered 81 MG DAILY 04/22 900 AC 04/22 PO 1004 Atorvastatin Calcium 80 MG 1700 04/22 1700 AC PO Carvedilol 6.25 MG BID 04/22 900 AC 04/22 PO 1004 Clopidogrel Bisulfate 75 MG DAILY 04/22 900 AC 04/22 PO 1004 Furosemide 40 MG DAILY 07/09 0900 CAN PO Furosemide 40 MG DAILY 04/22 900 AC 04/22 IV 1005 Heparin Sodium 5,000 UNIT Q8 04/22 0600 DC (Porcine) SC Heparin Sodium 25,000 UNIT Q24H 04/22 0530 AC 04/22 (Porcine) IV 0636 Sodium Chloride 500 ML Heparin Sodium 4,000 UNIT ONCE ONE 04/22 0530 DC 04/22 (Porcine) IV 04/22 0531 0641 Insulin Human Regular 1 UNITS .STK-MED ONE 04/22 0028 DC IV 04/22 0029 Insulin Human Regular 0 Q6 04/21 2359 AC 04/22 SC 1146 Nystatin 1 RITESH TID 04/22 1400 AC TOP Sodium Chloride 250 ML BOLUS ONE 04/21 2145 DC IV 04/21 2244 Last 24 Hrs of Lab/Jose Juan Results Last 24 Hrs of Labs/Mics: Laboratory Tests 04/22/18 1137: APTT Pending 04/22/18 1105: Urine Color Pending, Urine Clarity Pending, Urine pH Pending, Ur Specific [place] Pending, Urine Protein Pending, Urine Ketones Pending, Urine Nitrite Pending, Urine Bilirubin Pending, Urine Urobilinogen Pending, Ur Leukocyte Esterase Pending, Ur Microscopic Pending, Urine Hemoglobin Pending, Urine Glucose Pending 04/22/18 0800: Troponin I 0.30 *H 04/22/18 0400: Anion Gap 14, Estimated GFR 21 L, BUN/Creatinine Ratio 17.3, CBC w Diff NO MAN DIFF REQ, RBC 3.83 L, MCV 90.0, MCH 29.3, MCHC 32.6 L, RDW 16.5 H, MPV 8.7, Gran % 66.5, Lymphocytes % 17.9 L, Monocytes % 11.6 H, Eosinophils % 3.0, Basophils % 1.0, Absolute Granulocytes 3.7, Absolute Lymphocytes 1.0 L, Absolute Monocytes 0.6, Absolute Eosinophils 0.2, Absolute Basophils 0.1 04/22/18 0055: Troponin I 0.29 *H 04/21/18 2233: Methadone Screen Cancelled, Barbiturate Screen Cancelled, Ur Phencyclidine Scrn Cancelled, Amphetamines Screen Cancelled, U Benzodiazepines Scrn Cancelled, Urine Cocaine Screen Cancelled, Urine Cannabis Screen Cancelled 04/21/186: Urine Opiates Screen > 4000.00 H, Methadone Screen 53, Barbiturate Screen < 60, Ur Phencyclidine Scrn 8.80, Amphetamines Screen < 100, U Benzodiazepines Scrn < 85, Urine Cocaine Screen < 50, Urine Cannabis Screen < 5.00, Urinalysis MANY H, Urine Color YEL, Urine Clarity CLDY H, Urine pH 6.0, Ur Specific [place] 1.025, Urine Protein 100 H, Urine Ketones NEG, Urine Nitrite NEG, Urine Bilirubin NEG, Urine Urobilinogen 0.2, Ur Leukocyte Esterase NEG, Ur Microscopic SEDIMENT EXAMINED, Urine RBC RARE, Urine WBC RARE, Ur Epithelial Cells FEW, Urine Bacteria FEW H, Hyaline Casts 1-3 H, Granular Casts 3-5 H, Urine Mucus FEW, Urine Hemoglobin TRACE-INTACT, Urine Glucose NEG 04/21/18 1846: Anion Gap 16, Estimated GFR 21 L, BUN/Creatinine Ratio 17.7, Glucose 127 H, Lactic Acid 1.2, Calcium 9.4, Total Bilirubin 0.6, AST 26, ALT 27, Alkaline Phosphatase 59, Troponin I 0.26 *H, [id number] Pept 86237 H, Total Protein 6.7, Albumin 3.9, Globulin 2.8, Albumin/Globulin Ratio 1.4, Vitamin B12 > 1000 H, Free T4 1.49, Total T3 0.89 L, TSH &T3 &Free T4 Intrp 4.910 H, PT 15.9 H, INR 1.45 H, APTT 30, CBC w Diff NO MAN DIFF REQ, RBC 3.98 L, MCV 89.6 , MCH 29.3, MCHC 32.7 L, RDW 16.8 H, MPV 8.4, Gran % 68.5, Lymphocytes % 16.5 L, Monocytes % 12.3 H, Eosinophils % 2.1, Basophils % 0.6, Absolute Granulocytes 3.8, Absolute Lymphocytes 0.9 L, Absolute Monocytes 0.7 H, Absolute Eosinophils 0.1, Absolute Basophils 0 Microbiology 04/22 1105 URINE ROUT: Urine Culture - RECD 04/21 2359 UPPER RESP: Surveillance Culture - RECD 04/21 2359 GI: Surveillance Culture - RECD 04/21 2319 LOWER RESP: Respiratory Culture - COLB 04/21 2319 LOWER RESP: Gram Stain - COLB Assessment/Plan Assessment: 87 year old female with past medical history significant for HLD, CAD s/p LAD stent and NE in 2010, HFrEF, CKD Stage IIIB, ischemic cardiomyopathy (LVEF 45%), bradyarrhythmia s/p PPM, and DM presented with 3 weeks of altered mental status, recent weight gain, and falls. Altered mental status: Dementia vs metabolic encephalopathy related to worsening heart failure No evidence of infection on urinalysis or chest x-ray Afebrile without leukocytosis B12 wnl, TSH elevated with mildly low T3 NCHCT-no hemorrhage or infarct, moderate white matter changes, chronic microangiopathy Progressive decline over past three weeks according to her son The patient has night time cough, choking, dyspnea, gets anxiety related to the cough Managed with antitussives w/ codeine which explains her positive opioids on urine toxicology HFrEF: Start intravenous diuresis with 40mg iv lasix daily, on 40mg po daily at home Desouza catheter placed Strict I/O's and daily weights proBNP 16,000 Echo 12/2017 Moderate concentric LVH. LVEF 45%. Global hypokinesis. Moderate TR, PASP 45 mmHg Elevated troponins Secondary to type II NSTEMI, likely underlying volume overload and CHF exacerbation causing increased myocardial demand Troponins trending up 0.26 -> 0.29 -> 0.30, continue to trend until peak Continue heparin gtt, titrate to goal PTT Cardiology consulted Obtain echocardiogram Continue aspirin, plavix, statin, and beta donna Lowest recent weight 167lbs Previously on losartan, stopped a few months ago by Dr. Kyle or Dr. Ramirez because of hypotension reportedly OTILIO with CKD: Stage IIIB Monitor renal function daily while on IV diuretics Creatinine was 1.3 on 02/08/18 from PCP Consider starting an ACEi/ARB for HTN, DM, HFrEF Systolic blood pressure 110s-130s DM: Accuchecks TIDAC, 90-110 Novolog sliding scale insulin PT evaluation Passed swallow eval-ground/thin DVT ppx-on heparin gtt DNR/DNI Problem List: 1. Elevated troponin Pain Ratin Pain Location: n/a Pain Goal: Pain 4 or less Pain Plan: prn Tomorrow's Labs & Rationales: troponin Mary Ellen WALKER,[facility] 04/22/18 0939: Attending Review Statement Attending Statement Attending MD Statement: examined this patient, discuss w/resident/PA/MANAGER DATA [employer]AREHOUSING, agreed w/resident/PA/MANAGER DATA WAREHOUSING, discussed with family, reviewed EMR data (avail), discussed with nursing, discussed with case mgmt, reviewed images, amended to note Attending Assessment/Plan: Ms Sanford is an 87 year old woman w/ a PMHx of ? 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 Ygrp-dp-ryuydfbr white matter changes of chronic microangiopathy.Diffuse osteopenia. No evidence of acute fracture or dislocation. Small suprapatellar joint effusion. 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 Chest f-[id number] with pulmonary venous congestion and trace right pleural effusion. No pulmonary edema.ow lung volumes. Previous echocardiogram done in 12/2017- Normal LV chamber size with moderate concentric LVH. The estimated LVEF is 45%. There is global hypokinesis. Mildly calcified mitral valve leaflets and annulus. There is normal leaflet opening. There is mild to moderate mitral regurgitation without prolapse. There is mild aortic insufficiency. There is moderate tricuspid regurgitation. The estimated PA systolic pressure is 45 mmHg. General Appearance somnolent for majority of exam however can be awakened; [id number] Skin No Rashes HEENT Atraumatic, PERRLA Neck Supple, No JVD Lymphatic Cervical nl Cardiovascular Normal S1, Normal S2 Lungs crackles in upper lung [place] Abdomen Normal Bowel Sounds, Soft Neurological Strength at 5/5 X4 Ext, Normal Tone Extremities 2+ pitting edema Vascular Normal Pulses Issues AMS now seems to be better of unclear etiology Acute pulm edema due to HFrEF NSTMI with elevated trops, previous cad with reduced ef DM, Urine tox shows narcotics - check home meds OA knee with effusion no evidence of septic knee DM, HLD REC cont to monitor Cardio to see ASA and statin and other antiplatelet rx per cardio Cardio to see Check TFT and othe work up Swallow eval will follow Pt in icu TTS 38 mins Chriss WALKER,Mary 04/22/18 1126: Attending MD Review Statement Attending Statement Attending Assessment/Plan: Pt seen by Dr Hyde
[2018-04-22 08:00] VITALS: BP 132/70
--- NOTE | 2018-04-22 11:44 | Cons- Cardiology ---
General Information and HPI Consulting Request Date of Consult: 04/22/18 Requested By: Mary Ellen WALKER,Lei Ayala Reason for Consult: Elevated troponin isoenzyme Source of Information: patient, old records Exam Limitations: no limitations History of Present Illness: The patient is an 87-year-old woman with a past medical history of coronary artery disease (status post stenting to the LAD in 2010), mitral regurgitation, a dilated cardiomyopathy with an LVEF of 45%, type2 DM, SSS (s/p medtronic pacemaker), as well as chronic congestive heart failure secondary to systolic dysfunction. She presents to our hospital with altered mental status, described as hallucinations by her son. The patient had otherwise denied symptoms of chest pains, palpitations nor significant dyspnea; however, has been noted to have an approximate 20 pound weight gain over the past 4 weeks. There have been no other symptoms of lightheadedness nor falls noted. On arrival, a urine toxicology test was positive for opiates. The patient was as well noted to have a levator troponin isoenzymes; however, albeit in a low, flat plateau fashion. There were no ischemic EKG changes noted on arrival. On presentation, she was found to have an acute on chronic kidney injury as well as significantly elevated BNP. Currently, the patient is asymptomatic for chest pains, palpitations nor dyspnea Allergies/Medications Allergies: Coded Allergies: No Known Allergies (12/16/17) Home Med List: Aspirin (Ecotrin*) 81 MG TABLET.DR 1 TAB PO DAILY STROKE PREVENTION . Carvedilol 6.25 MG TABLET 1 TAB PO BID HEART (Reported) Clopidogrel Bisulfate (Clopidogrel) 75 MG TABLET 1 TAB PO DAILY HEART ( Reported) Furosemide 40 MG TABLET 1 TAB PO DAILY HEART (Reported) Linagliptin (Tradjenta) 5 MG TABLET 1 TAB PO DAILY DIABETES (Reported) Potassium Chloride 10 MEQ TAB.ER.PRT 1 TAB PO DAILY HEART (Reported) Rosuvastatin Calcium (Crestor) 40 MG TABLET 1 TAB PO DAILY HEART (Reported) Current Medications: Current Medications Sig/Lucia Start time Last Medication Dose Route Stop Time Status Admin Aspirin 0 .STK-MED ONE 04/21 2104 DC PO Aspirin 325 MG ONCE ONE 04/21 1945 DC 04/21 PO 04/21 1946 2100 Aspirin Buffered 81 MG DAILY 04/22 0900 AC 04/22 PO 1004 Atorvastatin Calcium 80 MG 1700 04/22 1700 AC PO Carvedilol 6.25 MG BID 04/22 900 AC 04/22 PO 1004 Clopidogrel Bisulfate 75 MG DAILY 04/22 900 AC 04/22 PO 1004 Furosemide 40 MG DAILY 04/22 900 CAN PO Furosemide 40 MG DAILY 04/22 900 AC 04/22 IV 1005 Heparin Sodium 5,000 UNIT Q8 04/22 0600 DC (Porcine) SC Heparin Sodium 25,000 UNIT Q24H 04/22 0530 AC 04/22 (Porcine) IV 0636 Sodium Chloride 500 ML Heparin Sodium 4,000 UNIT ONCE ONE 04/22 0530 DC 04/22 (Porcine) IV 04/22 0531 0641 Insulin Human Regular 1 UNITS .STK-MED ONE 04/22 0028 DC IV 04/22 0029 Insulin Human Regular 0 Q6 04/21 2359 AC 04/22 SC 0549 Nystatin 1 RITESH TID 04/22 1400 AC TOP Sodium Chloride 250 ML BOLUS ONE 04/21 2145 DC IV 04/21 2244 Review of Systems Review of Systems: The review of systems is negative for chest pains, palpitations nor lightheadedness. The remainder of the 14 point review of systems is noncontributory with the exception of above. Past History Travel History Traveled to [place] past 21 day No Medical History Neurological: Hallucinations EENT: NONE Cardiovascular: CAD, hypertension, hyperlipidemia, mitral regurgitation Respiratory: NONE Gastrointestinal: NONE Hepatic: NONE Renal: NONE Musculoskeletal: NONE Psychiatric: NONE Endocrine: diabetes Blood Disorders: NONE Surgical History Surgical History: hysterectomy, PACEMAKER Psychosocial History Where Do You Live? Home (dependent on son) Who Do You Live With? child Smoking Status: Former Smoker ETOH Use: denies use Illicit Drug Use: denies illicit drug use Functional Ability Ambulation: walker Employment History Employment: Retired Exam & Diagnostic Data Vital Signs and I&O Vital Signs Date Time Temp Pulse Resp B/P B/P Pulse O2 O2 Flow FiO2 Mean Ox Delivery Rate 04/22 1016 94 Room Air 04/22 1012 Room Air 04/22 1004 66 110/68 04/22 08 97.1 84 24 132/70 93 Room Air Room Air 04/22 0800 93 Room Air Room Air 04/22 0047 Room Air 04/22 0000 93 Room Air 04/22 0000 98.2 70 22 123/60 93 Room Air 04/21 2312 98.3 68 18 130/74 98 Room Air 04/21 2135 96 Room Air Room Air 04/21 2135 98.0 67 18 132/72 98 Room Air Room Air 04/21 1838 97.8 67 18 130/74 97 Room Air Intake & Output 04/22 0000 04/21 0000 Intake Total Output Total 125 60 Balance -125 -60 Output, Urine 125 60 Patient 190 lb Weight Weight Bed scale Measurement Method Physical Exam: General: Nontoxic, no apparent distress. HEENT: Sclera and conjunctiva within normal limits, without xanthelasmas. Neck: Carotids 2+ without bruits. Respiratory: Scattered rhonchi and rales, air movement is good, without accessory respiratory muscle use. Heart: Regular rate and rhythm, without murmurs, without JVD. Abdomen: Soft, nontender, no masses, normoactive bowel sounds. Extremities: Without clubbing, cyanosis, without edema. Neuro: Nonfocal exam, strength, 5 out of 5 Skin: Within normal limits without lesions. Psych: Mood and affect: Normal Labs/Jose Juan Results: Laboratory Tests 04/22 0400 0055 Chemistry Sodium (137 - 145 mmol/L) 143 Potassium (3.5 - 5.1 mmol/L) 3.8 Chloride (98 - 107 mmol/L) 105 Carbon Dioxide (22 - 30 mmol/L) 24 Anion Gap (5 - 16) 14 BUN (7 - 17 mg/dL) 38 H Creatinine (0.5 - 1.0 mg/dL) 2.2 H Estimated GFR (>60 ml/min) 21 L BUN/Creatinine Ratio (7 - 25 %) 17.3 Troponin I (< 0.11 ng/ml) 0.30 *H 0.29 *H Hematology CBC w Diff NO MAN DIFF REQ WBC (4.8 - 10.8 /CUMM) 5.5 RBC (4.20 - 5.40 /CUMM) 3.83 L Hgb (12.0 - 16.0 G/DL) 11.2 L Hct (37 - 47 %) 34.4 L MCV (81.0 - 99.0 FL) 90.0 MCH (27.0 - 31.0 PG) 29.3 MCHC (33.0 - 37.0 G/DL) 32.6 L RDW (11.5 - 14.5 %) 16.5 H Plt Count (130 - 400 /CUMM) 190 MPV (7.4 - 10.4 FL) 8.7 Gran % (42.2 - 75.2 %) 66.5 Lymphocytes % (20.5 - 51.1 %) 17.9 L Monocytes % (1.7 - 9.3 %) 11.6 H Eosinophils % (0 - 5 %) 3.0 Basophils % (0.0 - 2.0 %) 1.0 Absolute Granulocytes (1.4 - 6.5 /CUMM) 3.7 Absolute Lymphocytes (1.2 - 3.4 /CUMM) 1.0 L Absolute Monocytes (0.10 - 0.60 /CUMM) 0.6 Absolute Eosinophils (0.0 - 0.7 /CUMM) 0.2 Absolute Basophils (0.0 - 0.2 /CUMM) 0.1 04/21 04/21 2233 2126 Toxicology Urine Opiates Screen (>2000 NG/ML) > 4000.00 H Methadone Screen (>300 NG/ML) Cancelled 53 Barbiturate Screen (>200 NG/ML) Cancelled < 60 Ur Phencyclidine Scrn (>25 NG/ML) Cancelled 8.80 Amphetamines Screen (>1000 NG/ML) Cancelled < 100 U Benzodiazepines Scrn (>200 NG/ML) Cancelled < 85 Urine Cocaine Screen (>300 NG/ML) Cancelled < 50 Urine Cannabis Screen (>50 NG/ML) Cancelled < 5.00 Urines Urinalysis MANY H Urine Color (YEL,AMB,STR) YEL Urine Clarity (CLEAR) CLDY H Urine pH (5.0 - 8.0) 6.0 Ur Specific [place] (1.001 - 1.035) 1.025 Urine Protein (NEG,<30 MG/DL) 100 H Urine Ketones (NEG) NEG Urine Nitrite (NEG) NEG Urine Bilirubin (NEG) NEG Urine Urobilinogen (0.1 - 1.0 EU/dl) 0.2 Ur Leukocyte Esterase (NEG) NEG Ur Microscopic SEDIMENT EXAMINED Urine RBC (0 - 5 /HPF) RARE Urine WBC (0 - 2 /HPF) RARE Ur Epithelial Cells (NONE,FEW) FEW Urine Bacteria (NEG/NONE) FEW H Hyaline Casts (0/LPF) 1-3 H Granular Casts (NONE /LPF) 3-5 H Urine Mucus (FEW,NONE) FEW Urine Hemoglobin (NEG) TRACE-INTACT Urine Glucose (N MG/DL) NEG 04/21 1846 Chemistry Sodium (137 - 145 mmol/L) 142 Potassium (3.5 - 5.1 mmol/L) 3.9 Chloride (98 - 107 mmol/L) 103 Carbon Dioxide (22 - 30 mmol/L) 24 Anion Gap (5 - 16) 16 BUN (7 - 17 mg/dL) 39 H Creatinine (0.5 - 1.0 mg/dL) 2.2 H Estimated GFR (>60 ml/min) 21 L BUN/Creatinine Ratio (7 - 25 %) 17.7 Glucose (65 - 99 mg/dL) 127 H Lactic Acid (0.7 - 2.1 mmol/L) 1.2 Calcium (8.4 - 10.2 mg/dL) 9.4 Total Bilirubin (0.2 - 1.3 mg/dL) 0.6 AST (14 - 36 U/L) 26 ALT (9 - 52 U/L) 27 Alkaline Phosphatase (<127 U/L) 59 Troponin I (< 0.11 ng/ml) 0.26 *H [id number] Pept (<125 pg/mL) 44771 H Total Protein (6.3 - 8.2 g/dL) 6.7 Albumin (3.5 - 5.0 g/dL) 3.9 Globulin (1.9 - 4.2 gm/dL) 2.8 Albumin/Globulin Ratio (1.1 - 2.2 %) 1.4 Vitamin B12 (239 - 931 pg/mL) > 1000 H Free T4 (0.85 - 1.93 ng/dL) 1.49 Total T3 (0.97 - 1.69 ng/mL) 0.89 L TSH &T3 &Free T4 Intrp (0.270 - 4.20 uIU/mL) 4.910 H Coagulation PT (9.4 - 12.5 SEC) 15.9 H INR (0.90 - 1.19) 1.45 H APTT (25 - 37 SEC) 30 Hematology CBC w Diff NO MAN DIFF REQ WBC (4.8 - 10.8 /CUMM) 5.6 RBC (4.20 - 5.40 /CUMM) 3.98 L Hgb (12.0 - 16.0 G/DL) 11.7 L Hct (37 - 47 %) 35.7 L MCV (81.0 - 99.0 FL) 89.6 MCH (27.0 - 31.0 PG) 29.3 MCHC (33.0 - 37.0 G/DL) 32.7 L RDW (11.5 - 14.5 %) 16.8 H Plt Count (130 - 400 /CUMM) 194 MPV (7.4 - 10.4 FL) 8.4 Gran % (42.2 - 75.2 %) 68.5 Lymphocytes % (20.5 - 51.1 %) 16.5 L Monocytes % (1.7 - 9.3 %) 12.3 H Eosinophils % (0 - 5 %) 2.1 Basophils % (0.0 - 2.0 %) 0.6 Absolute Granulocytes (1.4 - 6.5 /CUMM) 3.8 Absolute Lymphocytes (1.2 - 3.4 /CUMM) 0.9 L Absolute Monocytes (0.10 - 0.60 /CUMM) 0.7 H Absolute Eosinophils (0.0 - 0.7 /CUMM) 0.1 Absolute Basophils (0.0 - 0.2 /CUMM) 0 Assessment/Plan Assessment/Plan 87-year-old woman with a past medical history of coronary artery disease (status post stenting to the LAD in 2010), mitral regurgitation, a dilated cardiomyopathy with an LVEF of 45%, type2 DM, SSS (s/p medtronic pacemaker), as well as chronic congestive heart failure secondary to systolic dysfunction. She presents to our hospital with altered mental status, described as hallucinations by her son, she was as well noted to have an elevated troponin isoenzyme as well as significantly elevated BNP, in the setting of an approximate 20 pound weight gain over a period of 4 weeks. Elevated troponin isoenzyme: The patient presents with an elevated troponin isoenzymes; however, in the setting of acute on chronic kidney injury, and without ischemic EKG changes nor complaints. Overall, her enzyme elevation is flat, and she demonstrated elevations on her previous admissions as well. Her presentation is not consistent with an acute coronary syndrome rather, chronic troponin isoenzyme elevation in the setting of renal dysfunction and acute congestive heart failure. We will continue with a conservative management approach. Aspirin as well as beta blockers (Coreg) will be maintained and a statin. Acute on chronic congestive heart failure: The patient had an approximate 20 pound weight gain over the past 4 weeks. This likely represents fluid overload and a component of acute on chronic congestive heart failure secondary to combined diastolic and systolic dysfunction. We will target on diuresing, maintaining an overall net negative of approximately 1 L per day if renal function allows. Further close follow-up of congestive heart failure will need to be undertaken. Altered mental status: The patient had altered mental status on presentation; however, is currently improved. There is likely component of her positive opiate screen to this. We will continue to follow. Thank you for allowing us to participate in the care of your patient. Please do not hesitate to contact us further with any questions. Sincerely, Kodi Singh MD [facility] Consult Acknowledgment - Thank you for your consult request.
[2018-04-22 14:12] LABS: PTT > 120 SEC (25-37)
[2018-04-22 16:00] VITALS: BP 110/80
[2018-04-22 20:00] VITALS: BP 100/64
--- NOTE | 2018-04-22 21:05 | ECHOCARDIOGRAM REPORT ---
EROS MCGOWAN Age: 87 : 1930 Gender: F Exam Date: 04/22/2018 16:30 Exam Location: [facility] Ht (in): 62 Wt (lb): 190 BSA: 1.98 BP: 126 / 30 Ordering Physician: Charles Connor MD Referring Physician: Kodi Singh M.D. Technologist: Marya Scherer RDCS Room Number: 108 Indications: HEART FAILURE Rhythm: Other Technical Quality: Poor FINDINGS Left Ventricle Normal size left ventricle. Left ventricular wall thickness moderately increased. Mildly abnormal left ventricular ejection fraction estimated at 35-40%. Abnormal septal motion consistent with an intraventricular conduction defect. Right Ventricle Normal right ventricular size and function. Catheter/pacemaker wire in the right ventricular cavity. Right Atrium Normal right atrial size. Left Atrium Moderate left atrial dilatation. Mitral Valve Mild mitral annular calcification. Mild mitral regurgitation. Aortic Valve Diffuse thickening (sclerosis) of the aortic valve cusps without reduced excursion. Tricuspid Valve Tricuspid valve is normal in structure and function. Mild-to- moderate tricuspid regurgitation. Right ventricular systolic pressure estimated to be elevated at 45 mmHg. Pulmonic Valve Pulmonic valve not well visualized, grossly normal. Pericardium No pericardial effusion. Great Vessels Aortic root and proximal ascending aorta not well visualized. CONCLUSIONS Mild to moderate reduction in left ventricular systolic function with moderate LVH. Moderate Pulmonary hypertension. Evin Banerjee M.D. (Electronically Signed) Final Date: 22 April 2018 21:05 MEASUREMENTS (Male / Female) Normal Values 2D ECHO LV Diastolic Diameter PLAX 4.4 cm 4.2 - 5.9 / 3.9 - 5.3 cm LV Systolic Diameter PLAX 3.5 cm 2.1 - 4.0 cm LV Fractional Shortening PLAX 20.5 % 25 - 46 % LV Ejection Fraction 2D Teich 42.0 % IVS Diastolic Thickness 1.6 cm LVPW Diastolic Thickness 1.6 cm LV Relative Wall Thickness 0.7 RV Internal Dim ED PLAX 3.8 cm 1.9 - 3.8 cm LVOT Diameter 1.9 cm Aortic Root Diameter 3.0 cm LA Systolic Diameter LX 4.9 cm 3.0 - 4.0 / 2.7 - 3.8 cm LA Volume 79.0 cm 18 - 58 / 22 - 52 cm Ascending Aorta Diameter 3.2 cm DOPPLER AV Peak Velocity 139.0 cm/s AV Peak Gradient 7.7 mmHg AV Mean Velocity 89.9 cm/s AV Mean Gradient 4.0 mmHg AV Velocity Time Integral 25.6 cm AI Deceleration [place] 219.0 cm/s AI Peak Velocity 359.0 cm/s AI Pressure Half Time 517.0 ms AI Peak Gradient 51.6 mmHg LVOT Peak Velocity 102.0 cm/s LVOT Peak Gradient 4.2 mmHg LVOT Mean Velocity 58.8 cm/s LVOT Mean Gradient 2.0 mmHg LVOT Velocity Time Integral 18.3 cm LVOT Stroke Volume 51.9 cm AV Area Cont Eq vti 2.0 cm AV Area Cont Eq pk 2.1 cm MV Peak Velocity 74.9 cm/s MV Peak Gradient 2.2 mmHg MV Mean Velocity 42.6 cm/s MV Mean Gradient 1.0 mmHg Mitral E Point Velocity 62.7 cm/s Mitral A Point Velocity 44.9 cm/s Mitral E to A Ratio 1.4 MV PHT Velocity 78.2 cm/s MV Deceleration [place] 266.0 cm/s MV Pressure Half Time 88.2 ms MV Area PHT 2.5 cm MV Deceleration Time 229.0 ms TR Peak Velocity 289.0 cm/s TR Peak Gradient 33.4 mmHg Right Atrial Pressure 10.0 mmHg Pulmonary Artery Systolic Pressure 43.4 mmHg Right Ventricular Systolic Pressure 43.4 mmHg PV Peak Velocity 75.3 cm/s PV Peak Gradient 2.3 mmHg PV Mean Velocity 53.6 cm/s PV Mean Gradient 1.0 mmHg PV Velocity Time Integral 15.0 cm LV E' Lateral Velocity 4.0 cm/s Mitral E to LV E' Lateral Ratio 15.8 LV E' Septal Velocity 3.8 cm/s Mitral E to LV E' Septal Ratio 16.4
--- NOTE | 2018-04-23 06:56 | PN- Housestaff ---
Travis Vasquez 04/23/18 0655: Subjective Follow-up For: Altered Mental Status NSTEMI CKD CHF Tele-Events Since Last Visit: Sinus Pacing; 72 HR; 0.16 Subjective: Patient seen and examined at bedside this morning. She was minimally invasive initially. However later on patient was more responsibe to sternal rub and voice. She was alert to place but not person or time at the moment. Patient could not verbalize if she was in any significant pain or any new complaints. Patient has guerrero placed. Troponins were trending but most likely due to CKD/CHF demand ischemia. Review of Systems Constitutional: Denies: see HPI. Objective Last 24 Hrs of Vital Signs/I&O Vital Signs Date Time Temp Pulse Resp B/P B/P Pulse O2 O2 Flow FiO2 Mean Ox Delivery Rate 04/23 0851 102/63 04/23 0706 98.9 70 20 120/60 95 04/22 2039 73 102/62 04/22 2000 Room Air 04/22 2000 98.2 76 22 100/64 95 Room Air 04/22 1600 93 Room Air Room Air 04/22 1600 96.7 70 20 110/80 93 Room Air Room Air 04/22 1200 94 Room Air Room Air Intake & Output 04/23 1600 04/23 0800 04/23 0000 Intake Total 240 Output Total 300 650 Balance -300 -410 Intake, Oral 240 Number 0 Bowel Movements Output, Urine 300 650 Patient 189 lb Weight Physical Exam General Appearance: Alert, Oriented only to place; not person or time Skin: No Breakdown HEENT: PERRLA, EOMI, Mucous Membr. moist/pink Neck: Supple Cardiovascular: Regular Rate, Normal S1, Normal S2, pacemaker Lungs: Clear to Auscultation, Normal Air Movement Abdomen: Normal Bowel Sounds, Soft, No Tenderness Neurological: Normal Tone, Patient minimally verbal; somnolecent this morning Extremities: No Clubbing, No Cyanosis, No Edema, very minimal lower extremity edema Vascular: Normal Pulses Current Medications: Current Medications Sig/Lucia Start time Last Medication Dose Route Stop Time Status Admin Aspirin Buffered 81 MG DAILY 04/22 900 AC 04/23 PO 0851 Atorvastatin Calcium 80 MG 1700 04/22 1700 AC 04/22 PO 1629 Carvedilol 6.25 MG BID 04/22 900 AC 04/22 PO 203 Clopidogrel Bisulfate 75 MG DAILY 04/22 900 AC 04/23 PO 0851 Furosemide 40 MG DAILY 04/22 09 AC 04/22 IV 1005 Heparin Sodium 25,000 UNIT Q24H 04/22 0530 DC 04/22 (Porcine) IV 0636 Sodium Chloride 500 ML Insulin Aspart 0 TIDAC 04/22 1700 [facility] Insulin Human Regular 2 UNITS .STK-MED ONE 04/22 1138 DC IV 04/22 1139 Insulin Human Regular 0 Q6 04/21 2359 DC 04/22 SC 1146 Nystatin 1 RITESH TID 04/22 1400 04/23 TOP 0856 Last 24 Hrs of Lab/Jose Juan Results Last 24 Hrs of Labs/Mics: Laboratory Tests 04/23/18 0617: CBC w Diff NO MAN DIFF REQ, RBC 3.63 L, MCV 89.9, MCH 29.6, MCHC 33.0, RDW 16.3 H, MPV 8.7, Gran % 74.4, Lymphocytes % 14.4 L, Monocytes % 9.2, Eosinophils % 1.2, Basophils % 0.8, Absolute Granulocytes 4.4, Absolute Lymphocytes 0.9 L, Absolute Monocytes 0.5, Absolute Eosinophils 0.1, Absolute Basophils 0 04/23/18 0500: Anion Gap 18 H, Estimated GFR 19 L, Glucose 79, Calcium 9.1, Phosphorus 4.4, Magnesium 2.0, Total Bilirubin 0.9, AST 27, ALT 30, Troponin I 0.37 *H, Albumin 3.5 04/22/18 2115: APTT Cancelled 04/22/18 1615: Troponin I 0.29 *H 04/22/18 1137: APTT > 120 *H 04/22/18 1105: Urinalysis MOD H, Urine Color YEL, Urine Clarity HAZY H, Urine pH 6.0, Ur Specific [place] 1.025, Urine Protein 30 H, Urine Ketones NEG, Urine Nitrite NEG, Urine Bilirubin NEG, Urine Urobilinogen 0.2, Ur Leukocyte Esterase NEG, Ur Microscopic SEDIMENT EXAMINED, Urine RBC 1-3, Urine WBC 5-10 H, Ur Epithelial Cells RARE, Urine Bacteria MANY H, Granular Casts 15-25 H, Urine Hemoglobin NEG, Urine Glucose NEG Microbiology 04/22 1105 URINE ROUT: Urine Culture - RECD Assessment/Plan Assessment: Patient is an 87 year old female with past medical history of undiagnosed dementia, type 2 DM, CAD (s/p BMS stent in 2010), 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 Pateint came to ED for altered mental status/hallucinations for 3 weeks and increasing cough. Patient found to have elevated troponins and BNP in setting of weight gain. Patient is seen by Dr. Hyde as per pulmonology. Patient is seen by Dr. Singh as per cardiology. Patients son was spoken to on the phone today in concern about his mothers condition since grandson was here yesterday and there was no update. It was cleared with the son that patient was minimally responsive this morning but was awake to voice and was able to identify where she is. Patients positive opiate screen on utox was from possible cough medicine that was restarted as per son ( Vitussin) which includes codeine. Unsure how much of this medication patient has taken. Elevated Troponin Isoenzyme * troponin readings: 0.26, 0.29, 0.30, 0.29, 0.37 on admission; EKG changes not significant due to pacemaker * Presentation not consistent with ACS; chronic elevation in the setting of renal dysfunction and acute CHF leads towards a demand ischemia * Continue Aspirin, Coreg and Statin * As per cardio; further troponin followup does not need to be maintained Acute on Chronic Congestive Heart Failure * Echo: Decreased left ventricular systolic function; mild LVH; pulmonary HTN Combined diastolic and systolic dysfunction * Patient seen by Dr. Singh today: improved following diuresis; approximate 1.5 L net output * Uptrending troponins seem to be normal for her; no EKG changse; Lasix is held due to increased creatinine and minimal leg swelling (Cr:2.4; BUN 40) * Dr. Acevedo of pulmonology seen patient; acute pulmonary edema due to HFrEF now resolved; may benefit from BiPAP if PCo2 is high; check ABG later today Altered Mental Status * Neurology and Psychiatry consulted 04/23 for patients AMS and as per concern of her son * Patient found to be positive for opiates on utox; may be due to previously prescribed cough medication; unclear * Patient minimally verbal and somnolecent this morning; she is alert to place but not time and persons; pupils are equal and reactive with no pinpointing * evaluation by neurology may be considered * UA Cx: Enterococcus; will wait for sensitivity to treat Patients son concerned about her intake as she is denying meals. Nutrition consult placed 04/23. Will reasess. Neurology consulted. Code Status: DNR/DNI DVT PPx: ALPS Diet: Regular Pain: as per pain pathway Problem List: 1. CHF (congestive heart failure) 2. Acute renal injury 3. 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 Pt was initially admitted to ICU and then transferred to floor. Altered mental stauts/ Encephalopathy secondary likely due to meds. Pts utox was positive for opiates. pt son says pt was taking cough medicine with codeine at home. Mental status improving now and pt is more alert and verbalizing. she knows she is in hospital . Type 2 MA- Trop elevation in setting of chf and ckd, cardiology following. pt doing better now. cont current medical managment. heparin drip stopped. pt on sc heparin. cont asa, plavix, b donna and statin Acute on chronic systolic chf- pts cr is worse at 2.4 and her bp is borderline. so we are going to hold her lasix for now. will f/u her renal functions closely. The team spoke with pts son and care plan was discussed with him.
[2018-04-23 07:06] VITALS: BP 120/60
[2018-04-23 08:31] LABS: ABSOLUTE BASOPHIL COUNT 0 /CUMM (0.0-0.2); ABSOLUTE EOSINOPHIL COUNT 0.1 /CUMM (0.0-0.7); ABSOLUTE GRANULOCYTE CT 4.4 /CUMM (1.4-6.5); ABSOLUTE LYMPH COUNT 0.9 /CUMM (1.2-3.4); ABSOLUTE MONOCYTE COUNT 0.5 /CUMM (0.10-0.60); BASOPHIL % 0.8 % (0.0-2.0); EOSINOPHIL % 1.2 % (0-5); GRANULOCYTE % 74.4 % (42.2-75.2); HEMATOCRIT 32.6 % (37-47); MEAN CORPUSCULAR HGB 29.6 PG (27.0-31.0); MEAN CORPUSCULAR VOLUME 89.9 FL (81.0-99.0); MEAN PLATELET VOLUME 8.7 FL (7.4-10.4); PLATELET COUNT 186 /CUMM (130-400); RBC DISTRIBUTION WIDTH 16.3 % (11.5-14.5); RED BLOOD CELL CT 3.63 /CUMM (4.20-5.40); WHITE BLOOD CELL COUNT 5.9 /CUMM (4.8-10.8)
--- NOTE | 2018-04-23 09:57 | PN- Cardiology ---
Subjective Subjective: The patient is somnolent, minimally responsive The events of the last 24 hours as well as telemetry were reviewed. Review of Systems: The review systems was unable to be obtained secondary to the patient's current status Objective Vital Signs and I&Os Vital Signs Date Time Temp Pulse Resp B/P B/P Pulse O2 O2 Flow FiO2 Mean Ox Delivery Rate 04/23 0851 102/63 04/23 0706 98.9 70 20 120/60 95 04/22 2039 73 102/62 04/22 2000 Room Air 04/22 2000 98.2 76 22 100/64 95 Room Air 04/22 1600 93 Room Air Room Air 04/22 1600 96.7 70 20 110/80 93 Room Air Room Air 04/22 1200 94 Room Air Room Air 04/22 1016 94 Room Air 04/22 1012 Room Air 04/22 1004 66 110/68 Intake & Output 04/23 1600 04/23 0800 04/23 0000 / 1600 04/22 0800 04/22 0000 Intake Total 240 186 Output Total 300 650 550 125 60 Balance -300 -410 -364 -125 -60 Intake, IV 136 Intake, Oral 240 50 Number 0 Bowel Movements Output, Urine 300 650 550 125 60 Patient 189 lb 193 lb 190 lb Weight Weight Bed scale Bed scale Measurement Method Physical Exam: General: Somnolent, minimally responsive HEENT: Sclera and conjunctiva within normal limits, without xanthelasmas. Neck: Carotids 2+ without bruits. Respiratory: Scattered rhonchi, air movement is good, without accessory respiratory muscle use. Heart: Regular rate and rhythm, without murmurs, without JVD. Abdomen: Soft, nontender, no masses, normoactive bowel sounds. Extremities: Without clubbing, cyanosis, without edema. Neuro: Grossly Nonfocal exam, strength, 5 out of 5 Skin: Within normal limits without lesions. Psych: Mood and affect: Unable to assess Current Medications: Current Medications Sig/Lucia Start time Last Medication Dose Route Stop Time Status Admin Aspirin Buffered 81 MG DAILY 04/22 900 AC 04/23 PO 0851 Atorvastatin Calcium 80 MG 1700 04/22 1700 AC 04/22 PO 1629 Carvedilol 6.25 MG BID 04/22 900 AC 04/22 PO 2038 Clopidogrel Bisulfate 75 MG DAILY 04/22 900 AC 04/23 PO 08 Furosemide 40 MG DAILY 04/22 900 AC 04/22 IV 1005 Heparin Sodium 25,000 UNIT Q24H 04/22 0530 DC 04/22 (Porcine) IV 0636 Sodium Chloride 500 ML Insulin Aspart 0 TIDAC 04/22 1700 [facility] Insulin Human Regular 2 UNITS .STK-MED ONE 04/22 1138 DC IV 04/22 1139 Insulin Human Regular 0 Q6 04/21 2359 DC 04/22 SC 1146 Nystatin 1 RITESH TID 04/22 1400 04/23 [facility] 0856 Results Last 48 Hrs of Labs/Mics: Laboratory Tests 04/23/18 0617: CBC w Diff NO MAN DIFF REQ, RBC 3.63 L, MCV 89.9, MCH 29.6, MCHC 33.0, RDW 16.3 H, MPV 8.7, Gran % 74.4, Lymphocytes % 14.4 L, Monocytes % 9.2, Eosinophils % 1.2, Basophils % 0.8, Absolute Granulocytes 4.4, Absolute Lymphocytes 0.9 L, Absolute Monocytes 0.5, Absolute Eosinophils 0.1, Absolute Basophils 0 04/23/18 0500: Anion Gap 18 H, Estimated GFR 19 L, Glucose 79, Calcium 9.1, Phosphorus 4.4, Magnesium 2.0, Total Bilirubin 0.9, AST 27, ALT 30, Troponin I 0.37 *H, Albumin 3.5 04/22/18 2115: APTT Cancelled 04/22/18 1615: Troponin I 0.29 *H 04/22/18 1137: APTT > 120 *H 04/22/18 1105: Urinalysis MOD H, Urine Color YEL, Urine Clarity HAZY H, Urine pH 6.0, Ur Specific [place] 1.025, Urine Protein 30 H, Urine Ketones NEG, Urine Nitrite NEG, Urine Bilirubin NEG, Urine Urobilinogen 0.2, Ur Leukocyte Esterase NEG, Ur Microscopic SEDIMENT EXAMINED, Urine RBC 1-3, Urine WBC 5-10 H, Ur Epithelial Cells RARE, Urine Bacteria MANY H, Granular Casts 15-25 H, Urine Hemoglobin NEG, Urine Glucose NEG 04/22/18 0800: Troponin I 0.30 *H 04/22/18 0400: Anion Gap 14, Estimated GFR 21 L, BUN/Creatinine Ratio 17.3, CBC w Diff NO MAN DIFF REQ, RBC 3.83 L, MCV 90.0, MCH 29.3, MCHC 32.6 L, RDW 16.5 H, MPV 8.7, Gran % 66.5, Lymphocytes % 17.9 L, Monocytes % 11.6 H, Eosinophils % 3.0, Basophils % 1.0, Absolute Granulocytes 3.7, Absolute Lymphocytes 1.0 L, Absolute Monocytes 0.6, Absolute Eosinophils 0.2, Absolute Basophils 0.1 04/22/18 0055: Troponin I 0.29 *H 04/21/18 2233: Methadone Screen Cancelled, Barbiturate Screen Cancelled, Ur Phencyclidine Scrn Cancelled, Amphetamines Screen Cancelled, U Benzodiazepines Scrn Cancelled, Urine Cocaine Screen Cancelled, Urine Cannabis Screen Cancelled 04/21/186: Urine Opiates Screen > 4000.00 H, Methadone Screen 53, Barbiturate Screen < 60, Ur Phencyclidine Scrn 8.80, Amphetamines Screen < 100, U Benzodiazepines Scrn < 85, Urine Cocaine Screen < 50, Urine Cannabis Screen < 5.00, Urinalysis MANY H, Urine Color YEL, Urine Clarity CL[place] H, Urine pH 6.0, Ur Specific [place] 1.025, Urine Protein 100 H, Urine Ketones NEG, Urine Nitrite NEG, Urine Bilirubin NEG, Urine Urobilinogen 0.2, Ur Leukocyte Esterase NEG, Ur Microscopic SEDIMENT EXAMINED, Urine RBC RARE, Urine WBC RARE, Ur Epithelial Cells FEW, Urine Bacteria FEW H, Hyaline Casts 1-3 H, Granular Casts 3-5 H, Urine Mucus FEW, Urine Hemoglobin TRACE-INTACT, Urine Glucose NEG 04/21/18 1846: Anion Gap 16, Estimated GFR 21 L, BUN/Creatinine Ratio 17.7, Glucose 127 H, Lactic Acid 1.2, Calcium 9.4, Total Bilirubin 0.6, AST 26, ALT 27, Alkaline Phosphatase 59, Troponin I 0.26 *H, [id number] Pept 68732 H, Total Protein 6.7, Albumin 3.9, Globulin 2.8, Albumin/Globulin Ratio 1.4, Vitamin B12 > 1000 H, Free T4 1.49, Total T3 0.89 L, TSH &T3 &Free T4 Intrp 4.910 H, PT 15.9 H, INR 1.45 H, APTT 30, CBC w Diff NO MAN DIFF REQ, RBC 3.98 L, MCV 89.6 , MCH 29.3, MCHC 32.7 L, RDW 16.8 H, MPV 8.4, Gran % 68.5, Lymphocytes % 16.5 L, Monocytes % 12.3 H, Eosinophils % 2.1, Basophils % 0.6, Absolute Granulocytes 3.8, Absolute Lymphocytes 0.9 L, Absolute Monocytes 0.7 H, Absolute Eosinophils 0.1, Absolute Basophils 0 Microbiology 04/21 2359 UPPER RESP: Surveillance Culture - COMP 04/21 2359 GI: Surveillance Culture - COMP Assessment/Plan Assessment/Plan 87-year-old woman with a past medical history of coronary artery disease (status post stenting to the LAD in 2010), mitral regurgitation, a dilated cardiomyopathy with an LVEF of 45%, type2 DM, SSS (s/p medtronic pacemaker), as well as chronic congestive heart failure secondary to systolic dysfunction. She presents to our hospital with altered mental status, described as hallucinations by her son, she was as well noted to have an elevated troponin isoenzyme as well as significantly elevated BNP, in the setting of an approximate 20 pound weight gain over a period of 4 weeks. Elevated troponin isoenzyme: The patient presents with an elevated troponin isoenzymes; however, in the setting of acute on chronic kidney injury, and without ischemic EKG changes nor complaints. Overall, her enzyme elevation is flat, and she demonstrated elevations on her previous admissions as well. Her presentation is not consistent with an acute coronary syndrome rather, chronic troponin isoenzyme elevation in the setting of renal dysfunction and acute congestive heart failure. We will continue with a conservative management approach. Aspirin as well as beta blockers (Coreg) will be maintained and a statin. Further follow-up of troponin isoenzymes does not need to be maintained Acute on chronic congestive heart failure: The patient had an approximate 20 pound weight gain over the past 4 weeks. This likely represents fluid overload and a component of acute on chronic congestive heart failure secondary to combined diastolic and systolic dysfunction. She is improved following diuresis, and has had an approximate 1.5 L net output. We will target on diuresing further, maintaining an overall net negative of approximately 1 L per day if renal function allows. Altered mental status: The patient had altered mental status on presentation, thought secondary to opiates. Evaluation by neurology may prove helpful. Continue telemetry? Yes
--- NOTE | 2018-04-23 10:07 | PN- Pulmonary ---
Subjective HPI/Critical Care Issues: More awake Was lethargic this am Objective Current Medications: Current Medications Sig/Lucia Start time Last Medication Dose Route Stop Time Status Admin Aspirin Buffered 81 MG DAILY 04/22 900 AC 04/23 PO 0851 Atorvastatin Calcium 80 MG 1700 04/22 1700 AC 04/22 PO 1629 Carvedilol 6.25 MG BID 04/22 900 AC 04/22 PO 2039 Clopidogrel Bisulfate 75 MG DAILY 04/22 900 AC 04/23 PO 0851 Furosemide 40 MG DAILY 04/22 900 AC 04/22 IV 1005 Heparin Sodium 25,000 UNIT Q24H 04/22 0530 DC 04/22 (Porcine) IV 0636 Sodium Chloride 500 ML Insulin Aspart 0 TIDAC 04/22 1700 AC SC Insulin Human Regular 2 UNITS .STK-MED ONE 04/22 1138 DC IV 04/22 1139 Insulin Human Regular 0 Q6 04/21 2359 DC 04/22 SC 1146 Nystatin 1 RITESH TID 04/22 1400 AC 04/23 TOP 0856 Vital Signs & I&O Last 24 Hrs of Vitals and I&O: Vital Signs Date Time Temp Pulse Resp B/P B/P Pulse O2 O2 Flow FiO2 Mean Ox Delivery Rate 04/23 0851 102/63 04/23 07 98.9 70 20 120/60 95 04/22 2039 73 102/62 04/22 2000 Room Air 04/22 2000 98.2 76 22 100/64 95 Room Air 04/22 1600 93 Room Air Room Air 04/22 1600 96.7 70 20 110/80 93 Room Air Room Air 04/22 1200 94 Room Air Room Air 04/22 1016 94 Room Air 04/22 1012 Room Air 04/22 1004 66 110/68 Intake & Output 04/23 1600 04/23 0804/23 0000 Intake Total 240 Output Total 300 650 Balance -300 -410 Intake, Oral 240 Number 0 Bowel Movements Output, Urine 300 650 Patient 189 lb Weight Laboratory Tests 04/23 04/23 04/22 0617 0500 2115 Chemistry Sodium (137 - 145 mmol/L) 143 Potassium (3.5 - 5.1 mmol/L) 3.8 Chloride (98 - 107 mmol/L) 103 Carbon Dioxide (22 - 30 mmol/L) 22 Anion Gap (5 - 16) 18 H BUN (7 - 17 mg/dL) 40 H Creatinine (0.5 - 1.0 mg/dL) 2.4 H Estimated GFR (>60 ml/min) 19 L Glucose (65 - 99 mg/dL) 79 Calcium (8.4 - 10.2 mg/dL) 9.1 Phosphorus (2.5 - 4.5 mg/dL) 4.4 Magnesium (1.6 - 2.3 mg/dL) 2.0 Total Bilirubin (0.2 - 1.3 mg/dL) 0.9 AST (14 - 36 U/L) 27 ALT (9 - 52 U/L) 30 Troponin I (< 0.11 ng/ml) 0.37 *H Albumin (3.5 - 5.0 g/dL) 3.5 Coagulation APTT Cancelled Hematology CBC w Diff NO MAN DIFF REQ WBC (4.8 - 10.8 /CUMM) 5.9 RBC (4.20 - 5.40 /CUMM) 3.63 L Hgb (12.0 - 16.0 G/DL) 10.8 L Hct (37 - 47 %) 32.6 L MCV (81.0 - 99.0 FL) 89.9 MCH (27.0 - 31.0 PG) 29.6 MCHC (33.0 - 37.0 G/DL) 33.0 RDW (11.5 - 14.5 %) 16.3 H Plt Count (130 - 400 /CUMM) 186 MPV (7.4 - 10.4 FL) 8.7 Gran % (42.2 - 75.2 %) 74.4 Lymphocytes % (20.5 - 51.1 %) 14.4 L Monocytes % (1.7 - 9.3 %) 9.2 Eosinophils % (0 - 5 %) 1.2 Basophils % (0.0 - 2.0 %) 0.8 Absolute Granulocytes (1.4 - 6.5 /CUMM) 4.4 Absolute Lymphocytes (1.2 - 3.4 /CUMM) 0.9 L Absolute Monocytes (0.10 - 0.60 /CUMM) 0.5 Absolute Eosinophils (0.0 - 0.7 /CUMM) 0.1 Absolute Basophils (0.0 - 0.2 /CUMM) 0 04/22 04/22 04/22 1615 1137 1105 Chemistry Troponin I (< 0.11 ng/ml) 0.29 *H Coagulation APTT (25 - 37 SEC) > 120 *H Urines Urinalysis MOD H Urine Color (YEL,AMB,STR) YEL Urine Clarity (CLEAR) HAZY H Urine pH (5.0 - 8.0) 6.0 Ur Specific [place] (1.001 - 1.035) 1.025 Urine Protein (NEG,<30 MG/DL) 30 H Urine Ketones (NEG) NEG Urine Nitrite (NEG) NEG Urine Bilirubin (NEG) NEG Urine Urobilinogen (0.1 - 1.0 EU/dl) 0.2 Ur Leukocyte Esterase (NEG) NEG Ur Microscopic SEDIMENT EXAMINED Urine RBC (0 - 5 /HPF) 1-3 Urine WBC (0 - 2 /HPF) 5-10 H Ur Epithelial Cells (NONE,FEW) RARE Urine Bacteria (NEG/NONE) MANY H Granular Casts (NONE /LPF) 15-25 H Urine Hemoglobin (NEG) NEG Urine Glucose (N MG/DL) NEG 04/22 04/22 04/22 0800 0400 0055 Chemistry Sodium (137 - 145 mmol/L) 143 Potassium (3.5 - 5.1 mmol/L) 3.8 Chloride (98 - 107 mmol/L) 105 Carbon Dioxide (22 - 30 mmol/L) 24 Anion Gap (5 - 16) 14 BUN (7 - 17 mg/dL) 38 H Creatinine (0.5 - 1.0 mg/dL) 2.2 H Estimated GFR (>60 ml/min) 21 L BUN/Creatinine Ratio (7 - 25 %) 17.3 Troponin I (< 0.11 ng/ml) 0.30 *H 0.29 *H Hematology CBC w Diff NO MAN DIFF REQ WBC (4.8 - 10.8 /CUMM) 5.5 RBC (4.20 - 5.40 /CUMM) 3.83 L Hgb (12.0 - 16.0 G/DL) 11.2 L Hct (37 - 47 %) 34.4 L MCV (81.0 - 99.0 FL) 90.0 MCH (27.0 - 31.0 PG) 29.3 MCHC (33.0 - 37.0 G/DL) 32.6 L RDW (11.5 - 14.5 %) 16.5 H Plt Count (130 - 400 /CUMM) 190 MPV (7.4 - 10.4 FL) 8.7 Gran % (42.2 - 75.2 %) 66.5 Lymphocytes % (20.5 - 51.1 %) 17.9 L Monocytes % (1.7 - 9.3 %) 11.6 H Eosinophils % (0 - 5 %) 3.0 Basophils % (0.0 - 2.0 %) 1.0 Absolute Granulocytes (1.4 - 6.5 /CUMM) 3.7 Absolute Lymphocytes (1.2 - 3.4 /CUMM) 1.0 L Absolute Monocytes (0.10 - 0.60 /CUMM) 0.6 Absolute Eosinophils (0.0 - 0.7 /CUMM) 0.2 Absolute Basophils (0.0 - 0.2 /CUMM) 0.1 04/213 6 Toxicology Urine Opiates Screen (>2000 NG/ML) > 4000.00 H Methadone Screen (>300 NG/ML) Cancelled 53 Barbiturate Screen (>200 NG/ML) Cancelled < 60 Ur Phencyclidine Scrn (>25 NG/ML) Cancelled 8.80 Amphetamines Screen (>1000 NG/ML) Cancelled < 100 U Benzodiazepines Scrn (>200 NG/ML) Cancelled < 85 Urine Cocaine Screen (>300 NG/ML) Cancelled < 50 Urine Cannabis Screen (>50 NG/ML) Cancelled < 5.00 Urines Urinalysis MANY H Urine Color (YEL,AMB,STR) YEL Urine Clarity (CLEAR) CLDY H Urine pH (5.0 - 8.0) 6.0 Ur Specific [place] (1.001 - 1.035) 1.025 Urine Protein (NEG,<30 MG/DL) 100 H Urine Ketones (NEG) NEG Urine Nitrite (NEG) NEG Urine Bilirubin (NEG) NEG Urine Urobilinogen (0.1 - 1.0 EU/dl) 0.2 Ur Leukocyte Esterase (NEG) NEG Ur Microscopic SEDIMENT EXAMINED Urine RBC (0 - 5 /HPF) RARE Urine WBC (0 - 2 /HPF) RARE Ur Epithelial Cells (NONE,FEW) FEW Urine Bacteria (NEG/NONE) FEW H Hyaline Casts (0/LPF) 1-3 H Granular Casts (NONE /LPF) 3-5 H Urine Mucus (FEW,NONE) FEW Urine Hemoglobin (NEG) TRACE-INTACT Urine Glucose (N MG/DL) NEG 04/21 1846 Chemistry Sodium (137 - 145 mmol/L) 142 Potassium (3.5 - 5.1 mmol/L) 3.9 Chloride (98 - 107 mmol/L) 103 Carbon Dioxide (22 - 30 mmol/L) 24 Anion Gap (5 - 16) 16 BUN (7 - 17 mg/dL) 39 H Creatinine (0.5 - 1.0 mg/dL) 2.2 H Estimated GFR (>60 ml/min) 21 L BUN/Creatinine Ratio (7 - 25 %) 17.7 Glucose (65 - 99 mg/dL) 127 H Lactic Acid (0.7 - 2.1 mmol/L) 1.2 Calcium (8.4 - 10.2 mg/dL) 9.4 Total Bilirubin (0.2 - 1.3 mg/dL) 0.6 AST (14 - 36 U/L) 26 ALT (9 - 52 U/L) 27 Alkaline Phosphatase (<127 U/L) 59 Troponin I (< 0.11 ng/ml) 0.26 *H [id number] Pept (<125 pg/mL) 82272 H Total Protein (6.3 - 8.2 g/dL) 6.7 Albumin (3.5 - 5.0 g/dL) 3.9 Globulin (1.9 - 4.2 gm/dL) 2.8 Albumin/Globulin Ratio (1.1 - 2.2 %) 1.4 Vitamin B12 (239 - 931 pg/mL) > 1000 H Free T4 (0.85 - 1.93 ng/dL) 1.49 Total T3 (0.97 - 1.69 ng/mL) 0.89 L TSH &T3 &Free T4 Intrp (0.270 - 4.20 uIU/mL) 4.910 H Coagulation PT (9.4 - 12.5 SEC) 15.9 H INR (0.90 - 1.19) 1.45 H APTT (25 - 37 SEC) 30 Hematology CBC w Diff NO MAN DIFF REQ WBC (4.8 - 10.8 /CUMM) 5.6 RBC (4.20 - 5.40 /CUMM) 3.98 L Hgb (12.0 - 16.0 G/DL) 11.7 L Hct (37 - 47 %) 35.7 L MCV (81.0 - 99.0 FL) 89.6 MCH (27.0 - 31.0 PG) 29.3 MCHC (33.0 - 37.0 G/DL) 32.7 L RDW (11.5 - 14.5 %) 16.8 H Plt Count (130 - 400 /CUMM) 194 MPV (7.4 - 10.4 FL) 8.4 Gran % (42.2 - 75.2 %) 68.5 Lymphocytes % (20.5 - 51.1 %) 16.5 L Monocytes % (1.7 - 9.3 %) 12.3 H Eosinophils % (0 - 5 %) 2.1 Basophils % (0.0 - 2.0 %) 0.6 Absolute Granulocytes (1.4 - 6.5 /CUMM) 3.8 Absolute Lymphocytes (1.2 - 3.4 /CUMM) 0.9 L Absolute Monocytes (0.10 - 0.60 /CUMM) 0.7 H Absolute Eosinophils (0.0 - 0.7 /CUMM) 0.1 Absolute Basophils (0.0 - 0.2 /CUMM) 0 Microbiology Date/Time Procedure - Status Source Growth 04/22 1105 Urine Culture - RECD URINE ROUT 04/21 2359 Surveillance Culture - COMP UPPER RESP 04/21 2359 Surveillance Culture - COMP GI 04/21 2319 Respiratory Culture - CAN LOWER RESP Cancelled: NO SAMPLE COLLECTED 04/21 2319 Gram Stain - CAN LOWER RESP Cancelled: NO SAMPLE COLLECTED Impression/Plan Impression/Plan Impression/Plan: Ms Sanford is an 87 year old woman w/ a PMHx of ? 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 Yrvu-ah-pzqxsvzf white matter changes of chronic microangiopathy.Diffuse osteopenia. No evidence of acute fracture or dislocation. Small suprapatellar joint effusion. 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 Chest o-pzy-Rcnrwlprzlqx with pulmonary venous congestion and trace right pleural effusion. No pulmonary edema.ow lung volumes. Previous echocardiogram done in 12/2017- Normal LV chamber size with moderate concentric LVH. The estimated LVEF is 45%. There is global hypokinesis. Mildly calcified mitral valve leaflets and annulus. There is normal leaflet opening. There is mild to moderate mitral regurgitation without prolapse. There is mild aortic insufficiency. There is moderate tricuspid regurgitation. The estimated PA systolic pressure is 45 mmHg. General Appearance somnolent for majority of exam however can be awakened; AA0x2 Skin No Rashes HEENT Atraumatic, PERRLA Neck Supple, No JVD Lymphatic Cervical nl Cardiovascular Normal S1, Normal S2 Lungs crackles in upper lung bur[place]on Abdomen Normal Bowel Sounds, Soft Neurological Strength at 5/5 X4 Ext, Normal Tone Extremities 2+ pitting edema Vascular Normal Pulses Issues AMS now seems to be better of unclear etiology may be due to morphine Acute pulm edema due to HFrEF, now resolved NSTMI with elevated trops, previous cad with reduced ef DM, Urine tox shows narcotics - check home meds OA knee with effusion no evidence of septic knee DM, HLD REC cont to monitor May need neuro consult Check ABG later today May benefit from BIPAP if her PCo2 is high Cardio to see ASA and statin and other antiplatelet rx per cardio Will follow closely d/w Dr Calix, Dr Otto to assume care on the floor
[2018-04-23 15:15] VITALS: BP 110/60
--- NOTE | 2018-04-23 15:51 | Cons- Neurology ---
General Information and HPI Consulting Request Date of Consult: 04/23/18 Requested By: Mary Ellen WALKER,Lei Ayala Reason for Consult: Altered mental status Source of Information: patient, family, old records Exam Limitations: dementia History of Present Illness: 87-year-old patient admitted somnolence as well as auditory hallucinations speaking to people not present in the room. Her son also reported anxiety and significant insomnia. He also reported decreased appetite and thirst. On review of the admission note there were no focal neurologic symptoms. On this morning's evaluation by Dr. Vasquez she was minimally arousable requiring sternal rub. On awakening she was oriented to place but reportedly not to person or time. Currently the patient is awake and speaking with 2 family members. She remains awake without stimulation and is conversant. No current hallucinosis. She admits that she "was not well" but can give a little further information. Her only current complaint is a steady chest pressure. Laboratory evaluation discloses somewhat elevated troponins and renal insufficiency with creatinine which is risen from a baseline of 1.4 in December to 2.2 on presentation and 2.4 currently Urine culture discloses greater than 100,000 colonies of enterococcus Allergies/Medications Allergies: Coded Allergies: No Known Allergies (12/16/17) Home Med List: Aspirin (Ecotrin*) 81 MG TABLET.DR 1 TAB PO DAILY STROKE PREVENTION . Carvedilol 6.25 MG TABLET 1 TAB PO BID HEART (Reported) Clopidogrel Bisulfate (Clopidogrel) 75 MG TABLET 1 TAB PO DAILY HEART ( Reported) Furosemide 40 MG TABLET 1 TAB PO DAILY HEART (Reported) Linagliptin (Tradjenta) 5 MG TABLET 1 TAB PO DAILY DIABETES (Reported) Potassium Chloride 10 MEQ TAB.ER.PRT 1 TAB PO DAILY HEART (Reported) Rosuvastatin Calcium (Crestor) 40 MG TABLET 1 TAB PO DAILY HEART (Reported) Current Medications: Current Medications Sig/Lucia Start time Last Medication Dose Route Stop Time Status Admin Aspirin Buffered 81 MG DAILY 04/22 900 AC 04/23 PO 0851 Atorvastatin Calcium 80 MG 1700 04/22 1700 AC 04/22 PO 1629 Carvedilol 6.25 MG BID 04/22 900 AC 04/22 PO 2039 Clopidogrel Bisulfate 75 MG DAILY 04/22 900 AC 04/23 PO 0851 Furosemide 40 MG DAILY 04/22 900 DC 04/22 IV 1005 Heparin Sodium 5,000 UNIT Q8 04/23 1400 AC 04/23 (Porcine) SC 1304 Heparin Sodium 25,000 UNIT Q24H 04/22 0530 DC 04/22 (Porcine) IV 0636 Sodium Chloride 500 ML Insulin Aspart 0 TIDAC 04/22 1700 AC SC Nystatin 1 RITESH TID 04/22 1400 AC 04/23 TOP 1304 Review of Systems Review of Systems: ROS: A complete medical systems review was obtained. Other than pressure in the chest no pertinent complaints were found. Past History Travel History Traveled to [place] past 21 day No Medical History Neurological: Hallucinations EENT: NONE Cardiovascular: CAD, hypertension, hyperlipidemia, mitral regurgitation Respiratory: NONE Gastrointestinal: NONE Hepatic: NONE Renal: NONE Musculoskeletal: NONE Psychiatric: NONE Endocrine: diabetes Blood Disorders: NONE Surgical History Surgical History: hysterectomy, PACEMAKER Psychosocial History Where Do You Live? Home (dependent on son) Who Do You Live With? child Smoking Status: Former Smoker ETOH Use: denies use Illicit Drug Use: denies illicit drug use Functional Ability Ambulation: walker Employment History Employment: Retired Exam & Diagnostic Data Vital Signs and I&O Vital Signs Date Time Temp Pulse Resp B/P B/P Pulse O2 O2 Flow FiO2 Mean Ox Delivery Rate 04/23 1515 98.7 74 20 110/60 96 04/23 0851 102/63 04/23 0706 98.9 70 20 120/60 95 04/22 2039 73 102/62 04/22 2000 Room Air 04/22 2000 98.2 76 22 100/64 95 Room Air 04/22 1600 93 Room Air Room Air 04/22 1600 96.7 70 20 110/80 93 Room Air Room Air Intake & Output 04/23 1600 04/23 0800 04/23 0000 Intake Total 360 240 Output Total 350 300 650 Balance 10 -300 -410 Intake, Oral 360 240 Number 1 0 Bowel Movements Output, Urine 350 300 650 Patient 189 lb Weight Physical Exam: On exam the patient appeared generally well and in no distress. No carotid bruits and no cardiac murmur. No peripheral edema Mental status: Awake, conversant, no hallucinosis, no language errors and no dysarthria. She was oriented to her name, a hospital and 2018 but not month or date. She could name the last 3 presidents only. Funduscopic not visualized, high ambient light and small pupils Visual [place] full , Eye movements full without nystagmus, pupils 3mm equal round and reactive to light. Facial movement normal bilaterally Facial sensation normal bilaterally Hearing intact bilaterally Uvula elevates midline Tongue protrusion is midline Shoulder shrug symmetric Motor power and tone normal in all 4 extremities Sensation intact to primary modes Tendon reflexes normal and symmetric, left Babinski sign present Coordination no ataxia Gait [testing deferred] Last 48 Hours of Lab Results: Laboratory Tests 04/23 04/23 04/23 1100 0617 0500 Chemistry Sodium (137 - 145 mmol/L) 143 Potassium (3.5 - 5.1 mmol/L) 3.8 Chloride (98 - 107 mmol/L) 103 Carbon Dioxide (22 - 30 mmol/L) 22 Anion Gap (5 - 16) 18 H BUN (7 - 17 mg/dL) 40 H Creatinine (0.5 - 1.0 mg/dL) 2.4 H Estimated GFR (>60 ml/min) 19 L Glucose (65 - 99 mg/dL) 79 Calcium (8.4 - 10.2 mg/dL) 9.1 Phosphorus (2.5 - 4.5 mg/dL) 4.4 Magnesium (1.6 - 2.3 mg/dL) 2.0 Total Bilirubin (0.2 - 1.3 mg/dL) 0.9 AST (14 - 36 U/L) 27 ALT (9 - 52 U/L) 30 Troponin I (< 0.11 ng/ml) Cancelled 0.37 *H Albumin (3.5 - 5.0 g/dL) 3.5 Hematology CBC w Diff NO MAN DIFF REQ WBC (4.8 - 10.8 /CUMM) 5.9 RBC (4.20 - 5.40 /CUMM) 3.63 L Hgb (12.0 - 16.0 G/DL) 10.8 L Hct (37 - 47 %) 32.6 L MCV (81.0 - 99.0 FL) 89.9 MCH (27.0 - 31.0 PG) 29.6 MCHC (33.0 - 37.0 G/DL) 33.0 RDW (11.5 - 14.5 %) 16.3 H Plt Count (130 - 400 /CUMM) 186 MPV (7.4 - 10.4 FL) 8.7 Gran % (42.2 - 75.2 %) 74.4 Lymphocytes % (20.5 - 51.1 %) 14.4 L Monocytes % (1.7 - 9.3 %) 9.2 Eosinophils % (0 - 5 %) 1.2 Basophils % (0.0 - 2.0 %) 0.8 Absolute Granulocytes (1.4 - 6.5 /CUMM) 4.4 Absolute Lymphocytes (1.2 - 3.4 /CUMM) 0.9 L Absolute Monocytes (0.10 - 0.60 /CUMM) 0.5 Absolute Eosinophils (0.0 - 0.7 /CUMM) 0.1 Absolute Basophils (0.0 - 0.2 /CUMM) 0 04/22 04/22 04/22 2115 1615 1137 Chemistry Troponin I (< 0.11 ng/ml) 0.29 *H Coagulation APTT (25 - 37 SEC) Cancelled > 120 *H 04/22 04/22 1105 0800 Chemistry Troponin I (< 0.11 ng/ml) 0.30 *H Urines Urinalysis MOD H Urine Color (YEL,AMB,STR) YEL Urine Clarity (CLEAR) HAZY H Urine pH (5.0 - 8.0) 6.0 Ur Specific [place] (1.001 - 1.035) 1.025 Urine Protein (NEG,<30 MG/DL) 30 H Urine Ketones (NEG) NEG Urine Nitrite (NEG) NEG Urine Bilirubin (NEG) NEG Urine Urobilinogen (0.1 - 1.0 EU/dl) 0.2 Ur Leukocyte Esterase (NEG) NEG Ur Microscopic SEDIMENT EXAMINED Urine RBC (0 - 5 /HPF) 1-3 Urine WBC (0 - 2 /HPF) 5-10 H Ur Epithelial Cells (NONE,FEW) RARE Urine Bacteria (NEG/NONE) MANY H Granular Casts (NONE /LPF) 15-25 H Urine Hemoglobin (NEG) NEG Urine Glucose (N MG/DL) NEG 04/22 04/22 04/21 0400 0055 2233 Chemistry Sodium (137 - 145 mmol/L) 143 Potassium (3.5 - 5.1 mmol/L) 3.8 Chloride (98 - 107 mmol/L) 105 Carbon Dioxide (22 - 30 mmol/L) 24 Anion Gap (5 - 16) 14 BUN (7 - 17 mg/dL) 38 H Creatinine (0.5 - 1.0 mg/dL) 2.2 H Estimated GFR (>60 ml/min) 21 L BUN/Creatinine Ratio (7 - 25 %) 17.3 Troponin I (< 0.11 ng/ml) 0.29 *H Hematology CBC w Diff NO MAN DIFF REQ WBC (4.8 - 10.8 /CUMM) 5.5 RBC (4.20 - 5.40 /CUMM) 3.83 L Hgb (12.0 - 16.0 G/DL) 11.2 L Hct (37 - 47 %) 34.4 L MCV (81.0 - 99.0 FL) 90.0 MCH (27.0 - 31.0 PG) 29.3 MCHC (33.0 - 37.0 G/DL) 32.6 L RDW (11.5 - 14.5 %) 16.5 H Plt Count (130 - 400 /CUMM) 190 MPV (7.4 - 10.4 FL) 8.7 Gran % (42.2 - 75.2 %) 66.5 Lymphocytes % (20.5 - 51.1 %) 17.9 L Monocytes % (1.7 - 9.3 %) 11.6 H Eosinophils % (0 - 5 %) 3.0 Basophils % (0.0 - 2.0 %) 1.0 Absolute Granulocytes (1.4 - 6.5 /CUMM) 3.7 Absolute Lymphocytes (1.2 - 3.4 /CUMM) 1.0 L Absolute Monocytes (0.10 - 0.60 /CUMM) 0.6 Absolute Eosinophils (0.0 - 0.7 /CUMM) 0.2 Absolute Basophils (0.0 - 0.2 /CUMM) 0.1 Toxicology Methadone Screen Cancelled Barbiturate Screen Cancelled Ur Phencyclidine Scrn Cancelled Amphetamines Screen Cancelled U Benzodiazepines Scrn Cancelled Urine Cocaine Screen Cancelled Urine Cannabis Screen Cancelled 04/21 2126 Toxicology Urine Opiates Screen (>2000 NG/ML) > 4000.00 H Methadone Screen (>300 NG/ML) 53 Barbiturate Screen (>200 NG/ML) < 60 Ur Phencyclidine Scrn (>25 NG/ML) 8.80 Amphetamines Screen (>1000 NG/ML) < 100 U Benzodiazepines Scrn (>200 NG/ML) < 85 Urine Cocaine Screen (>300 NG/ML) < 50 Urine Cannabis Screen (>50 NG/ML) < 5.00 Urines Urinalysis MANY H Urine Color (YEL,AMB,STR) YEL Urine Clarity (CLEAR) CLDY H Urine pH (5.0 - 8.0) 6.0 Ur Specific [place] (1.001 - 1.035) 1.025 Urine Protein (NEG,<30 MG/DL) 100 H Urine Ketones (NEG) NEG Urine Nitrite (NEG) NEG Urine Bilirubin (NEG) NEG Urine Urobilinogen (0.1 - 1.0 EU/dl) 0.2 Ur Leukocyte Esterase (NEG) NEG Ur Microscopic SEDIMENT EXAMINED Urine RBC (0 - 5 /HPF) RARE Urine WBC (0 - 2 /HPF) RARE Ur Epithelial Cells (NONE,FEW) FEW Urine Bacteria (NEG/NONE) FEW H Hyaline Casts (0/LPF) 1-3 H Granular Casts (NONE /LPF) 3-5 H Urine Mucus (FEW,NONE) FEW Urine Hemoglobin (NEG) TRACE-INTACT Urine Glucose (N MG/DL) NEG 04/21 1846 Chemistry Sodium (137 - 145 mmol/L) 142 Potassium (3.5 - 5.1 mmol/L) 3.9 Chloride (98 - 107 mmol/L) 103 Carbon Dioxide (22 - 30 mmol/L) 24 Anion Gap (5 - 16) 16 BUN (7 - 17 mg/dL) 39 H Creatinine (0.5 - 1.0 mg/dL) 2.2 H Estimated GFR (>60 ml/min) 21 L BUN/Creatinine Ratio (7 - 25 %) 17.7 Glucose (65 - 99 mg/dL) 127 H Lactic Acid (0.7 - 2.1 mmol/L) 1.2 Calcium (8.4 - 10.2 mg/dL) 9.4 Total Bilirubin (0.2 - 1.3 mg/dL) 0.6 AST (14 - 36 U/L) 26 ALT (9 - 52 U/L) 27 Alkaline Phosphatase (<127 U/L) 59 Troponin I (< 0.11 ng/ml) 0.26 *H Cye-[id number]-Uglsnpdphix Pept (<125 pg/mL) 80547 H Total Protein (6.3 - 8.2 g/dL) 6.7 Albumin (3.5 - 5.0 g/dL) 3.9 Globulin (1.9 - 4.2 gm/dL) 2.8 Albumin/Globulin Ratio (1.1 - 2.2 %) 1.4 Vitamin B12 (239 - 931 pg/mL) > 1000 H Free T4 (0.85 - 1.93 ng/dL) 1.49 Total T3 (0.97 - 1.69 ng/mL) 0.89 L TSH &T3 &Free T4 Intrp (0.270 - 4.20 uIU/mL) 4.910 H Coagulation PT (9.4 - 12.5 SEC) 15.9 H INR (0.90 - 1.19) 1.45 H APTT (25 - 37 SEC) 30 Hematology CBC w Diff NO MAN DIFF REQ WBC (4.8 - 10.8 /CUMM) 5.6 RBC (4.20 - 5.40 /CUMM) 3.98 L Hgb (12.0 - 16.0 G/DL) 11.7 L Hct (37 - 47 %) 35.7 L MCV (81.0 - 99.0 FL) 89.6 MCH (27.0 - 31.0 PG) 29.3 MCHC (33.0 - 37.0 G/DL) 32.7 L RDW (11.5 - 14.5 %) 16.8 H Plt Count (130 - 400 /CUMM) 194 MPV (7.4 - 10.4 FL) 8.4 Gran % (42.2 - 75.2 %) 68.5 Lymphocytes % (20.5 - 51.1 %) 16.5 L Monocytes % (1.7 - 9.3 %) 12.3 H Eosinophils % (0 - 5 %) 2.1 Basophils % (0.0 - 2.0 %) 0.6 Absolute Granulocytes (1.4 - 6.5 /CUMM) 3.8 Absolute Lymphocytes (1.2 - 3.4 /CUMM) 0.9 L Absolute Monocytes (0.10 - 0.60 /CUMM) 0.7 H Absolute Eosinophils (0.0 - 0.7 /CUMM) 0.1 Absolute Basophils (0.0 - 0.2 /CUMM) 0 Imaging/Other Studies: CT scan of the head: No acute intracranial pathology. [id number] white matter changes of chronic microangiopathy. Assessment/Plan Assessment: Encephalopathy, toxic, due to enterococcal urinary tract infection and/or rising creatinine.. No indication of stroke or other acute neurologic process. Some degree of dementia evident on the current mental status exam and forgetfulness confirmed by the family. B12 and thyroid studies normal, may have vascular or early degenerative dementia. Psychotic depression or other psychiatric illness presenting with hallucinations should be considered Recommendations: Recommended treatment of the UTI with antibiotics in view of the altered mental status EEG Psychiatric consultation Consult Acknowledgment - Thank you for your consult request.
[2018-04-23 22:00] VITALS: BP 112/56
[2018-04-24 06:00] VITALS: BP 118/68
--- NOTE | 2018-04-24 06:54 | PN- Housestaff ---
Travis Vasquez 04/24/18 0654: Subjective Follow-up For: Altered Mental Status CHF CKD Subjective: Patient seen and examiend at bedside this morning. Patient significantly improved from a mental status stand point this morning. She is alert to person, place and time this morning. Patient denies any significant pain and claims to have been eating more. Has been seen by physical therapy today. Desouza placed. Review of Systems Constitutional: Denies: see HPI. Objective Last 24 Hrs of Vital Signs/I&O Vital Signs Date Time Temp Pulse Resp B/P B/P Pulse O2 O2 Flow FiO2 Mean Ox Delivery Rate 04/24 812 98.3 66 20 118/68 04/24 0600 98.3 66 20 118/68 94 04/23 2200 98.6 66 18 112/56 96 Room Air 04/23 2034 66 112/56 04/23 1515 98.7 74 20 110/60 96 Intake & Output 04/24 1600 04/24 0800 04/24 0000 Intake Total Output Total 300 Balance -300 Number 1 Bowel Movements Output, Urine 300 Patient 186 lb Weight Weight Bed scale Measurement Method Physical Exam General Appearance: Alert, Oriented X3, Cooperative, Patient alert to person place and time this mrlinda Skin: No Rashes, No Breakdown HEENT: Atraumatic, PERRLA, EOMI Neck: Supple, No JVD, +2 Carotid Pulse wo Bruit, No LAD Cardiovascular: Normal S1, Normal S2 Lungs: Clear to Auscultation, Normal Air Movement Abdomen: Normal Bowel Sounds, Soft, No Tenderness Neurological: Normal Speech, Patient alert and oriented to person place and time this morning, Strength: 4/5 in upper extremities Extremities: No Clubbing, No Cyanosis, No Edema, Minimal lower extremity edema noted; pain on palpation Vascular: Normal Pulses Current Medications: Current Medications Sig/Lucia Start time Last Medication Dose Route Stop Time Status Admin Ampicillin 500 MG Q12H 04/23 1800 AC 04/24 PO 0545 Aspirin Buffered 81 MG DAILY 04/22 900 AC 04/24 PO 08 Atorvastatin Calcium 80 MG 1700 04/22 1700 AC 04/23 PO 1751 Carvedilol 6.25 MG BID 04/22 900 AC 04/24 PO 08 Clopidogrel Bisulfate 75 MG DAILY 04/22 900 AC 04/24 PO 08 Furosemide 40 MG DAILY 04/22 900 DC 04/22 IV 1005 Heparin Sodium 5,000 UNIT Q8 04/23 1400 AC 04/24 (Porcine) SC 0545 Insulin Aspart 0 TIDAC 04/22 1700 AC SC Nitrofurantoin 100 MG BID 04/23 1630 DC PO Nystatin 1 RITESH TID 04/22 1400 AC 04/24 TOP 0813 Patient Medication 1 ED ONE ONE 04/23 1715 DC 04/23 Teaching ED 04/23 1716 1756 Last 24 Hrs of Lab/Jose Juan Results Last 24 Hrs of Labs/Mics: Laboratory Tests 04/24/18 0643: Anion Gap 14, Estimated GFR 22 L, BUN/Creatinine Ratio 18.1, CBC w Diff NO MAN DIFF REQ, RBC 3.70 L, MCV 89.5, MCH 29.8, MCHC 33.3, RDW 17.1 H, MPV 8.6, Gran % 73.2, Lymphocytes % 14.3 L, Monocytes % 10.6 H, Eosinophils % 1.3, Basophils % 0.6, Absolute Granulocytes 4.5, Absolute Lymphocytes 0.9 L, Absolute Monocytes 0.7 H, Absolute Eosinophils 0.1, Absolute Basophils 0 Assessment/Plan Assessment: A/P: Patient is an 87 year old female with past medical history of undiagnosed dementia, type 2 DM, CAD (s/p BMS stent in 2010), 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 Pateint came to ED for altered mental status/hallucinations for 3 weeks and increasing cough. Patient found to have elevated troponins and BNP in setting of weight gain. Elevated troponins likely due to demand ischemia with CHF/CKD. Pulmonology: Dr. Hyde Cardiology: Dr. Singh Psychiatry: Dr. Riddle Neurology: Dr. Arreguin Patient and son refusing STR at this time Altered Mental Status * Appreciate psychiatry consultation with Dr. Riddle; has seen and evaluated the patient; recommends to continue to reorient the patient to day and night for her natrual cicardian rhythm; combination of a delerium and progressing dementia; however patient was alert to person, place and time * Appreciate neurology consultation with Dr. Arreguin; has recommended to continue treatmetn of UTI (ampicillin); EEG and psychiatry follow up * Mental status significantly improving; patient more alert and verbalizing * UA CX: Enterococcus being treated for Ampicillin * Positive utox for opiates on admission; may be due to previous prescribed cough medication that is unclear Acute on Chronic CHF * patients renal function improving to a creatinine of 2.1 which seems to be her baseline * No significant evidence of lower extremity edema, chest pain or shortness of breath; will hold Lasix for now Type 2 UT * troponins elevated in setting of CHF and CKD; cardiology on board * patient doing alot better; continue current management * heparin SC; continue aspirin, plavix and beta donna and statin Deconditioning * will follow up with PT * Patient and son refusing STR at this time Code Status: DNR/DNI DVT PPx: ALPS Diet: Regular Pain: as per pain pathway Problem List: 1. CHF (congestive heart failure) 2. Acute renal injury 3. Altered mental status Pain Ratin Pain Location: Denies pain this morning Pain Goal: Remain pain free Pain Plan: per pain pathway Tomorrow's Labs & Rationales: CBC BEP DVT/Prophylaxis: pharmacological Aroldo Otto 04/24/18 1139: Attending MD Review Statement Attending Statement Attending MD Statement: examined this patient, discuss w/resident/PA/SKULL CHOPPER, agreed w/resident/PA/SKULL CHOPPER, reviewed EMR data (avail), discussed with nursing, discussed with case mgmt Attending Assessment/Plan: 87 year old woman with PMHx of ? 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 Pt was initially admitted to ICU and then transferred to floor. Altered mental stauts/ Encephalopathy secondary likely due to meds. Pts utox was positive for opiates. pt son says pt was taking cough medicine with codeine at home. Mental status improving now and pt is more alert and verbalizing. she is not alert and oriented fully. Likely combination of metablolic and infectious encephalopathy sec to UTI. Type 2 UT- Trop elevation in setting of chf and ckd, cardiology following. pt doing better now. cont current medical managment. heparin drip stopped. pt on sc heparin. cont asa, plavix, b donna and statin. Acute on chronic systolic chf- cont to hold lasix for now. Cr improving. will f /u her renal functions closely. OTILIO - cr down to 2.1 and resolving. Better from 2.4 yesterday. will cont to hold lasix. Deconditioning- will get PT consult . Pt refusing STR.
[2018-04-24 08:27] LABS: ABSOLUTE BASOPHIL COUNT 0 /CUMM (0.0-0.2); ABSOLUTE EOSINOPHIL COUNT 0.1 /CUMM (0.0-0.7); ABSOLUTE GRANULOCYTE CT 4.5 /CUMM (1.4-6.5); ABSOLUTE LYMPH COUNT 0.9 /CUMM (1.2-3.4); ABSOLUTE MONOCYTE COUNT 0.7 /CUMM (0.10-0.60); BASOPHIL % 0.6 % (0.0-2.0); EOSINOPHIL % 1.3 % (0-5); GRANULOCYTE % 73.2 % (42.2-75.2); HEMATOCRIT 33.1 % (37-47); MEAN CORPUSCULAR HGB 29.8 PG (27.0-31.0); MEAN CORPUSCULAR HGB CONC 33.3 G/DL (33.0-37.0); MEAN CORPUSCULAR VOLUME 89.5 FL (81.0-99.0); MEAN PLATELET VOLUME 8.6 FL (7.4-10.4); PLATELET COUNT 181 /CUMM (130-400); RBC DISTRIBUTION WIDTH 17.1 % (11.5-14.5); WHITE BLOOD CELL COUNT 6.2 /CUMM (4.8-10.8)
--- NOTE | 2018-04-24 10:22 | Cons- Psychiatry ---
Psychiatric Consult Date of Consult: 04/23/18 (16:55) Reason for Consult: 87 you F with AMS/hallucinations in context of 3 wk deterioration, cough, possible UTI, opiate pos, uptrending troponin. Requested by Dr Otto/Dr Vasquez pgr [phone] History of Present Illness: 87 yo WH with h/o CAD/NSTEMI with stent placement in 2010 with EF35% and pacemaker, OTILIO on CKD, T2DM, CHF presenting to ED with 3 wks worsening AMS and then hallucinations, taking codeine-cough syrup and her medical meds, without formal psychatric history. Pt initially monitored on ICU for rising troponins/ BNP and acute pumonary edema. Pt stepped-down to floor, where pt was currently interviewed. At this time, pt is on day 3 of admission, found to have enterococcus+ UA and started on ampicillin. Fluids are being stabilized, on room air. Neuro, Pulm and Card consulted. No concern for acute neuro/focal process. On exam, pt was seated in Paz-chair having just completed PT eval. Pt pleasant and in agreement with psych consultation. Pt stated that she was feeling "very off" for several weeks and this was similar to previous admission for UTI related delirium a couple months ago. Pt denied any memory of or current hallucinations, but did state she was having "very strange" but non-threatening or frightening dreams, that she states may have been during waking as well. Pt denies SI/HI/AVH/SIB current or historically, other than "staying something dumb " recently when she made the comment that "If I have to live like this, I might as well just go ()." She clarifies that this was only said when she was acutely ill and in reference to a natural . She states that "I treasure life...I love it!" and that she a a warm and supportive family, a good life and a strong Gnosticist trudy. She feels that her son and daughter in law, with whom she lives, are kind and protective of her. Pt denies any abuse, h/o substance misuse, lifetime nonsmoker, in 2012. Pt states that her sleep was "all mixed up...up all night restless" over the last few weeks, but typically sleep from 9pm until 8-10 am. Pt denied ssx depression, merrill, psychosis, trauma other than current likely delirium. Pt oriented to self and place, 2018, but thinks it fall/July. Pt feels much improved today compared to the last several days. Unable to state what medical cares are being done but understands need to be in hospital but hoping for d/c home on Sunday. Pt able to reiterate medical treatment logically once explained. Pt declined to complete written components of MMSE d/t "shaky hands." Patient reported that her knees and legs have been quite swollen prior to admission. Discussed with Dr Shukla, RN and machine learning intern, pt appears much better today after starting abx and diuresis. Pt has not been acutely agitated and has not needed any emergency medications for agitation. Allergies: Coded Allergies: No Known Allergies (12/16/17) Current Medications: Current Medications Sig/Lucia Start time Last Medication Dose Route Stop Time Status Admin Ampicillin 500 MG Q12H 04/23 1800 AC 04/24 PO 0545 Aspirin Buffered 81 MG DAILY 04/22 0900 AC 04/24 PO 0812 Atorvastatin Calcium 80 MG 1700 04/22 1700 AC 04/23 PO 1751 Carvedilol 6.25 MG BID 04/22 0900 AC 04/24 PO 0812 Clopidogrel Bisulfate 75 MG DAILY 04/22 0900 AC 04/24 PO 0812 Furosemide 40 MG DAILY 04/22 0900 DC 04/22 IV 1005 Heparin Sodium 5,000 UNIT Q8 04/23 1400 AC 04/24 (Porcine) SC 0545 Insulin Aspart 0 TIDAC 04/22 1700 AC SC Nitrofurantoin 100 MG BID 04/23 1630 DC PO Nystatin 1 RITESH TID 04/22 1400 AC 04/24 TOP 0813 Patient Medication 1 ED ONE ONE 04/23 1715 DC 04/23 Teaching ED 04/23 1716 1756 Past History Past Medical History Neurological: Hallucinations EENT: NONE Cardiovascular: CAD, CHF, hypertension, hyperlipidemia, mitral regurgitation, NSTEMI, pacemaker Respiratory: acute pulmonary edema Gastrointestinal: NONE Hepatic: NONE Renal: OTILIO Musculoskeletal: NONE Psychiatric: past delirium with UTI Endocrine: T2DM Blood Disorders: anemia Past Surgical History Surgical History: hysterectomy, PACEMAKER Psychosocial History Strengths/Capabilities: supportive family, no formal psych hx, no hx of SI/HI/SIB, in agreement with treatment plan Physical Limitations (Interventions): limited mobility d/t age Psychiatric Treatment History Psych Treatment Psychiatric Treatment No Diagnosis: delirium secondary to UTI, polypharmacy, poor perfusion (CAD EF 35%, pulmonary edema), likely on chronic dementia Risk Factors: poor impulse control Substance Use/Abuse History Drug Use/Abuse Substances Used/Abused No Substance Abuse Treatment Substance Abuse Treatment Past Substance Abuse [place] No Assessment/Plan Mental Status Orientation: Person, Place (2018, but fall/Jul) Affect: Appropriate (calm cooperative and pleasant), WNL Speech: WNL (moderate rate/volume, fluent) Neuro-vegetative: Concentration Poor Mental Status Exam: GENERAL: Alert and oriented x2 but thought it was July/fall, good eye contact, well-groomed, pleasant with bilateral hand tremor, seated in Paz chair, no apparent distress SPEECH: Moderate rate and volume, normal prosody, fluent MOTOR: No tics, bilateral coarse hand tremor tremors, no stereotypy or other abnormal movements MOOD: "Much better now" AFFECT: Calm, cooperative, pleasant, Mood congruent, good range, non-labile, well related THOUGHT PROCESS: Logical, linear and goal-directed THOUGHT CONTENT: No SI/HI/AVH/SIB, no apparent grandiosity, paranoia, delusions , obsessions, ruminations COGNITION: Mild deficits in attention, memory and concentration JUDGMENT: fair INSIGHT: fair and apparently improving Lab Results: Laboratory Tests 04/24/18 0643: Anion Gap 14, Estimated GFR 22 L, BUN/Creatinine Ratio 18.1, CBC w Diff NO MAN DIFF REQ, RBC 3.70 L, MCV 89.5, MCH 29.8, MCHC 33.3, RDW 17.1 H, MPV 8.6, Gran % 73.2, Lymphocytes % 14.3 L, Monocytes % 10.6 H, Eosinophils % 1.3, Basophils % 0.6, Absolute Granulocytes 4.5, Absolute Lymphocytes 0.9 L, Absolute Monocytes 0.7 H, Absolute Eosinophils 0.1, Absolute Basophils 0 04/23/18 1100: Troponin I Cancelled 04/23/18 0617: CBC w Diff NO MAN DIFF REQ, RBC 3.63 L, MCV 89.9, MCH 29.6, MCHC 33.0, RDW 16.3 H, MPV 8.7, Gran % 74.4, Lymphocytes % 14.4 L, Monocytes % 9.2, Eosinophils % 1.2, Basophils % 0.8, Absolute Granulocytes 4.4, Absolute Lymphocytes 0.9 L, Absolute Monocytes 0.5, Absolute Eosinophils 0.1, Absolute Basophils 0 04/23/18 0500: Anion Gap 18 H, Estimated GFR 19 L, Glucose 79, Calcium 9.1, Phosphorus 4.4, Magnesium 2.0, Total Bilirubin 0.9, AST 27, ALT 30, Troponin I 0.37 *H, Albumin 3.5 04/22/18 2115: APTT Cancelled 04/22/18 1615: Troponin I 0.29 *H 04/22/18 1137: APTT > 120 *H 04/22/18 1105: Urinalysis MOD H, Urine Color YEL, Urine Clarity HAZY H, Urine pH 6.0, Ur Specific [place] 1.025, Urine Protein 30 H, Urine Ketones NEG, Urine Nitrite NEG, Urine Bilirubin NEG, Urine Urobilinogen 0.2, Ur Leukocyte Esterase NEG, Ur Microscopic SEDIMENT EXAMINED, Urine RBC 1-3, Urine WBC 5-10 H, Ur Epithelial Cells RARE, Urine Bacteria MANY H, Granular Casts 15-25 H, Urine Hemoglobin NEG, Urine Glucose NEG Diffential Diagnosis: Dilirium, other neurological process (CVA/trauma-especially on anticoagulant, vasculitides), metabolic encephalopathy (OTILIO, dehydration, sodium has been stable, liver function within normal limits), worsening dementia, intoxication ( opiate pos likely from codeine cough syrup), other underlying psychiatic disorder (psychosis, but no h/o other than context of infection) Impression: 87 yo WH with h/o CAD/NSTEMI with stent placement in 2010 with EF35% and pacemaker, OTILIO on CKD, T2DM, CHF presenting to ED with 3 wks worsening AMS and then hallucinations, taking codeine-cough syrup and her medical meds, without formal psychatric history. At this time, patient appears to be mostly cleared, however with some continued mild delirium versus baseline dementia. Patient continues to have some word finding trouble, poor concentration and memory loss however it is uncertain how close assisting her baseline. Patient has not been agitated and is in agreement with hospital treatment. There is no evidence of SI/HI/AVH/SIB at this time. Addressing the underlying causes of metabolic derangement, poor perfusion and infection have likely led to rapid improvement in delirium. Would continue as you are doing. There does not appear to be an underlying psychiatric cause other than acute delirium possibly on a long-term major neurocognitive disorder (mild dementia). -Would minimize polypharmacy as much as possible, using particular caution with psychoactive medications (would avoid opiate cough syrup, would avoid benzos and anticholinergics in this 87-year-old woman) -At this time, there does not appear to be a need for any emergency agitation medication recommendations, but if this arises, would use conservative low doses -Would continue to involve family in treatment decisions, patient does not appear to have full medical decision-making capacity at this point since she is unable to fully articulate risks and benefits of treatment and may likely continue to wax and wane until delirium is fully cleared -Would maintain circadian cycle (lights off/blinds down at night, lights on/ blinds up/minimal napping during day), and continue to reorient patient at each encounter -continue to monitor for fall risk, especially on anticoagulant -Patient may benefit from outpatient neurology for management of possible dementia, will defer to neuro team Please feel free to contact Psychiatry Consult/Liaison weekdays 8:30a-4:30p at pager [phone], or on-call Psychiatrist (via CPS) nights/weekends with questions.
--- NOTE | 2018-04-24 11:19 | PN- Cardiology ---
Subjective Subjective: The patient is awake, alert, improved mentation from yesterday The events of the last 24 hours as well as telemetry were reviewed. Review of Systems: The review of systems is negative for chest pains, palpitations nor lightheadedness. The remainder of the 14 point review of systems is noncontributory with the exception of above. Objective Vital Signs and I&Os Vital Signs Date Time Temp Pulse Resp B/P B/P Pulse O2 O2 Flow FiO2 Mean Ox Delivery Rate 04/24 0812 98.3 66 20 118/68 04/24 0600 98.3 66 20 118/68 94 / 2200 98.6 66 18 112/56 96 Room Air 04/23 2034 66 112/56 04/23 1515 98.7 74 20 110/60 96 Intake & Output 04/24 1600 04/24 0000 04/23 1600 04/23 0000 Intake Total 360 240 Output Total 300 350 300 650 Balance -300 10 -300 -410 Intake, Oral 360 240 Number 1 1 0 Bowel Movements Output, Urine 300 350 300 650 Patient 186 lb 189 lb Weight Weight Bed scale Measurement Method Physical Exam: General: Nontoxic, no apparent distress. HEENT: Sclera and conjunctiva within normal limits, without xanthelasmas. Neck: Carotids 2+ without bruits. Respiratory: Clear to auscultation, air movement is good, without accessory respiratory muscle use. Heart: Regular rate and rhythm, without murmurs, without JVD. Abdomen: Soft, nontender, no masses, normoactive bowel sounds. Extremities: Without clubbing, cyanosis, without edema. Neuro: Nonfocal exam, strength, 5 out of 5 Skin: Within normal limits without lesions. Psych: Mood and affect: Normal Current Medications: Current Medications Sig/Lucia Start time Last Medication Dose Route Stop Time Status Admin Ampicillin 500 MG Q12H 04/23 1800 AC 04/24 PO 0545 Aspirin Buffered 81 MG DAILY 04/22 900 AC 04/24 PO 08 Atorvastatin Calcium 80 MG 1700 04/22 1700 AC 04/23 PO 1751 Carvedilol 6.25 MG BID 04/22 900 AC 04/24 PO 0812 Clopidogrel Bisulfate 75 MG DAILY 04/22 900 AC 04/24 PO 08 Furosemide 40 MG DAILY 04/22 900 DC 04/22 IV 1005 Heparin Sodium 5,000 UNIT Q8 04/23 1400 AC 04/24 (Porcine) SC 0545 Insulin Aspart 0 TIDAC 04/22 1700 AC SC Nitrofurantoin 100 MG BID 04/23 1630 DC PO Nystatin 1 RITESH TID 04/22 1400 AC 04/24 TOP 0813 Patient Medication 1 ED ONE ONE 04/23 1715 DC 04/23 Teaching ED 04/23 1716 1756 Results Last 48 Hrs of Labs/Mics: Laboratory Tests 04/24/18 0643: Anion Gap 14, Estimated GFR 22 L, BUN/Creatinine Ratio 18.1, CBC w Diff NO MAN DIFF REQ, RBC 3.70 L, MCV 89.5, MCH 29.8, MCHC 33.3, RDW 17.1 H, MPV 8.6, Gran % 73.2, Lymphocytes % 14.3 L, Monocytes % 10.6 H, Eosinophils % 1.3, Basophils % 0.6, Absolute Granulocytes 4.5, Absolute Lymphocytes 0.9 L, Absolute Monocytes 0.7 H, Absolute Eosinophils 0.1, Absolute Basophils 0 04/23/18 1100: Troponin I Cancelled 04/23/18 0617: CBC w Diff NO MAN DIFF REQ, RBC 3.63 L, MCV 89.9, MCH 29.6, MCHC 33.0, RDW 16.3 H, MPV 8.7, Gran % 74.4, Lymphocytes % 14.4 L, Monocytes % 9.2, Eosinophils % 1.2, Basophils % 0.8, Absolute Granulocytes 4.4, Absolute Lymphocytes 0.9 L, Absolute Monocytes 0.5, Absolute Eosinophils 0.1, Absolute Basophils 0 04/23/18 0500: Anion Gap 18 H, Estimated GFR 19 L, Glucose 79, Calcium 9.1, Phosphorus 4.4, Magnesium 2.0, Total Bilirubin 0.9, AST 27, ALT 30, Troponin I 0.37 *H, Albumin 3.5 04/22/18 2115: APTT Cancelled 04/22/18 1615: Troponin I 0.29 *H 04/22/18 1137: APTT > 120 *H Assessment/Plan Assessment/Plan 87-year-old woman with a past medical history of coronary artery disease (status post stenting to the LAD in 2010), mitral regurgitation, a dilated cardiomyopathy with an LVEF of 45%, type2 DM, SSS (s/p medtronic pacemaker), as well as chronic congestive heart failure secondary to systolic dysfunction. She presents to our hospital with altered mental status, described as hallucinations by her son, she was as well noted to have an elevated troponin isoenzyme as well as significantly elevated BNP, in the setting of an approximate 20 pound weight gain over a period of 4 weeks. Elevated troponin isoenzyme: The patient presents with an elevated troponin isoenzymes; however, in the setting of acute on chronic kidney injury, and without ischemic EKG changes nor complaints. Overall, her enzyme elevation is flat, and she demonstrated elevations on her previous admissions as well. Her presentation is not consistent with an acute coronary syndrome rather, chronic troponin isoenzyme elevation in the setting of renal dysfunction and acute congestive heart failure. We will continue with a conservative management approach. Aspirin as well as beta blockers (Coreg) will be maintained and a statin. Further follow-up of troponin isoenzymes does not need to be maintained Acute on chronic congestive heart failure: The patient had an approximate 20 pound weight gain over the past 4 weeks. This likely represents fluid overload and a component of acute on chronic congestive heart failure secondary to combined diastolic and systolic dysfunction. She is improved following diuresis, and has had an approximate 1.5 L net output. We will target on diuresing further, maintaining an overall net negative of approximately 1 L per day if renal function allows. Altered mental status: The patient had altered mental status on presentation. Neurology input has been reviewed and appreciated. Etiology may be secondary to a UTI, and is now improved. Continue telemetry? Yes
[2018-04-24 14:42] VITALS: BP 106/52
--- NOTE | 2018-04-24 15:45 | Discharge Summary ---
Visit Information Visit Dates Admission Date: 04/21/18 Discharge Date: 04/28/18 Hospital Course Course Attending Physician: Clarita WALKER,Aroldo Ayala Primary Care Physician: Melvin Kyle MD Hospital Course: Patient is a 87 year old female with past medical history of coronary artery disease (non-ST segement elevation NH in 2010, status post bare metal stent to LAD), mitral regurgitation and ischemic, dilated cardiomyopathy (LVEF 45%), hyperlipidemia and CHD secondary to systolic dysfunction, bradyarrhythmia status post medtronic pacemaker implant and Type 2 Diabetes Mellitus who presented to the ED with a cheif complaint of altered mental status as per family. Patient was minimally alert during encounter on admission and majority of history was provided by her son. For the past year few weeks, the son stated patient has been experiencing hallucinations including speaking to individuals not present in the room. Last seen normal a month prior to admission. The son noted the patient has been sleeping and eating less. No chest pain, dizziness, weakness, change in bowel movements reported. In addition, patient recently came from rehab facility in January for 2 weeks duration for which she left wheelchair dependent after starting with a walker. Patient went through a recent fall in the past 4 weeks after losing balance with her walker brusing her knees. No head trauma or lost of conciousness was reported with this fall event. Patient follows up with her PCP Dr. Melvin Kyle. Patients technical operations vice president is Dr. Fredy Vera. - EMERGENCY DEPARTMENT: Vitals: 97.8, pule rate 67, respiration 18, BP: 130/74, 97% RA EKG: Ventricular paced rhythm UTox: +Opiates >77730.00 Troponins: 0.26 Pro-BNP: 16,600 (no previous labs to compare) UA: Negative for infection BUN: 39; Creatinine 2.2 (baseline 1.8) CT scan head-No acute intracranial pathology. Dpoh-vm-[id number] white matter changes of chronic microangiopathy. Chest l-[id number]-[id number] with pulmonary venous congestion and trace right pleural effusion. No pulmonary edema.ow lung volumes. Previous echocardiogram done in 12/2017- Normal LV chamber size with moderate concentric LVH. The estimated LVEF is 45%. There is global hypokinesis. Mildly calcified mitral valve leaflets and annulus. There is normal leaflet opening. There is mild to moderate mitral regurgitation without prolapse. There is mild aortic insufficiency. There is moderate tricuspid regurgitation. The estimated PA systolic pressure is 45 mmHg. ---- Patient was originally admitted to the ICU for monitring of vitals and possible unstable angina given her trending troponin isoenzymes. IV heparin was to be continued with cardiology consultation. Patient was eventually put in the telemetry unit for further monitoring of her altered mental status, elevated troponins and suspected acute on chronic CHF. Patient admitted and treated and evaluated for following: Problem List: 1. ALTERED MENTAL STATUS 2. ELEVATED TROPONINS 3. CHF-HFrEF 4. OTILIO ON CKD 5. URINARY TRACT INFECTION 6. ARRHYTHMIA Patient was seen by the following consultants during her stay: * Cardiology: Dr. Singh * Pulmonology: Dr. Hyde * Neurology: Dr. Arreguin * Psychiatry: Dr. Riddle Care discussed with patients son throughout her stay. ALTERED MENTAL STATUS Patient had significant fluctuating changes in mental status and altered level of awareness likely secondary to underlying psychiatric disturbances ( hallucinations) and progressive dementia of unknown baseline. Patients positive opiate on utox raised concern of polympharmacy and contribution to her altered mental status. Neurology and Psychiatry were consulted. UA and Urine culture were repeated. Urine Culture was positve for Enterococcus. Patients altered mental status may be contributed by her positive UTI and it was decided to treat despite signficant complaints of urinary symptoms. Patient was started on Ampicillin to perserve her renal function instead of using Nitrofurantoin. She continued to be afebrile without leukocytosis. No signficant evidence of infection on chest x-ray. B12 was within normal limits and TSH originally elevated with mildly low T3. Patients altered mental status continued to improve as she became alert and oriented to person and place. Neurology recommended an EEG for further evaluation. EEG was abnormal due to moderate generalized slowing with GIRDA (Generalized Intermittent Rhythmic Delta) consistent with a toxic or metabolic encephaloptahy. Patient advised to continue antibiotic regimen at home for a full 5 day course. Psychiatry noted to remind patient of day and night patterns to maintain cicardian rhythm and reorient patient consistently to person, place and time. Patient advised to follow up with PCP, neurology and psychiatry outpatient. Ms. Sanford showed significant improvement in her mental status and did not show signs of hallucinations prior to discharge. ELEVATED TROPONINS Found to be secondary to Type 2MI secondary to underlying volume overload and CHF exacerbation with CKD causing increased myocardial demand. Troponins trended up 0.26, 0.29, 0.30 and 0.25. Patient denied any chest pain, tightness, palpitations or shortness of breath during her stay. Patient was continued on IV heparin in the ICU and aspirin, plavix, statin and beta donna. Carvedilol dose ultimately changed to 25mg BID from 6.25 prior to discharge. Patient advised to have close follow up care with her PCP and cardiology after discharge and to continue medications accordingly. HFrEF - Acute on Chronic CHF Patient was started on IV diuresis with 40mg lasix IV daily originally on home 40mg PO daily. Desouza catheter was palced for strict Is/O and daily weights taken. ProBNP was 73307 on admission wtih previous ECHO showing 45% ejection fraction. Patient advised to follow up with closely with cardiology outpatient. Prior to discharge Cardiology recommended patient resume her home PO Lasix of 40mg PO daily. In addition to change her Carvedilol dose to 25mg BID from 6.25. OTILIO WITH CKD Stage IIIB. Patients renal fucntion was monitored daily while on IV diuretics. Diuretics were held 2 days prior to discharge due to elevated creatinine. Blood pressures systolic remianed stable 110-130s. Patient advised to follow up with PCP outpatient. Continue home Lasix 40mg PO. SUSTAINED/NONSUSTAINED VENTRICULAR TACHYCARDIA On 04/25/18: Patient was found on the rhythm strip in the telemtry to have suspected sustained/nonsustained ventricular tachycardia. Patient was sitting in chair after PT evaluation. On assessment, she denied any chest pain, palpitations, shortness of breath or nausea or vomiting. Patient stated she had no new complaints at that time. Patients pulse rate was a regular rate, rhythm and amplitude on assessment. Stat EKG, troponin and electrolytes including magnesium were ordered to further evaluate the event. Patients asymptomatic arrhythmia had resolved immediately. Electrolytes were repleated including magnesium and potassium. Cardiology consultation was placed and no further intervention was necesasry. Patient was continuously monitored on the telemetry prior to discharge. DIARRHEA On 04/26/18 patient stated she had diarrhea multiple times. She denied any abdominal pain, fevers, chills, nausea or vomiting. Patient was afebrile and no leukocytosis was represented on CBC. Patient was given probiotic pills to take prior to discharge to comfort her intestinal josh given she has been taking Ampicillin 500mg q12 PO for 4 days. C. Diff stool antigen was sent to the microbiology lab with a negative result. Patient stable prior to discharge and no further bouts of diarrhea reported. DECONDITIONING Patient seen and evaluated by physical therapy. Recommended STR. NUTRITION Nutrition was consulted. Patients son concerned of her not eating well. Patient had passed swallow eval at time of ICU as well. Nutrition recommended to continue regular diet with mechanical soft/thin liquids. Recommended glucerna once daily. Monitor weight trends. Patients weight had trended up since on previous admission December 2017 was 169lbs and wa 186 at time of assessment, likely related to fluid as patient noitced lower extremity swelling-improving. Code Status: DNR/DNI DVT PPx: Heparin gtt/Heparin SC Diet: Heart Health PT Evaluation Allergies: Coded Allergies: No Known Allergies (12/16/17) Significant Procedures: EEG Disposition Summary Disposition Principal Diagnosis: Toxic/Metabolic Encephalopathy Additional Diagnosis: Type 2 NH Discharge Disposition: home health services Discharge Instructions General Discharge Information Code Status: Do Not Resucitate/Intubat Patient's Diet: Regular Patient's Activity: Limited with asistance Follow-Up Instructions/Appts: Please follow up with PCP within 1 week of discharge. Please follow up with Cardiology within 1 week of discharge. Please follow up with Neurology within 2 weeks of discharge. Please follow up with Pulmonology within 2 weeks of discharge. Please follow up with Psychiatry within 3 weeks of discharge. Complete 5 day course of Ampicillin for UTI. Continue with home dose Lasix 40mg PO. Continue Carvidilol at 25mg BID changed from previous 6.25mg BID. Return to ED if worsening symptoms of hallucinations, altered mental status, chest pain, tightness, palpitations, shortness of breath. Medications at Discharge Discharge Medications: Stop taking the following medications: Carvedilol (Carvedilol) 6.25 MG TABLET ORAL TWICE DAILY Qty = 60 Continue taking these medications: Furosemide (Furosemide) 40 MG TABLET 1 Tablet ORAL DAILY Qty = 30 Comments: NOT GIVEN IN HOSPITAL Linagliptin (Tradjenta) 5 MG TABLET 1 Tablet ORAL DAILY Qty = 30 Comments: NOT GIVEN IN HOSPITAL Potassium Chloride (Potassium Chloride) 10 MEQ TAB.ER.PRT 1 Tablet ORAL DAILY Qty = 30 Comments: NOT GIVEN IN HOSPITAL Rosuvastatin Calcium (Crestor) 40 MG TABLET 1 Tablet ORAL DAILY Qty = 90 Comments: Last Taken: 12/18/17 Time: 3:45 PM Clopidogrel Bisulfate (Clopidogrel) 75 MG TABLET 1 Tablet ORAL DAILY Qty = 90 Comments: Last Taken: 12/18/17 Time: 10:00 AM Aspirin (Ecotrin*) 81 MG TABLET.DR 1 Tablet ORAL DAILY Qty = 30 Instructions: . Comments: Last Taken: 12/18/17 Time: 10:00 AM Start taking the following new medications: Carvedilol (Coreg) 25 MG TABLET 1 Tablet ORAL TWICE DAILY Qty = 60 No Refills Copies To: Melvin Kyle MD; Chuy WALKER,Melvin Hale MD; Chuy WALKER,Fredy Ayala
--- NOTE | 2018-04-24 18:13 | ELECTROENCEPHALOGRAM REPORT ---
Electroencephalogram Report Electroencephalogram Results Date of service: 04/24/18 Attending MD: Clarita WALKER,Aroldo Ayala Physical Therapy Teacher: Oz Turpin EEG Number: [id number] Test Utilizes: 10-20 system, 21 lead 18 channel digital recording Pertinent Hx/Physical/Neuro Findings/Clin Diagnosis: altered mental status Inpatient Medications: Current Medications Sig/Lucia Start time Last Medication Dose Route Stop Time Status Admin Ampicillin 500 MG Q12H 04/23 1800 AC 04/24 PO 1714 Aspirin Buffered 81 MG DAILY 04/22 0900 AC 04/24 PO 0812 Atorvastatin Calcium 80 MG 1700 04/22 1700 AC 04/24 PO 1714 Carvedilol 6.25 MG BID 04/22 900 AC 04/24 PO 0812 Clopidogrel Bisulfate 75 MG DAILY 04/22 900 AC 04/24 PO 0812 Heparin Sodium 5,000 UNIT Q8 04/23 1400 AC 04/24 (Porcine) SC 1356 Insulin Aspart 0 TIDAC 04/22 1700 AC 04/24 SC 1714 Nystatin 1 RITESH TID 04/22 1400 AC 04/24 TOP 1357 Interpretation: The background in wakefulness is dominated by generalized moderate amplitude activity in the 6-8 Hz. range. Surges of generalized higher amplitude rhythmic delta occur throughout the recording. No focal or epileptifom abnormalities are seen. Hyperventilation could not be done but photic stimulation reveals no additional information. Impression: EEG abnormal due to moderate generalized slowing with GIRDA (generalized intermittent rhythmic delta) consistent with a toxic or metabolic encephalopathy.
[2018-04-24 22:55] VITALS: BP 108/50
[2018-04-25 05:59] VITALS: BP 108/60
--- NOTE | 2018-04-25 06:57 | PN- Housestaff ---
Travis Vasquez 04/25/18 0657: Subjective Follow-up For: Altered Mental Status Subjective: Patient seen and examined at bedside this morning. She is complaining of a cough this morning that is non-productive. Otherwise patient denies any chest pain, shortness of breath or fevers or chills. She is Day 3 on Ampicillin for UTI. Patient agrees she wants to go home and not STR. However, she claims she feels weak today. Patient evaluated by PT deomonstrating significant imbalance and instability. Patient unable to transfer independently. Patient states her son has installed a chair lift at home and only has 1-2 stairs to transfer through garage at home. Review of Systems Constitutional: Denies: see HPI. Objective Last 24 Hrs of Vital Signs/I&O Vital Signs Date Time Temp Pulse Resp B/P B/P Pulse O2 O2 Flow FiO2 Mean Ox Delivery Rate 04/25 0559 98.4 65 20 108/60 98 Room Air 04/24 2255 99.8 68 20 108/50 98 Room Air 04/24 2054 68 108/50 04/24 1442 99.2 66 20 106/52 95 Room Air 04/24 0812 98.3 66 20 118/68 04/24 0800 96 Room Air Intake & Output 04/25 0800 04/25 0000 04/24 1600 Intake Total 200 120 850 Output Total 250 225 Balance -50 -105 850 Intake, Oral 200 120 600 Intake, Other 250 Number 1 Bowel Movements Output, Urine 250 225 Patient 187 lb 186 lb Weight Weight Bed scale Measurement Method Physical Exam General Appearance: Alert, Oriented X3, Cooperative, No Acute Distress HEENT: Atraumatic, PERRLA, EOMI, Mucous Membr. moist/pink Neck: No JVD Cardiovascular: Regular Rate, Normal S1, Normal S2 Lungs: Normal Air Movement, Cough on inspiration Abdomen: Normal Bowel Sounds, Soft, No Tenderness Neurological: Normal Speech, Cranial Nerves 3-12 NL, Reflexes 2+, strength 4/5 in upper and lower extremities Extremities: +1 pedal edema in right lower extremity; tender to palpation RLE; Vascular: Normal Pulses, Pulses Symmetrical Current Medications: Current Medications Sig/Lucia Start time Last Medication Dose Route Stop Time Status Admin Ampicillin 500 MG Q12H 04/23 1800 AC 04/25 PO 0529 Aspirin Buffered 81 MG DAILY 04/22 09 AC 07/12 PO 0745 Atorvastatin Calcium 80 MG 1700 04/22 1700 AC 04/24 PO 1714 Carvedilol 6.25 MG BID 04/22 900 AC 04/25 PO 0745 Clopidogrel Bisulfate 75 MG DAILY 04/22 900 AC 04/25 PO 0745 Heparin Sodium 5,000 UNIT Q8 04/23 1400 AC 04/25 (Porcine) SC 0528 Insulin Aspart 0 TIDAC 04/22 1700 AC 04/24 SC 1714 Nystatin 1 RITESH TID 04/22 1400 AC 04/25 TOP 0745 Last 24 Hrs of Lab/Jose Juan Results Last 24 Hrs of Labs/Mics: Laboratory Tests 04/25/18 0612: Sodium Pending, Potassium Pending, Chloride Pending, Carbon Dioxide Pending, Anion Gap Pending, BUN Pending, Creatinine Pending, BUN/Creatinine Ratio Pending , CBC w Diff Pending, WBC Pending, RBC Pending, Hgb Pending, Hct Pending, MCV Pending, MCH Pending, MCHC Pending, RDW Pending, Plt Count Pending, MPV Pending Lines/Diet/Fluids Catheters/Tubes: guerrero Guerrero Still Needed? Yes Assessment/Plan Assessment: A/P: Patient is an 87 year old female with past medical history of undiagnosed dementia, type 2 DM, CAD (s/p BMS stent in 2010), dilated [employer] HFpEF (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 Pateint came to ED for altered mental status/hallucinations for 3 weeks and increasing cough. Patient found to have elevated troponins and BNP in setting of weight gain. Elevated troponins likely due to demand ischemia with CHF/CKD. 04/25/18: Patient failed PT evaluation with minimal improvement from yesterday. Patient and her son continue to state they want to go home and refuse STR. Patient states her son installed a chair lift at home for major stairs and only 1-2 stairs to transfer through the garage at home. Will speak to son today to inform him of her inability to transfer independently. Altered Mental Status * EEG 04/24/18: Abnormal generalized slowing with GIRDA (generalized intermittent rhythmic delta) consistent with a toxic or metabolic encephalopathy * Appreciate psychiatry and neurology consult; continue to reorient patient to day and night for natural cicardian rhythm * Ampicillin Day 3 for UTI without fever or leukocytosis Acute on Chronic CHF * Spoke with Dr. Banerjee to resume patients PO home Lasix 40mg daily * Carvidilol increased form 6.25 mg BID to 12.5mg BID as per cardiolgy * No evidence of lower extremity edema, chest pain or shortness of breath this morning * Guerrero in place Type 2 DC * Troponins elevated on admission in setting of CHF and CKD most likely due to demand ischemia * Heparin SC; continue with aspirin, plavix, betablocker and statin Deconditioning * Patient failed PT evaluation today. Significant imbalance and instability. * Patient/son refusing STR at this time Code Status: DNR/DNI DVT PPx: ALPS; heparin SC Diet: Regular Pain: As per pain pathway Problem List: 1. Altered mental status 2. CHF (congestive heart failure) Pain Ratin Pain Location: Lower extremity knee pain Pain Goal: Pain 4 or less Pain Plan: As per pain pathway Tomorrow's Labs & Rationales: CBC BEP DVT/Prophylaxis: pharmacological Aroldo Otto 04/25/18 1052: Attending MD Review Statement Attending Statement Attending MD Statement: examined this patient, discuss w/resident/PA/OPERATIONS SUPERVISOR 2ND SHIFT, agreed w/resident/PA/OPERATIONS SUPERVISOR 2ND SHIFT, reviewed EMR data (avail), discussed with nursing, discussed with case mgmt Attending Assessment/Plan: 87 year old woman with PMHx of ? 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 Pt was initially admitted to ICU and then transferred to floor. Altered mental stauts/ Encephalopathy secondary likely due to meds. Pts utox was positive for opiates. pt son says pt was taking cough medicine with codeine at home. Mental status improving now and pt is more alert and verbalizing. she is now alert and oriented fully. Likely combination of metablolic and infectious encephalopathy sec to UTI. EEG consistent with metabolic encephalopathy. Type 2 DC- Trop elevation in setting of chf and ckd, cardiology following. pt doing better now. cont current medical managment. heparin drip stopped. pt on sc heparin. cont asa, plavix, b donna and statin. Acute on chronic systolic chf- lasix was on hold due to OTILIO. imporved now so will resume home dose of lasix. OTILIO - cr down to 1.8 and resolving. resume home dose of lasix. Deconditioning- PT consult- recommending STR . Pt refusing STR.
--- NOTE | 2018-04-25 07:49 | Patient Discharge Instructions ---
Discharge Instructions General Discharge Information You were seen/treated for: Altered Mental Status CHF Systolic Dysfunction You had these procedures: EEG Desouza Catheter Watch for these problems: Worsening chest pain, shortness of breath, hallucinations Special Instructions: Please follow up with PCP within 1 week of discharge Please follow up with Cardiology within 1 week of discharge Please follow up with Pulmonology within 1 week of discharge Please follow up with Neurology within 1 week of discharge Please follow up with Psychiatry if needed within 2 weeks of discharge Please continue and complete antibiotic regimen. Be aware of weakness and do not ambulate independently. Diet Continue normal diet: Yes Activity Full Activity/No Limits: No Activity Self Limited: No Activity Limited to: Walking with Assistance Additional ACTIVITY Info: Patient failed PT evaluation X2. Acute Coronary Syndrome Inclusion Criteria At DC or during hospital stay patient has or had the following: ACS DIAGNOSIS No Discharge Core Measures Meds if any: Prescribed or Continued at Discharge Meds if any: NOT Prescribed or Continued at Discharge Congestive Heart Failure Inclusion Criteria At DC or during hospital stay patient has or had the following: CHF DIAGNOSIS No Discharge Core Measures Meds if any: Prescribed or Continued at Discharge Meds if any: NOT Prescribed or Continued at Discharge Cerebrovascular accident Inclusion Criteria At DC or during hospital stay patient has or had the following: CVA/TIA Diagnosis No Discharge Core Measures Meds if any: Prescribed or Continued at Discharge Meds if any: NOT Prescribed or Continued at Discharge Venous thromboembolism Inclusion Criteria VTE Diagnosis No VTE Type NONE VTE Confirmed by (Test) NONE Discharge Core Measures - Per Current guidelines, there needs to be overlap - treatment for the first 5 days of Warfarin therapy. - If discharged on Warfarin prior to 5 days of - overlap therapy, the patient will need to be - assessed for post discharge needs including - *Post discharge parental anticoagulation - *Warfarin and/or parental anticoagulation education - *Follow up date to check INR post discharge At least 5 days overlap therapy as Inpatient No Meds if any: Prescribed or Continued at Discharge Note: Overlap Therapy is Warfarin and Anticoagulant Meds if any: NOT Prescribed or Continued at Discharge
[2018-04-25 08:13] LABS: ABSOLUTE BASOPHIL COUNT 0 /CUMM (0.0-0.2); ABSOLUTE EOSINOPHIL COUNT 0.2 /CUMM (0.0-0.7); ABSOLUTE GRANULOCYTE CT 4.2 /CUMM (1.4-6.5); ABSOLUTE LYMPH COUNT 0.9 /CUMM (1.2-3.4); ABSOLUTE MONOCYTE COUNT 0.7 /CUMM (0.10-0.60); BASOPHIL % 0.5 % (0.0-2.0); EOSINOPHIL % 2.6 % (0-5); HEMATOCRIT 34.8 % (37-47); MEAN CORPUSCULAR HGB 29.3 PG (27.0-31.0); MEAN CORPUSCULAR HGB CONC 32.4 G/DL (33.0-37.0); MEAN CORPUSCULAR VOLUME 90.4 FL (81.0-99.0); MEAN PLATELET VOLUME 8.5 FL (7.4-10.4); PLATELET COUNT 174 /CUMM (130-400); RBC DISTRIBUTION WIDTH 17.3 % (11.5-14.5); RED BLOOD CELL CT 3.84 /CUMM (4.20-5.40); WHITE BLOOD CELL COUNT 6.1 /CUMM (4.8-10.8)
--- NOTE | 2018-04-25 10:36 | PN- Cardiology ---
Subjective Subjective: Telemetry reviewed. Paced rhythm with ventricular capture and dual-chamber pacemaker. Patient comfortable sitting out in a chair. Does not admit to shortness of breath or chest pain. Objective Vital Signs and I&Os Vital Signs Date Time Temp Pulse Resp B/P B/P Pulse O2 O2 Flow FiO2 Mean Ox Delivery Rate 04/25 0745 65 108/60 04/25 0559 98.4 65 20 108/60 98 Room Air 04/24 2255 99.8 68 20 108/50 98 Room Air 04/24 2054 68 108/50 04/24 1442 99.2 66 20 106/52 95 Room Air Intake & Output 04/25 1600 04/25 0800 04/25 0000 04/24 1600 04/24 0800 04/24 0000 Intake Total 200 120 850 Output Total 250 225 300 Balance -50 -105 850 -300 Intake, Oral 200 120 600 Intake, Other 250 Number 1 1 Bowel Movements Output, Urine 250 225 300 Patient 187 lb 186 lb 188 lb 186 lb Weight Weight Bed scale Bed scale Measurement Method Physical Exam: On physical exam patient was comfortable. Head normocephalic atraumatic Eyes sclera anicteric conjunctiva showed mild pallor extraocular muscles are normal no jugular venous distention Chest lungs were clear bilaterally Heart regular rhythm with a 1/6 systolic murmur Abdomen soft no organomegaly bowel sounds normal Extremities no clubbing cyanosis or edema Neurological no gross motor or sensory deficits. Results Last 48 Hrs of Labs/Mics: Laboratory Tests 04/25/18 0612: Anion Gap 14, Estimated GFR 26 L, BUN/Creatinine Ratio 20.0, CBC w Diff NO MAN DIFF REQ, RBC 3.84 L, MCV 90.4, MCH 29.3, MCHC 32.4 L, RDW 17.3 H, MPV 8.5, Gran % 70.0, Lymphocytes % 15.6 L, Monocytes % 11.3 H, Eosinophils % 2.6, Basophils % 0.5, Absolute Granulocytes 4.2, Absolute Lymphocytes 0.9 L, Absolute Monocytes 0.7 H, Absolute Eosinophils 0.2, Absolute Basophils 0 04/24/18 0643: Anion Gap 14, Estimated GFR 22 L, BUN/Creatinine Ratio 18.1, CBC w Diff NO MAN DIFF REQ, RBC 3.70 L, MCV 89.5, MCH 29.8, MCHC 33.3, RDW 17.1 H, MPV 8.6, Gran % 73.2, Lymphocytes % 14.3 L, Monocytes % 10.6 H, Eosinophils % 1.3, Basophils % 0.6, Absolute Granulocytes 4.5, Absolute Lymphocytes 0.9 L, Absolute Monocytes 0.7 H, Absolute Eosinophils 0.1, Absolute Basophils 0 04/23/18 1100: Troponin I Cancelled Assessment/Plan Assessment/Plan In summary this 87-year-old female has a following problems 87-year-old woman with a past medical history of coronary artery disease (status post stenting to the LAD in 2010), mitral regurgitation, a dilated cardiomyopathy with an LVEF of 45%, type2 DM, SSS (s/p medtronic pacemaker), as well as chronic congestive heart failure secondary to systolic dysfunction. She presents to our hospital with altered mental status, described as hallucinations by her son, she was as well noted to have an elevated troponin isoenzyme as well as significantly elevated BNP, in the setting of an approximate 20 pound weight gain over a period of 4 weeks. Elevated troponin isoenzyme: The patient presents with an elevated troponin isoenzymes; however, in the setting of acute on chronic kidney injury, and without ischemic EKG changes nor complaints. Overall, her enzyme elevation is flat, and she demonstrated elevations on her previous admissions as well. Her presentation is not consistent with an acute coronary syndrome rather, chronic troponin isoenzyme elevation in the setting of renal dysfunction and acute congestive heart failure. We will continue with a conservative management approach. Aspirin as well as beta blockers (Coreg) will be maintained and a statin. Further follow-up of troponin isoenzymes does not need to be maintained Acute on chronic congestive heart failure: The patient had an approximate 20 pound weight gain over the past 4 weeks. This likely represents fluid overload and a component of acute on chronic congestive heart failure secondary to combined diastolic and systolic dysfunction. She is improved following diuresis, and should probably be on maintenance diuretics. I will suggest Lasix 20 mg once a day. Left ventricular ejection fraction was about 35%. I would attempt to increase her carvedilol to 12.5 mg twice daily. We could start her on GENARO inhibitors as an outpatient after renal function stabilized. Altered mental status: The patient had altered mental status on presentation. Patient appears to be alert and recovered this at this time Continue telemetry? Yes
[2018-04-25] MEDS ORDERED: CARVEDILOL12.5 M1 PO (10:41)
[2018-04-25] MEDS ORDERED: LASIX20 M1 PO (10:53)
[2018-04-25 14:43] VITALS: BP 102/58
--- NOTE | 2018-04-25 15:39 | Event Note ---
Event Note Event Note: S: Patient was found on the rhythm strip in the telemtry to have suspected sustained ventricular tachycardia. Patient was sitting in chair after PT evaluation. On assessment, she denied any chest pain, palpitations, shortness of breath or nausea or vomiting. Patient stated she feels fine during that time. Patients pulse rate was regular rate, rhythm and amplitude. Stat EKG, troponin and electrolytes including magnesium were ordered to further evaluate the event. B: Patient is a 87 year old female with past medical history of CAD (NSTEMI diagnosed 2010 s/p BMS to LAD), MR and systolic CHF, bradycardia s/p medtronic pacemaker implant. Patient admitted for altered mental status and hallucinations for 3 weeks, increasing cough. Found to have elevated serial troponins with no signfiicant EKG changes. Ruled out ACS as elevated troponins secondary to demand ischemia secondary to CHF/CKD. In addition she is being treated for a positive UTI which may be cause of her encephalopathy. Patient has been seen by neurology , cardiology, psychiatry and monitored by the teaching team. Patient has not had any significant telemetry events or complaints of chest pain or shortness of breath. Her oral lasix was resumed today after improving kidney function. Carvedilol was increased. A/P: Patients potassium found to be 3.5 and was repleated with K-Dur 40meq x1. Magnesium was at 1.7 and repleated with magnesium oxide 400mg BID 2 doses. Will follow up with electrolytes in the morning. Troponin came back to be 0.25 but has decreased since her initial admission and continued to be at a baseline secondary to her type 2 demand ischemia secondary to CHF/CKD. EKG did not demonstrate any ST or T wave changes. Ventricular pacing. Cardiology consulted. Patient hemodynamically stable and cardiology will follow in the morning.
[2018-04-25 22:09] VITALS: BP 104/70
--- NOTE | 2018-04-26 06:59 | PN- Housestaff ---
Travis Vasquez 04/26/18 0658: Subjective Follow-up For: Altered Mental Status Type 2 OK UTI Subjective: Patient seen and examined at bedside this morning. Patient eating during time of assessment. She denies any chest pain, palpitations, shortness of breath. Patient claims she had episodes of diarrhea overnight and this morning requiring to be changed. She is afebrile. C. Diff ordered for follow up. Patient has not had any new events on the EKG and electrolytes have been repleated. Day 4 Ampicillin. Review of Systems Constitutional: Denies: see HPI. Objective Last 24 Hrs of Vital Signs/I&O Vital Signs Date Time Temp Pulse Resp B/P B/P Pulse O2 O2 Flow FiO2 Mean Ox Delivery Rate 04/26 0751 78 116/66 04/26 0701 97.7 65 26 116/66 97 Room Air 04/25 2209 98.0 68 20 104/70 98 04/25 2046 70 106/54 04/25 1515 Room Air Room Air 04/25 1507 Room Air Room Air 04/25 1443 97.5 64 20 102/58 99 Room Air Intake & Output 04/26 1600 04/26 0800 04/26 0000 Intake Total 200 200 Output Total 325 275 Balance -125 -75 Intake, Oral 200 200 Number 1 Bowel Movements Output, Urine 325 275 Patient 189 lb Weight Physical Exam General Appearance: Alert, Oriented X3, Cooperative HEENT: Atraumatic, PERRLA, EOMI, Mucous Membr. moist/pink Cardiovascular: Regular Rate, Normal S1, Normal S2 Lungs: Normal Air Movement Abdomen: Normal Bowel Sounds, Soft, No Tenderness Neurological: Normal Speech, Normal Tone, Sensation Intact, Cranial Nerves 3-12 NL, Reflexes hypoactive, Strength 4/5 in upper/lower extremities bilaterally Extremities: No Clubbing, No Cyanosis, No Edema, Normal Pulses Vascular: Normal Pulses, Pulses Symmetrical Current Medications: Current Medications Sig/Lucia Start time Last Medication Dose Route Stop Time Status Admin Ampicillin 500 MG Q12H 04/23 1800 AC 04/26 PO 0545 Aspirin Buffered 81 MG DAILY 04/22 0900 AC 04/26 PO 0751 Atorvastatin Calcium 80 MG 1700 / 1700 AC 04/25 PO 1904 Carvedilol 25 MG BID 04/26 2100 AC PO Carvedilol 12.5 MG BID 04/25 2100 DC 04/26 PO 0751 Clopidogrel Bisulfate 75 MG DAILY 04/22 0900 AC 04/26 PO 0750 Furosemide 20 MG DAILY 04/25 1036 AC 04/26 PO 0751 Guaifenesin 10 ML ONCE ONE 04/25 2200 DC 04/25 PO 04/25 2201 220 Heparin Sodium 5,000 UNIT Q8 04/23 1400 AC 04/26 (Porcine) SC 1311 Insulin Aspart 0 TIDAC 04/22 1700 AC 04/26 SC 1311 Lactobacillus 1 CAP BID 04/26 0930 AC 04/26 Acidophilus PO 1312 Magnesium Oxide 400 MG BID 04/25 2100 DC 04/26 PO 04/26 0901 0750 Nystatin 1 RITESH TID 04/22 1400 AC 04/26 TOP 1312 Potassium Chloride 40 MEQ ONCE ONE 04/25 190 DC 04/25 PO 04/25 [id number] Last 24 Hrs of Lab/Jose Juan Results Last 24 Hrs of Labs/Mics: Laboratory Tests 04/26/18 0657: Anion Gap 13, Estimated GFR 33 L, BUN/Creatinine Ratio 19.3, CBC w Diff NO MAN DIFF REQ, RBC 3.83 L, MCV 90.0, MCH 29.4, MCHC 32.7 L, RDW 17.6 H, MPV 8.6, Gran % 73.1, Lymphocytes % 13.3 L, Monocytes % 10.3 H, Eosinophils % 2.8, Basophils % 0.5, Absolute Granulocytes 4.5, Absolute Lymphocytes 0.8 L, Absolute Monocytes 0.6, Absolute Eosinophils 0.2, Absolute Basophils 0 04/25/18 1705: Magnesium 1.7 04/25/18 1705: Anion Gap 15, Troponin I 0.25 *H Microbiology 04/26 1030 STOOL: Clostridium difficile Toxin A & B - RECD Lines/Diet/Fluids Desouza Still Needed? Yes Assessment/Plan Assessment: A/P: 87-year-old woman with a past medical history of coronary artery disease (status post stenting to the LAD in 2010), mitral regurgitation, a dilated cardiomyopathy with an LVEF of 45%, type2 DM, SSS (s/p medtronic pacemaker), as well as chronic congestive heart failure secondary to systolic dysfunction. She presents to our hospital with altered mental status, described as hallucinations by her son, she was as well noted to have an elevated troponin isoenzyme as well as significantly elevated BNP, in the setting of an approximate 20 pound weight gain over a period of 4 weeks. Patient admitted to the Patient agreed to go to STR as per son as well. Bed available as per case management. Will monitor on tele for one more night given yesterday event of nonsustained vtach hemodynamically stable. Dr. Singh seen patient today. Problem List: 1. Altered Mental Status 2. Type 2 OK 3. Acute on Chronic CHF 4. Arrhythmia Altered Mental Status * secondary to medications and UTI; utox positive for opiates * mental status improving; patient alert to person place and time and verbalizing well * combination of metabolic/toxic encephalopathy * EEG consistent with metabolic encephalopathy * will continue to treat for UTI ampicillin day 4 Type 2 OK * Elevated troponins on admission in setting of CHF and CKD * Cardiology following; continue to follow recommendations * Aspirin, Plavix, Beta Chandana and Statin Acute on Chronic CHF * Patients renal function improved will go back on home dose of 40mg lasix Nonustained V Tach Episode * Occurred yesterday 04/25/13 * monitor on telemetry for another day and follow cardiology recommendations * implanted pacemaker; episode of vtach in setting of hypokalemia and hypomagnesmia repleated * Carvidilol increased to 25 BID Code Status: DNR/DNI DVT PPx: Heparin SC Diet: Regular Desouza Problem List: 1. CHF (congestive heart failure) 2. Altered mental status Pain Ratin Pain Location: No pain at this time Pain Goal: Remain pain free Pain Plan: As per pain pathway Tomorrow's Labs & Rationales: CBC BEP DVT/Prophylaxis: pharmacological Aroldo Otto 04/26/18 1119: Attending MD Review Statement Attending Statement Attending MD Statement: examined this patient, discuss w/resident/PA/DIRECTOR EDUCATION, agreed w/resident/PA/DIRECTOR EDUCATION, reviewed EMR data (avail), discussed with nursing, discussed with case mgmt Attending Assessment/Plan: 87 year old woman with PMHx of ? 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 Pt was initially admitted to ICU and then transferred to floor. Altered mental stauts/ Encephalopathy secondary likely due to meds and UTI. Pts utox was positive for opiates. pt son says pt was taking cough medicine with codeine at home. Mental status improving now and pt is more alert and verbalizing. she is now alert and oriented fully. Likely combination of metablolic and infectious encephalopathy sec to UTI. EEG consistent with metabolic encephalopathy. Type 2 OK- Trop elevation in setting of chf and ckd, cardiology following. pt doing better now. cont current medical managment. heparin drip stopped. pt on sc heparin. cont asa, plavix, b chandana and statin. Acute on chronic systolic chf- lasix was on hold due to OTILIO. on 20mg lasix. will go back to home dose of 40mg laisx. OTILIO - cr down to 1.5 and resolving. resume home dose of lasix. Deconditioning- PT consult- recommending STR . Pt agreeable to that. Diarrhea- likely secondary to abx. will send stool for cdiff and will start on lactobacillus. Sustatined v tach episode yesterday. d/w cardio. will monitor on tele for another day and will f/u on cardio recommendations.
[2018-04-26 07:01] VITALS: BP 116/66
[2018-04-26 07:54] LABS: ABSOLUTE BASOPHIL COUNT 0 /CUMM (0.0-0.2); ABSOLUTE EOSINOPHIL COUNT 0.2 /CUMM (0.0-0.7); ABSOLUTE GRANULOCYTE CT 4.5 /CUMM (1.4-6.5); ABSOLUTE LYMPH COUNT 0.8 /CUMM (1.2-3.4); ABSOLUTE MONOCYTE COUNT 0.6 /CUMM (0.10-0.60); BASOPHIL % 0.5 % (0.0-2.0); EOSINOPHIL % 2.8 % (0-5); GRANULOCYTE % 73.1 % (42.2-75.2); HEMATOCRIT 34.5 % (37-47); MEAN CORPUSCULAR HGB 29.4 PG (27.0-31.0); MEAN CORPUSCULAR HGB CONC 32.7 G/DL (33.0-37.0); MEAN PLATELET VOLUME 8.6 FL (7.4-10.4); PLATELET COUNT 171 /CUMM (130-400); RBC DISTRIBUTION WIDTH 17.6 % (11.5-14.5); RED BLOOD CELL CT 3.83 /CUMM (4.20-5.40); WHITE BLOOD CELL COUNT 6.1 /CUMM (4.8-10.8)
--- NOTE | 2018-04-26 11:32 | PN- Cardiology ---
Subjective Subjective: The patient is awake, alert Telemetry demonstrated a sustained, self terminating run of ventricular tachycardia occurring yesterday afternoon. This was in the setting of mild hypokalemia as well as mild hypomagnesemia both of which have been repleted. The patient was asymptomatic for the same. Review of Systems: The review of systems is negative for chest pains, palpitations nor lightheadedness. The remainder of the 14 point review of systems is noncontributory with the exception of above. Objective Vital Signs and I&Os Vital Signs Date Time Temp Pulse Resp B/P B/P Pulse O2 O2 Flow FiO2 Mean Ox Delivery Rate 04/26 0751 78 116/66 04/26 0701 97.7 65 26 116/66 97 Room Air 04/25 2209 98.0 68 20 104/70 98 04/25 2046 70 106/54 04/25 1515 Room Air Room Air 04/25 1507 Room Air Room Air 04/25 1443 97.5 64 20 102/58 99 Room Air Intake & Output 04/26 1600 04/26 0800 04/26 0000 04/25 1600 04/25 0800 04/25 0000 Intake Total 200 200 370 200 120 Output Total 325 275 180 250 225 Balance -125 -75 190 -50 -105 Intake, IV 20 Intake, Oral 200 200 350 200 120 Number 1 Bowel Movements Output, Urine 325 275 180 250 225 Patient 189 lb 187 lb Weight Physical Exam: General: Nontoxic, no apparent distress. HEENT: Sclera and conjunctiva within normal limits, without xanthelasmas. Neck: Carotids 2+ without bruits. Respiratory: Scattered rhonchi, air movement is good, without accessory respiratory muscle use. Heart: Regular rate and rhythm, without murmurs, without JVD. Abdomen: Soft, nontender, no masses, normoactive bowel sounds. Extremities: Without clubbing, cyanosis, without edema. Neuro: Nonfocal exam, strength, 5 out of 5 Skin: Within normal limits without lesions. Psych: Mood and affect: Normal Current Medications: Current Medications Sig/Lucia Start time Last Medication Dose Route Stop Time Status Admin Ampicillin 500 MG Q12H /10 1800 AC 04/26 PO 0545 Aspirin Buffered 81 MG DAILY 04/22 0900 AC 04/26 PO 0751 Atorvastatin Calcium 80 MG 1700 04/22 1700 AC 04/25 PO 1904 Carvedilol 12.5 MG BID 04/25 2100 AC 04/26 PO 0751 Clopidogrel Bisulfate 75 MG DAILY 04/22 0900 AC 04/26 PO 0750 Furosemide 20 MG DAILY 04/25 1036 AC 04/26 PO 0751 Guaifenesin 10 ML ONCE ONE 04/25 2200 DC 04/25 PO 04/25 Heparin Sodium 5,000 UNIT Q8 04/23 1400 AC 04/26 (Porcine) SC 0547 Insulin Aspart 0 TIDAC 04/22 1700 AC 04/25 SC 1232 Lactobacillus 1 CAP BID 04/26 0930 AC Acidophilus PO Magnesium Oxide 400 MG BID 04/25 2100 DC 04/26 PO 04/26 0901 0750 Nystatin 1 RITESH TID 04/22 1400 AC 04/26 TOP 0750 Potassium Chloride 40 MEQ ONCE ONE 04/25 1900 DC 04/25 PO 04/25 Results Last 48 Hrs of Labs/Mics: Laboratory Tests 04/26/18 0657: Anion Gap 13, Estimated GFR 33 L, BUN/Creatinine Ratio 19.3, CBC w Diff NO MAN DIFF REQ, RBC 3.83 L, MCV 90.0, MCH 29.4, MCHC 32.7 L, RDW 17.6 H, MPV 8.6, Gran % 73.1, Lymphocytes % 13.3 L, Monocytes % 10.3 H, Eosinophils % 2.8, Basophils % 0.5, Absolute Granulocytes 4.5, Absolute Lymphocytes 0.8 L, Absolute Monocytes 0.6, Absolute Eosinophils 0.2, Absolute Basophils 0 04/25/18 170: Magnesium 1.7 04/25/18 170: Anion Gap 15, Troponin I 0.25 *H 04/25/18 0612: Anion Gap 14, Estimated GFR 26 L, BUN/Creatinine Ratio 20.0, CBC w Diff NO MAN DIFF REQ, RBC 3.84 L, MCV 90.4, MCH 29.3, MCHC 32.4 L, RDW 17.3 H, MPV 8.5, Gran % 70.0, Lymphocytes % 15.6 L, Monocytes % 11.3 H, Eosinophils % 2.6, Basophils % 0.5, Absolute Granulocytes 4.2, Absolute Lymphocytes 0.9 L, Absolute Monocytes 0.7 H, Absolute Eosinophils 0.2, Absolute Basophils 0 Assessment/Plan Assessment/Plan 87-year-old woman with a past medical history of coronary artery disease (status post stenting to the LAD in 2010), mitral regurgitation, a dilated cardiomyopathy with an LVEF of 45%, type2 DM, SSS (s/p medtronic pacemaker), as well as chronic congestive heart failure secondary to systolic dysfunction. She presents to our hospital with altered mental status, described as hallucinations by her son, she was as well noted to have an elevated troponin isoenzyme as well as significantly elevated BNP, in the setting of an approximate 20 pound weight gain over a period of 4 weeks. Elevated troponin isoenzyme: The patient presents with an elevated troponin isoenzymes; however, in the setting of acute on chronic kidney injury, and without ischemic EKG changes nor complaints. Overall, her enzyme elevation is flat, and she demonstrated elevations on her previous admissions as well. Her presentation is not consistent with an acute coronary syndrome rather, chronic troponin isoenzyme elevation in the setting of renal dysfunction and acute congestive heart failure. We will continue with a conservative management approach. Acute on chronic congestive heart failure: The patient had an approximate 20 pound weight gain over the past 4 weeks. This likely represents fluid overload and a component of acute on chronic congestive heart failure secondary to combined diastolic and systolic dysfunction. She is improved following diuresis, and we will attempt to maintain an overall euvolemic balance at this time. Arrhythmia: The patient has had nonsustained ventricular tachycardia as well as one episode of sustained atrial tachycardia with spontaneous conversion seen on telemetry. She has been asymptomatic with these, and her baseline ejection fraction is 35- 40%. As she has an implanted pacemaker, and as the episode of ventricular tachycardia was in the setting of mild hypokalemia and hypomagnesemia, we will increase her beta donna regimen and observe following repletion of her electrolytes. Altered mental status: The patient had altered mental status on presentation. Neurology input has been reviewed and appreciated. Etiology may be secondary to a UTI, and is now improved. Continue telemetry? Yes
[2018-04-26] MEDS ORDERED: AMPICILLIN TRI500 MG PO ×2 (12:30→15:42)
[2018-04-26] MEDS ORDERED: COREG25 M1 PO (12:30)
[2018-04-26 14:51] VITALS: BP 126/70
[2018-04-26 23:05] VITALS: BP 108/70
[2018-04-27 07:02] VITALS: BP 106/70
[2018-04-27 08:24] LABS: ABSOLUTE BASOPHIL COUNT 0 /CUMM (0.0-0.2); ABSOLUTE EOSINOPHIL COUNT 0.2 /CUMM (0.0-0.7); ABSOLUTE GRANULOCYTE CT 3.9 /CUMM (1.4-6.5); ABSOLUTE LYMPH COUNT 0.9 /CUMM (1.2-3.4); ABSOLUTE MONOCYTE COUNT 0.6 /CUMM (0.10-0.60); BASOPHIL % 0.5 % (0.0-2.0); EOSINOPHIL % 3.4 % (0-5); GRANULOCYTE % 70.3 % (42.2-75.2); HEMATOCRIT 32.9 % (37-47); MEAN CORPUSCULAR HGB 29.6 PG (27.0-31.0); MEAN CORPUSCULAR HGB CONC 32.7 G/DL (33.0-37.0); MEAN CORPUSCULAR VOLUME 90.6 FL (81.0-99.0); MEAN PLATELET VOLUME 8.9 FL (7.4-10.4); PLATELET COUNT 170 /CUMM (130-400); RBC DISTRIBUTION WIDTH 17.5 % (11.5-14.5); RED BLOOD CELL CT 3.64 /CUMM (4.20-5.40); WHITE BLOOD CELL COUNT 5.6 /CUMM (4.8-10.8)
--- NOTE | 2018-04-27 09:23 | PN- Housestaff ---
See Addendum Subjective Follow-up For: Mental status, UTI, type II MO Tele-Events Since Last Visit: Sinus pacing. Heart rate 64-67. Bundle-branch block heart rate 64 at 8 am Subjective: Patient reports 5-6 episodes of watery stools. Review of Systems Constitutional: Reports: see HPI. Objective Last 24 Hrs of Vital Signs/I&O Vital Signs Date Time Temp Pulse Resp B/P B/P Pulse O2 O2 Flow FiO2 Mean Ox Delivery Rate 04/27 0702 98.4 70 18 106/70 97 04/27 0000 95 Room Air 04/26 2305 98.1 68 20 108/70 96 04/26 2227 72 108/82 04/26 1451 98.2 68 20 126/70 96 Room Air Intake & Output 04/27 1600 04/27 0800 04/27 0000 Intake Total Output Total 50 150 Balance -50 -150 Output, Urine 50 150 Patient 187 lb Weight Physical Exam General Appearance: Alert, Oriented X3, Cooperative, No Acute Distress Skin Temp/Moisture Exam: Cool/Dry HEENT: Atraumatic Neck: Supple Cardiovascular: Regular Rate, Normal S1, Normal S2, No Murmurs Lungs: Clear to Auscultation, Normal Air Movement Abdomen: Normal Bowel Sounds, Soft, No Tenderness Neurological: Normal Speech, Normal Tone Extremities: No Clubbing, No Cyanosis, No Edema, Normal Pulses Assessment/Plan Assessment: 87-year-old woman with a past medical history of coronary artery disease (status post stenting to the LAD in 2010), mitral regurgitation, a dilated cardiomyopathy with an LVEF of 45%, type2 DM, SSS (s/p medtronic pacemaker), as well as chronic congestive heart failure secondary to systolic dysfunction. She presents to our hospital with altered mental status, described as hallucinations by her son, she was as well noted to have an elevated troponin isoenzyme as well as significantly elevated BNP, in the setting of an approximate 20 pound weight gain over a period of 4 weeks. Problem List: 1. Altered Mental Status 2. Type 2 MO 3. Acute on Chronic CHF 4. Arrhythmia Assessment and plan: Watery stools * Patient reports 5-6 episodes of watery stools * we ordered Lomotil 2.5 mg per oral once Altered Mental Status * secondary to medications and UTI * On ampicillin-Day 5 today Type 2 MO * Cardiology following; continue to follow recommendations * Continue to monitor intakes, outputs, daily weights Acute on Chronic CHF * Serum creatinine 1.4 today. BUN/creatinine ratio 18.6 * She is getting furosemide 40 mg per oral daily Code Status: DNR/DNI DVT PPx: Heparin SC Diet: Regular Problem List: 1. CHF (congestive heart failure) 2. Altered mental status Pain Ratin Pain Location: None Pain Goal: Remain pain free Pain Plan: As per pain pathway Tomorrow's Labs & Rationales: cbc, bep
--- NOTE | 2018-04-27 13:06 | PN- Cardiology ---
Subjective Subjective: The patient is doing okay today. She seems stable from a cardiac standpoint. Apparently, per the patient, she has had multiple episodes of loose stool/ diarrhea. Evaluation pending Objective Vital Signs and I&Os Vital Signs Date Time Temp Pulse Resp B/P B/P Pulse O2 O2 Flow FiO2 Mean Ox Delivery Rate 04/27 1018 70 106/70 04/27 0702 98.4 70 18 106/70 97 04/27 0000 95 Room Air 04/26 2305 98.1 68 20 108/70 96 04/26 2227 72 108/82 04/26 1451 98.2 68 20 126/70 96 Room Air Intake & Output 04/27 1600 04/27 0800 04/27 0000 04/26 1600 04/26 0800 04/26 0000 Intake Total 410 200 200 Output Total 50 150 325 275 Balance -50 -150 410 -125 -75 Intake, IV 10 Intake, Oral 400 200 200 Number 1 Bowel Movements Output, Urine 50 150 325 275 Patient 187 lb 189 lb Weight Physical Exam: General: Nontoxic, no apparent distress. HEENT: Sclera and conjunctiva within normal limits, without xanthelasmas. Neck: Carotids 2+ without bruits. Respiratory: Scattered rhonchi, air movement is good, without accessory respiratory muscle use. Heart: Regular rate and rhythm, without murmurs, without JVD. Abdomen: Soft, nontender, no masses, normoactive bowel sounds. Extremities: Without clubbing, cyanosis, without edema. Neuro: Nonfocal exam Skin: Within normal limits without lesions. Psych: Mood and affect: Normal Current Medications: Current Medications Sig/Lucia Start time Last Medication Dose Route Stop Time Status Admin Ampicillin 500 MG Q12H 04/23 1800 AC 04/27 PO 0716 Aspirin Buffered 81 MG DAILY 04/22 900 AC 04/27 PO 1019 Atorvastatin Calcium 80 MG 1700 04/22 1700 AC 04/26 PO 1744 Carvedilol 25 MG BID 04/26 2100 AC 04/27 PO 1018 Clopidogrel Bisulfate 75 MG DAILY 04/22 900 AC 04/27 PO 1018 Diphenoxylate HCl/ 2.5 MG ONCE ONE 04/27 1045 DC Atropine PO 04/27 1046 Furosemide 40 MG DAILY 04/27 09 AC 04/27 PO 1018 Furosemide 20 MG ONCE ONE 04/26 1930 DC 04/26 PO 04/26 1931 2227 Furosemide 20 MG DAILY 04/25 1036 DC 04/26 PO 0751 Heparin Sodium 5,000 UNIT Q8 04/23 1400 AC 04/27 (Porcine) GA 0716 Insulin Aspart 0 TIDAC 04/22 1700 AC 04/26 GA 1311 Lactobacillus 1 CAP BID 04/26 0930 AC 04/27 Acidophilus PO 1018 Nystatin 1 RITESH TID 04/22 1400 FL 04/26 [facility] 1312 Results Last 48 Hrs of Labs/Mics: Laboratory Tests 04/27/18 0615: Anion Gap 11, Estimated GFR 35 L, BUN/Creatinine Ratio 18.6, CBC w Diff NO MAN DIFF REQ, RBC 3.64 L, MCV 90.6, MCH 29.6, MCHC 32.7 L, RDW 17.5 H, MPV 8.9, Gran % 70.3, Lymphocytes % 15.3 L, Monocytes % 10.5 H, Eosinophils % 3.4, Basophils % 0.5, Absolute Granulocytes 3.9, Absolute Lymphocytes 0.9 L, Absolute Monocytes 0.6, Absolute Eosinophils 0.2, Absolute Basophils 0 04/26/18 0657: Anion Gap 13, Estimated GFR 33 L, BUN/Creatinine Ratio 19.3, CBC w Diff NO MAN DIFF REQ, RBC 3.83 L, MCV 90.0, MCH 29.4, MCHC 32.7 L, RDW 17.6 H, MPV 8.6, Gran % 73.1, Lymphocytes % 13.3 L, Monocytes % 10.3 H, Eosinophils % 2.8, Basophils % 0.5, Absolute Granulocytes 4.5, Absolute Lymphocytes 0.8 L, Absolute Monocytes 0.6, Absolute Eosinophils 0.2, Absolute Basophils 0 04/25/18 1705: Magnesium 1.7 04/25/18 1705: Anion Gap 15, Troponin I 0.25 *H Microbiology 04/26 1030 STOOL: Clostridium difficile Toxin A & B - COMP Assessment/Plan Assessment/Plan Assessment: 1. Elevated troponin 2. Nonsustained wide-complex tachycardia 3. Cardiomyopathy with ejection fraction of 35-40% 4. Acute on chronic congestive heart failure 5. Diarrhea 6. History of coronary artery disease, status post prior stenting 7. History of sick sinus syndrome status post pacemaker implantation Recommendations: -Continue current management as outlined. -Continue to monitor intakes, outputs, daily weights -GI evaluation for loose stool/diarrhea pending - Continue telemetry? Yes
[2018-04-27 15:13] VITALS: BP 102/62
[2018-04-27 22:04] VITALS: BP 108/74
[2018-04-28 06:47] VITALS: BP 112/64
[2018-04-28 08:04] LABS: ABSOLUTE BASOPHIL COUNT 0 /CUMM (0.0-0.2); ABSOLUTE EOSINOPHIL COUNT 0.2 /CUMM (0.0-0.7); ABSOLUTE GRANULOCYTE CT 3.9 /CUMM (1.4-6.5); ABSOLUTE LYMPH COUNT 1.1 /CUMM (1.2-3.4); ABSOLUTE MONOCYTE COUNT 0.5 /CUMM (0.10-0.60); BASOPHIL % 0.5 % (0.0-2.0); EOSINOPHIL % 3.1 % (0-5); GRANULOCYTE % 67.9 % (42.2-75.2); MEAN CORPUSCULAR HGB 29.9 PG (27.0-31.0); MEAN CORPUSCULAR VOLUME 90.6 FL (81.0-99.0); MEAN PLATELET VOLUME 8.9 FL (7.4-10.4); PLATELET COUNT 173 /CUMM (130-400); RBC DISTRIBUTION WIDTH 17.4 % (11.5-14.5); RED BLOOD CELL CT 3.76 /CUMM (4.20-5.40); WHITE BLOOD CELL COUNT 5.7 /CUMM (4.8-10.8)
--- NOTE | 2018-04-28 08:25 | PN- Housestaff ---
Travis Vasquez 04/28/18 0825: Subjective Follow-up For: Altered Mental Status UTI Arrythmia-resolved Tele-Events Since Last Visit: S. Pacing, 64, 0.16, ventricular paced Subjective: Patient seen and examined at bedside this morning. She claims she had episodes of diarrhea yesterday but none this morning. Patient denies any chest pain, tightness, palpitations or shortness of breath. She is to be discharged today to [facility]. Vitals remain stable and she is afebrile. Review of Systems Constitutional: Denies: see HPI. Objective Last 24 Hrs of Vital Signs/I&O Vital Signs Date Time Temp Pulse Resp B/P B/P Pulse O2 O2 Flow FiO2 Mean Ox Delivery Rate 04/28 1435 97.6 646 20 112/58 96 04/28 1342 98.1 63 20 112/64 04/28 1030 63 112/64 04/28 0647 98.1 63 20 112/64 96 Room Air 04/28 0000 95 Room Air 04/27 2204 97.1 63 18 108/74 93 Room Air 04/27 2040 68 108/68 Intake & Output 04/28 1600 15 0800 04/28 0000 Intake Total 360 Output Total 400 250 Balance -400 110 Intake, Oral 360 Output, Urine 400 250 Patient 155 lb Weight Weight Bed scale Measurement Method Physical Exam General Appearance: Alert, Oriented X3, Cooperative, No Acute Distress HEENT: Atraumatic, PERRLA, EOMI, Mucous Membr. moist/pink Cardiovascular: Regular Rate, Normal S1, Normal S2 Lungs: Normal Air Movement, Cough on inspiration Abdomen: Normal Bowel Sounds, Soft, No Tenderness Neurological: Strength at 5/5 X4 Ext, Sensation Intact, Reflexes hypoactive in upper and lower extremities Gait unassessed Extremities: No Clubbing, No Cyanosis, Normal Pulses, +1 edema in right lower extremity Vascular: Normal Pulses, Pulses Symmetrical Current Medications: Current Medications Sig/Lucia Start time Last Medication Dose Route Stop Time Status Admin Ampicillin 500 MG Q12H 04/23 1800 DC 04/27 PO 1722 Aspirin Buffered 81 MG DAILY 04/22 0900 DCD 04/28 PO 1030 Atorvastatin Calcium 80 MG 1700 04/22 1700 DCD 04/27 PO 1721 Carvedilol 25 MG BID 04/26 2100 DCD 04/28 PO 1030 Clopidogrel Bisulfate 75 MG DAILY 04/22 0900 DCD 04/28 PO 1030 Furosemide 40 MG DAILY 04/27 0900 DCD 04/28 PO 1029 Heparin Sodium 5,000 UNIT Q8 04/23 1400 DCD 04/28 (Porcine) SC 0656 Insulin Aspart 0 TIDAC 04/22 1700 DCD 04/26 SC 1311 Lactobacillus 1 CAP BID 04/26 0930 DCD 04/28 Acidophilus PO 1030 Last 24 Hrs of Lab/Jose Juan Results Last 24 Hrs of Labs/Mics: Laboratory Tests 04/28/18 0637: Anion Gap 12, Estimated GFR 42 L, BUN/Creatinine Ratio 19.2, CBC w Diff NO MAN DIFF REQ, RBC 3.76 L, MCV 90.6, MCH 29.9, MCHC 33.0, RDW 17.4 H, MPV 8.9, Gran % 67.9, Lymphocytes % 19.1 L, Monocytes % 9.4 H, Eosinophils % 3.1, Basophils % 0.5, Absolute Granulocytes 3.9, Absolute Lymphocytes 1.1 L, Absolute Monocytes 0.5, Absolute Eosinophils 0.2, Absolute Basophils 0 Lines/Diet/Fluids Guerrero Still Needed? 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 She presents to our hospital with altered mental status, described as hallucinations by her son, she was as well noted to have an elevated troponin isoenzyme as well as significantly elevated BNP, in the setting of an approximate 20 pound weight gain over a period of 4 weeks. Patients diarrhea has resolved. C. Diff negative. Patient to STR today at [facility]. Plan of care discussed thouroughly with patients son today. Problem List: 1. Altered Mental Status 2. Type 2 NC 3. Acute on Chronic CHF 4. Arrhythmia PLAN: * No new cardiac symptoms noted; rhythm stable; Brief episode of slow wide- complex tachycardia noted; * Patient seen by Cardiology Dr. De Los Santos prior to discharge * Loose stools resolved * antibiotics completed * Continuie home lasix PO * Advised to follow up with pcp, caridology, neurology, psychiatry, pulmonology on outpatient basis * Guerrero DCd prior to discharge Code Status: DNR/DNI DVT PPx: Heparin SC Diet: Regular Problem List: 1. Altered mental status Pain Ratin Pain Location: No pain reported today Pain Goal: Remain pain free Pain Plan: As per pain pathway Tomorrow's Labs & Rationales: Discharged today - STR DVT/Prophylaxis: mechanical, pharmacological Discharge Plan Discharge Disposition: STR/PA Aroldo Otto 04/28/18 1526: Attending MD Review Statement Attending Statement Attending MD Statement: examined this patient, discuss w/resident/PA/MOHS SURGEON/GENERAL DERMATOLOGIST, agreed w/resident/PA/MOHS SURGEON/GENERAL DERMATOLOGIST, discussed with family, reviewed EMR data (avail), discussed with nursing, discussed with case mgmt Attending Assessment/Plan: pts diarrhea has resolved. pts c diff was negative. pt will be dced to STR today and this was discussed with pt and pts son today. see dc summary for more detials. pts lasix was resumed . Pts guerrero cath will be dced prior to discharge too.
[2018-04-28 13:42] VITALS: BP 112/64
[2018-04-28 14:35] VITALS: BP 112/58
--- NOTE | 2018-04-28 14:47 | PN- Cardiology ---
Subjective Subjective: Doing okay today. No new cardiac symptoms. Rhythm stable. Brief episode of slow wide-complex tachycardia noted. Objective Vital Signs and I&Os Vital Signs Date Time Temp Pulse Resp B/P B/P Pulse O2 O2 Flow FiO2 Mean Ox Delivery Rate 04/28 1435 97.6 646 20 112/58 96 04/28 1342 98.1 63 20 112/64 04/28 1030 63 112/64 04/28 0647 98.1 63 20 112/64 96 Room Air 04/28 0000 95 Room Air 04/27 2204 97.1 63 18 108/74 93 Room Air 04/27 2040 68 108/68 04/27 1513 97.5 63 18 102/62 92 Intake & Output 04/28 1600 04/28 0800 04/28 0000 04/27 1600 04/27 0804/27 0000 Intake Total 360 Output Total 400 250 50 150 Balance -400 110 -50 -150 Intake, Oral 360 Output, Urine 400 250 50 150 Patient 155 lb 187 lb Weight Weight Bed scale Measurement Method Physical Exam: General: Nontoxic, no apparent distress. HEENT: Sclera and conjunctiva within normal limits, without xanthelasmas. Neck: Carotids 2+ without bruits. Respiratory: Scattered rhonchi, air movement is good, without accessory respiratory muscle use. Heart: Regular rate and rhythm, without murmurs, without JVD. Abdomen: Soft, nontender, no masses, normoactive bowel sounds. Extremities: Without clubbing, cyanosis, without edema. Neuro: Nonfocal exam Skin: Within normal limits without lesions. Psych: Mood and affect: Normal Current Medications: Current Medications Sig/Lucia Start time Last Medication Dose Route Stop Time Status Admin Ampicillin 500 MG Q12H 04/23 1800 DC 04/27 PO 1722 Aspirin Buffered 81 MG DAILY 04/22 900 AC 04/28 PO 1030 Atorvastatin Calcium 80 MG 1700 04/22 1700 AC 04/27 PO 1721 Carvedilol 25 MG BID 04/26 2100 AC 04/28 PO 1030 Clopidogrel Bisulfate 75 MG DAILY 04/22 09 AC 04/28 PO 1030 Furosemide 40 MG DAILY 04/27 09 AC 04/28 PO 1029 Heparin Sodium 5,000 UNIT Q8 04/23 1400 AC 04/28 (Porcine) SC 0656 Insulin Aspart 0 TIDAC 04/22 1700 AC 04/26 SC 1311 Lactobacillus 1 CAP BID 04/26 0930 AC 04/28 Acidophilus PO 1030 Results Last 48 Hrs of Labs/Mics: Laboratory Tests 04/28/18 0637: Anion Gap 12, Estimated GFR 42 L, BUN/Creatinine Ratio 19.2, CBC w Diff NO MAN DIFF REQ, RBC 3.76 L, MCV 90.6, MCH 29.9, MCHC 33.0, RDW 17.4 H, MPV 8.9, Gran % 67.9, Lymphocytes % 19.1 L, Monocytes % 9.4 H, Eosinophils % 3.1, Basophils % 0.5, Absolute Granulocytes 3.9, Absolute Lymphocytes 1.1 L, Absolute Monocytes 0.5, Absolute Eosinophils 0.2, Absolute Basophils 0 04/27/18 0615: Anion Gap 11, Estimated GFR 35 L, BUN/Creatinine Ratio 18.6, CBC w Diff NO MAN DIFF REQ, RBC 3.64 L, MCV 90.6, MCH 29.6, MCHC 32.7 L, RDW 17.5 H, MPV 8.9, Gran % 70.3, Lymphocytes % 15.3 L, Monocytes % 10.5 H, Eosinophils % 3.4, Basophils % 0.5, Absolute Granulocytes 3.9, Absolute Lymphocytes 0.9 L, Absolute Monocytes 0.6, Absolute Eosinophils 0.2, Absolute Basophils 0 Assessment/Plan Assessment/Plan Assessment: 1. Elevated troponin 2. Nonsustained wide-complex tachycardia 3. Cardiomyopathy with ejection fraction of 35-40% 4. Acute on chronic congestive heart failure 5. Diarrhea 6. History of coronary artery disease, status post prior stenting 7. History of sick sinus syndrome status post pacemaker implantation Recommendations: -Continue current management as outlined. -Continue to monitor intakes, outputs, daily weights -C. difficile negative as noted -Out of bed as tolerated -Discharge planning. Continue telemetry? Yes
== END 2018-04-28 15:40 | DRG 280 ==
LOC: ERH 18:33 → 1NO 21:33 → ERHI 21:33 → CRI 21:33 → ERHI 22:07 → ENRESERV 22:27 → CRI 23:52 → ENTRNSPT 04-22 19:26 → EDTRNSPT 04-22 19:46 → EDTRNSPTSTS 04-22 19:46 → 1NO 04-22 19:57 → CMPTRNSPT 04-22 20:19 → 1NO 04-22 21:06 → ENPENDDIS 04-28 12:22 → 1NO 04-28 15:40
PROVIDERS: Emergency Medicine; Internal Medicine Endocrinology, Diabetes & Metabolism; Physical Medicine & Rehabilitation Pain Medicine; Physician Assistant Medical; Preventive Medicine Public Health & General Preventive Medicine; Radiology Pediatric Radiology; Student in an Organized Health Care Education/Training Program
DX: I13.0 Hypertensive heart and chronic kidney disease with heart failure and stage 1 through stage 4 chronic kidney disease, or unspecified chronic kidney disease (principal); G93.40 Encephalopathy, unspecified; I21.A1 Myocardial infarction type 2; I50.23 Acute on chronic systolic (congestive) heart failure; N39.0 Urinary tract infection, site not specified; F05 Delirium due to known physiological condition; I47.2 Ventricular tachycardia; N18.3 Chronic kidney disease, stage 3 (moderate); E11.9 Type 2 diabetes mellitus without complications; Z79.84 Long term (current) use of oral hypoglycemic drugs; E66.9 Obesity, unspecified; Z68.34 Body mass index [BMI] 34.0-34.9, adult; I42.0 Dilated cardiomyopathy; T50.995A Adverse effect of other drugs, medicaments and biological substances, initial encounter; I25.10 Atherosclerotic heart disease of native coronary artery without angina pectoris; I25.2 Old myocardial infarction; Z98.61 Coronary angioplasty status; Z95.0 Presence of cardiac pacemaker; I34.0 Nonrheumatic mitral (valve) insufficiency; Z90.710 Acquired absence of both cervix and uterus; B95.2 Enterococcus as the cause of diseases classified elsewhere; E87.6 Hypokalemia; E83.42 Hypomagnesemia; R19.7 Diarrhea, unspecified; I49.5 Sick sinus syndrome; Z66 Do not resuscitate; I45.4 Nonspecific intraventricular block
CPT/HCPCS: 1NSP; CCU; 36415; 36592; 71045; 73562-LT; 80307; 81001; 82436; 87070; 87086; 87147; 93005; 93010; 93306; 95816; 97110-GO; 97116-GO; 97161-GP; 97530-GO; J1644; J1815; J1940; J3490; J7040